=== PATIENT | male | born 1955 | race Caucasian/White ===

== ENCOUNTER 2018-10-18 15:23 | Inpatient (IN) | payer BC ==
[~2018-10-18 15:23] MED LIST: Gadobenate Dimeglumine 529 MG/1 ML (20ML VIAL) ONE; ISOVUE-370 76%-LOCM 1 ML ONE
[2018-10-18] MEDS ORDERED: Acetaminophen 325 MG TAB PO PRN (16:15)
[2018-10-18] MEDS ORDERED: Zolpidem Tartrate 5 MG TAB PO PRN (16:17)
[2018-10-18] MEDS ORDERED: Ondansetron PF 4 MG/2 ML Vial SLOW IVP PRN (16:17)
[2018-10-18 16:24] VITALS: BMI 33.6
[2018-10-18 16:46] LABS: #Basophils 0.1 thou/uL (0.0-0.2); #Lymphocytes 1.3 thou/uL (1.20-3.40); #Monocytes 0.9 thou/uL (0.11-0.59); #Neutrophils 9.5 thou/uL (1.40-6.50); %Basophils 0.7 % (0.0-1.0); %Eosinophils 0.1 % (0.0-10.0); %Lymphocytes 10.7 % (21.0-51.0); %Monocytes 7.6 % (0.0-10.0); %Neutrophils 80.9 % (42.0-75.0); Hemoglobin 15.3 g/dL (14.0-18.0); Mean Corpuscular HGB CONC 34.2 g/dL (32.0-36.0); Mean Corpuscular Hemoglobin 31.1 pg (27.0-31.0); Mean Corpuscular Volume 90.9 fL (78.0-98.0); Mean Platelet Volume 8.3 fL (7.4-10.4); Platelet Count 269 thou/uL (130-400); RBC Distribution Width 11.3 % (11.5-14.5); Red Blood Cell (RBC) Count 4.92 mill/uL (4.70-6.10); White Blood Cell (WBC) Count 11.7 thou/uL (4.8-10.8)
[2018-10-18 16:51] LABS: PTT 26.1 SEC (22.9-36.1); Prothrombin Time 13.5 SEC (12.0-14.7)
[2018-10-18] MEDS: Sodium Chloride 0.9% 1,000 ML IV SCH (17:34)
[2018-10-18 18:09] LABS: ALT (SGPT) 43 U/L (8-55); AST (SGOT) 22 U/L (5-34); Albumin 4.2 g/dL (3.4-4.8); Alkaline Phosphatase 72 U/L (40-150); Anion Gap 15 mmol/L (10-20); BUN (Urea Nitrogen) 24 mg/dL (8.4-25.7); Bilirubin, Total 0.4 mg/dL (0.2-1.2); Calc. Creatinine Clearance 107 mL/min (70-130); Calcium 9.2 mg/dL (7.8-10.44); Carbon Dioxide 22 mmol/L (23-31); Chloride 102 mmol/L (98-107); Estimated GFR-MDRD 69; Globulin 3.2 g/dL (2.4-3.5); Glucose 166 mg/dL (80-115); Potassium 4.1 mmol/L (3.5-5.1); Protein, Total 7.4 g/dL (5.8-8.1); Sodium 135 mmol/L (136-145)
[2018-10-18] MEDS ORDERED: Pantoprazole 40 MG VIAL IVP SCH (19:00)
[2018-10-18] MEDS: Simvastatin 40 MG TAB PO SCH (19:35)
[2018-10-18] MEDS: Dexamethasone 4 MG in Sodium Chloride 0.9% 50 ML IVPB SCH (19:36)
--- NOTE | 2018-10-18 20:33 | CT ---
CT CHEST WITH CONTRAST CT ABDOMEN AND PELVIS WITH CONTRAST: Technique: Multiple contiguous axial images were obtained through the chest with IV enhancement. Indications: Cerebellar tumor. Concern for metastatic disease. FINDINGS: The lung kwan are clear. No evidence of nodule, mass, infiltrate or effusion. Mediastinum is unremarkable. No osseous identified. IMPRESSION: Unremarkable CT chest. CT ABDOMEN AND PELVIS: The liver, spleen, and pancreas unremarkable. Adrenal glands and kidneys unremarkable. Small bowel lo ops appear unremarkable. Colon is unremarkable. Urinary bladder unremarkable. Prostate unremarkable. Aorta normal caliber. No adenopathy is seen. Osseous structures are unremarkable. IMPRESSION: No acute finding. No evidence of metastasis. POS: [facility]
--- NOTE | 2018-10-18 22:18 | MRI ---
MRI BRAIN WITH AND WITHOUT CONTRAST: Technique: Multiplanar, multisequence MRI images were obtained of the brain. Indication: Follow up CT 10-13-18 which described evidence of a left cerebellar mass. FINDINGS: There is a density enhancing mass in the left posterior fossa dural base measuring approximately 4.1 cm AP dimension x 3.1 cm width in the axial plane on post contrast study. There is dural thickening a nd enhancement associated with this mass. There is enhancement involving the petrous ridge and mastoi d air cells indicating extention of soft tissue mass into the bony structures. Review of recent CT sh ows a mottled density with opacification of the petrous and mastoid air cells and some involvement an d erosion into the region of the left jugular bulb. Involvement of the left clivus and occipital bone . This mass is producing mass effect with surrounding vasogenic edema and compression of fourth ventric le with mild midline shift in the cerebellum. In the supratentorial region there are chronic ischemic white matter changes seen. The questioned area of cortical density seen in the anterior parasagittal left frontal cortex on CT i s shown to represent an area of signal abnormality on MR. This shows heterogeneous signal on FLAIR an d T2 with surrounding low signal with a tiny focus of central isodense signal. This shows significant signal loss on gradient echo consistent with hemosiderin deposition. Possibly a tiny focus of enhanc ement associated with this lesion. Cavernoma is suspected with prior hemorrhage. IMPRESSION: 1. Extraaxial densely enhancing mass in the left posterior fossa with measurements given above. There is involvement of the left occipital bone, mastoid air cells, and petrous ridge and possible left cl avus. There is vasogenic edema and mass effect in the cerebellum as noted above. Considerations inclu de an aggressive meningioma, hemangiopericytoma, and a dural based metastasis. 2. There is a focus of hemosiderin deposition in the left parasagittal frontal lobe which showed tiny focus of high density on CT. 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 3. Moderately severe chronic ischemic white matter change. POS: [facility]
[2018-10-19] MEDS: Dexamethasone 4 MG in Sodium Chloride 0.9% 50 ML IVPB SCH ×4 (00:12→23:19)
[2018-10-19] MEDS: Sodium Chloride 0.9% 1,000 ML IV SCH ×4 (05:50→19:56)
[2018-10-19] MEDS: Senokot 8.6 MG TAB PO SCH (08:22)
[2018-10-19] MEDS: Pantoprazole 40 MG VIAL IVP SCH (08:22)
[2018-10-19] MEDS: Docusate 100 MG CAP PO SCH (08:22)
[2018-10-19] MEDS: Amlodipine 5 mg/Benazepril 10 mg CAP PO SCH (08:22)
[2018-10-19] MEDS ORDERED: Non-Formulary Item 1 EACH (Omeprazole [Omeprazole] 40 MG) PO SCH (09:00)
[2018-10-19] MEDS ORDERED: Fentanyl 250 MCG/5 ML VIAL ONE (10:35)
[2018-10-19] MEDS ORDERED: Thrombin 5000 UNITS/5 ML VIAL ONE (10:48)
[2018-10-19] MEDS ORDERED: Sodium Chloride 0.9% 10 ML ONE (10:48)
[2018-10-19] MEDS ORDERED: Bacitracin Zinc Ointment 30 gm TUBE ONE (10:52)
[2018-10-19] MEDS ORDERED: Midazolam HCl 2 mg/2 ml Vial ONE (11:04)
--- NOTE | 2018-10-19 11:31 | PRG ---
DATE OF SERVICE: 10/19/2018 SUBJECTIVE: Mr. Tate was seen in my clinic yesterday. 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 There was significant mass effect on the left cerebellar hemisphere. It appears to be a [place] fibrous tumor. The left frontal small hyperdensity on CT may just be a small cavernoma. Certainly, the left posterior fossa mass will need to be resected. We will plan to do this today. I also talked to him about and obtained consent for harvesting of left fascial autograft should we need to reconstruct his dura. We will plan for procession in the operating room for left retrosigmoid craniotomy and tumor resection. Job ID: [id number]
[2018-10-19] MEDS ORDERED: Fentanyl 100 MCG/2 ML VIAL ONE ×3 (12:20→15:51)
[2018-10-19] MEDS ORDERED: Dexamethasone 4 mg/ml Vial SLOW IVP SCH (13:00)
[2018-10-19] MEDS ORDERED: SUGAMMADEX SODIUM 200 MG/2 ML VIAL ONE (14:25)
[2018-10-19] MEDS ORDERED: hydrALAZINE 20 MG/ML VIAL ONE (14:47)
[2018-10-19] MEDS ORDERED: PROPOFOL 200 MG/20 ML VIAL ONE (15:29)
[2018-10-19] MEDS ORDERED: Dexamethasone 20 MG/5 ML VIAL ONE (15:29)
[2018-10-19] MEDS ORDERED: Lidocaine 1% PF 5 ML VIAL ONE (15:29)
[2018-10-19] MEDS ORDERED: Metoprolol Tartrate 5 MG/5 ML VIAL ONE (15:29)
[2018-10-19] MEDS ORDERED: Ondansetron PF 4 MG/2 ML Vial ONE (15:29)
[2018-10-19] MEDS ORDERED: Rocuronium Bromide 10 MG/ML (10ML VIAL) ONE (15:29)
[2018-10-19] MEDS ORDERED: Vecuronium 10 MG VIAL ONE (15:29)
[2018-10-19] MEDS ORDERED: Glycopyrrolate 0.2 MG/ML 5 ML SYRINGE ONE (15:29)
[2018-10-19] MEDS ORDERED: Promethazine HCl 25 MG/ML VIAL SLOW IVP PRN (15:55)
[2018-10-19] MEDS ORDERED: Ondansetron HCl/PF 4 MG/2 ML Vial IVP PRN (15:55)
[2018-10-19] MEDS ORDERED: Promethazine HCl 25 MG/ML VIAL IM PRN (15:55)
[2018-10-19] MEDS: Morphine 4 MG/ML VIAL SLOW IVP PRN ×5 (16:23→23:20)
[2018-10-19] MEDS: hydrALAZINE 20 MG/ML VIAL SLOW IVP PRN ×2 (16:52→17:32)
--- NOTE | 2018-10-19 18:27 | CON ---
DATE OF CONSULTATION: HISTORY OF PRESENT ILLNESS: A 63-year-old gentleman, who is status post craniotomy for a left posterior fossa tumor. The patient tells me that he is having some headache. He was given some pain medicine as soon as he arrived in the ICU. Two years ago, he had empyema in the left chest requiring decortication and 2 weeks stay at a local hospital. He does snore, but no history of witnessed apnea. Never had a sleep test done. He has smoked a pack a day 25 years ago. Previous history of pneumonia, but no history of TB or asthma. PAST MEDICAL HISTORY: Hypertension, hyperlipidemia. PAST SURGICAL HISTORY: Previous surgeries; left lung decortication. MEDICATIONS: Chronic medication; 1. Amlodipine 1 capsule a day. 2. Effexor 75 a day. 3. Simvastatin 40 a day. 4. Omeprazole 40. 5. Toprol-XL 100. 6. Aspirin. ALLERGIES: NONE. 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 Alcohol minimal. Tobacco, as noted. FAMILY HISTORY: Unremarkable. REVIEW OF SYSTEMS: Otherwise, 10-point negative. PHYSICAL EXAMINATION: VITAL SIGNS: Postop in the ICU, pulse 75, blood pressure 145/86, sats are 96%. GENERAL: Awake, alert, responsive, very appropriate. Moves all 4 extremities. CHEST: Decreased breath sounds. No wheezing. CARDIAC: Normal S1 and S2. No gallops. ABDOMEN: No masses. LABORATORY DATA: Sodium is 135. H and H is 15 and 40. Lytes are normal. White count 11,000. IMPRESSION: 1. Status post left posterior craniotomy. 2. Former smoker. 3. Empyema. 4. Hypertension. 5. High cholesterol. PLAN: Pulmonary Critical Care ICU. We will follow her in the ICU. Otherwise, continue supportive care, PT. We will follow while in the ICU. Job ID: [id number]
[2018-10-19] MEDS: CEFAZOLIN 2 GM in Premix Bag 1 BAG IVPB SCH (20:37)
[2018-10-19] MEDS: Simvastatin 40 MG TAB PO SCH (20:39)
[2018-10-19] MEDS: Fluticasone Propionate Nasal Spray 16 gm Bottle NASAL SCH (21:46)
[2018-10-19] MEDS: HYDROcodone/Acetaminophen 5/325 mg Tablet PO PRN (23:19)
[2018-10-20] MEDS: Dexamethasone 4 MG in Sodium Chloride 0.9% 50 ML IVPB SCH ×3 (05:07→17:38)
[2018-10-20] MEDS: CEFAZOLIN 2 GM in Premix Bag 1 BAG IVPB SCH ×3 (05:07→20:33)
[2018-10-20] MEDS: Sodium Chloride 0.9% (PF) 10 ML VIAL FS PRN (08:12)
[2018-10-20] MEDS: Pantoprazole 40 MG VIAL IVP SCH (08:12)
[2018-10-20] MEDS: Senokot 8.6 MG TAB PO SCH (08:12)
[2018-10-20] MEDS: Docusate 100 MG CAP PO SCH (08:12)
[2018-10-20] MEDS: Fluticasone Propionate Nasal Spray 16 gm Bottle NASAL SCH ×2 (08:13→20:34)
--- NOTE | 2018-10-20 08:15 | PRG ---
DATE OF SERVICE: 10/20/2018 SUBJECTIVE: This morning, the patient is awake, alert, and responsive with headache. He is still on a Cardene drip. OBJECTIVE: VITAL SIGNS: Blood pressure 140/56, saturations are 97% on room air, respirations 18, pulse 80. Afebrile. GENERAL: He is awake, alert, and responsive. CHEST: Decreased breath sounds. No wheezing. CARDIAC: Normal S1, S2. No gallop.no murmers_ IMPRESSION: 1. Status post craniotomy, left posterior fossa tumor. 2. Hypertension. PLAN: Home medicine had been initiated this morning. Hopefully, can get him off the Cardene and discontinue the arterial line. We will follow while in the ICU. Job ID: [id number] [facility]TD[facility]
[2018-10-20] MEDS: HYDROcodone/Acetaminophen 5/325 mg Tablet PO PRN ×2 (08:22→20:33)
[2018-10-20] MEDS: Amlodipine 5 mg/Benazepril 10 mg CAP PO SCH (08:22)
--- NOTE | 2018-10-20 08:25 | CT ---
HEAD CT WITHOUT CONTRAST: HISTORY: Status post left craniotomy. COMPARISON: 10/13/2018 FINDINGS: There is post surgical change centered in the left cerebellar hemisphere, compatible with interval re section of a previously identified left posterior fossa extraaxial lesion. There are small amounts o f air and postoperative hemorrhage/fluid in the left posterior fossa. The surgical cavity appears to be 2.6 x 2.4 cm. There is some mass effect upon the 4th ventricle. [id number], no evidence of associated obstructive hydrocephalus. The cerebrum is unchanged. There is a stable hyperdensity along the left parafalcine region. Adequate aeration of the paranasal sinuses. There is stable opacification of the left mastoid air ce lls. Postoperative changes of the overlying scalp are noted. IMPRESSION: Findings compatible with recent resection of a left posterior fossa extraaxial mass. POS: [facility]
--- NOTE | 2018-10-20 09:01 | OP ---
DATE OF PROCEDURE: 10/19/2018 OPERATING ROOM: OR 12. WOUND CLASSIFICATION: Type 1 wound. CIGAR MAKING MACHINE SUPERVISOR: Julius Smith PA-C PREPROCEDURE DIAGNOSIS: Left posterior fossa extra-axial mass with cerebellar mass effect, midline shift, and edema with encasement of the sigmoid sinus and internal jugular vein and bony extension into the petrous and mastoid regions. POSTPROCEDURE DIAGNOSIS: Left posterior fossa extra-axial mass with cerebellar mass effect, midline shift, and edema with encasement of the sigmoid sinus and internal jugular vein and bony extension into the petrous and mastoid regions. PROCEDURES PERFORMED: 1. Left retrosigmoid craniectomy with resection of tumor, resection of dura. 2. Stereotactic resection of left cerebellar tumor consistent with meningioma. 3. [place] of left fascia melania graft for duraplasty, dural repair due to dural invasion by tumor. 4. Cranioplasty with titanium mesh up to 5 cm for repair of skull defect. 5. Resection of cerebellar tumor, left infratentorial posterior fossa meningioma with skeletonization of sigmoid sinus and jugular bulb. DESCRIPTION OF PROCEDURE: After informed consent was obtained from the patient, the patient was brought to the OR. Proper patient, pause and identifications were carried out. He was placed under excellent endotracheal anesthesia and positioned in the right lateral decubitus position. All appropriate points were padded. Left fascia melania region was identified and this area was sterilely cleansed, prepared, and draped and the patient's head was placed in the [place] head banquet waiter/waitress and the stereotactic accuracy was done with excellent precision following fixation in the [place] headholder. A lazy-S incision was drawn out following the clipping of hair that would allow for retrosigmoid approach to the tumor. This region was sterilely cleansed, prepared, and draped. Proper patient, pause, and identification were carried out. The wound was then opened with a combination of sharp, monopolar, and blunt dissection using anatomic and stereotactic landmarks based on MRI. A circular craniectomy was performed. We immediately encountered bone and the bone was sent to Pathology. We also encountered in the dura, tumor invasion through the dura. The dura was then opened using stereotactic and anatomic localization and tumor again encountered. The portions of the tumor were hemorrhagic, portions were firm and fibrous and the majority of it, I would describe as firm and fibrous relatively avascular tumor. I resected it off the cerebellum, protecting the white matter and followed it all the way to the wall of dura housing tumor that had encased the sigmoid sinus and jugular bulb. I skeletonized this region and there was no violation of the sinus. I assured freedom as well down to the foramen magnum and ensured freedom in the region of the cisterna magna with robust CSF flow. The brain was quite relaxed at the conclusion and I was very satisfied with an aggressive resection. Preliminary pathology was consistent with high-grade meningioma. I then copiously irrigated the wound and maximized hemostasis. Fascia melania graft on the left side was harvested through a separate incision and this was hemostased and irrigated clean and closed in anatomic layers. I then brought the fascia melania graft up to where the dura had been resected due to tumor invasion and sutured it in and then performed cranioplasty with titanium mesh over the less than 5 cm craniectomy defect. DuraSeal was placed as was dissolvable Gel-Foam for sealant. The wound was again maximally hemostased and closed in anatomic layers following sprinkling of vancomycin powder both in the fascia melania wound and the cranial wound. The patient then emerged from anesthesia. Job ID: [id number]
--- NOTE | 2018-10-20 09:53 | PRG ---
DATE OF SERVICE: 10/20/2018 SUBJECTIVE: Mr. Tate is postoperative day 1 from left retrosigmoid craniectomy with reconstruction with titanium mesh and left fascia melania graft following left skull base meningioma resection and debulking. He neurologically is intact with trace nystagmus. He is on a nicardipine drip for systolic blood pressure over 140. We will liberate this to 150 today in allowance and begin to mobilize him likely transfer to floor tomorrow. Job ID: [id number]
[2018-10-20] MEDS: Morphine 4 MG/ML VIAL SLOW IVP PRN (10:48)
[2018-10-20] MEDS: hydrALAZINE 20 MG/ML VIAL SLOW IVP PRN ×2 (10:50→12:08)
[2018-10-20] MEDS: Sodium Chloride 0.9% 1,000 ML IV SCH (11:21)
[2018-10-20] MEDS: traMADol HCl 50 MG TAB PO PRN (11:26)
[2018-10-20] MEDS: Simvastatin 40 MG TAB PO SCH (20:33)
[2018-10-21] MEDS: Dexamethasone 4 MG in Sodium Chloride 0.9% 50 ML IVPB SCH ×2 (00:37→05:28)
[2018-10-21] MEDS: Sodium Chloride 0.9% 1,000 ML IV SCH (00:42)
[2018-10-21] MEDS: CEFAZOLIN 2 GM in Premix Bag 1 BAG IVPB SCH ×3 (04:35→20:22)
[2018-10-21] MEDS: Senokot 8.6 MG TAB PO SCH (07:57)
[2018-10-21] MEDS: Docusate 100 MG CAP PO SCH (07:58)
[2018-10-21] MEDS: Pantoprazole 40 MG VIAL IVP SCH (07:58)
[2018-10-21] MEDS: Sodium Chloride 0.9% (PF) 10 ML VIAL FS PRN (07:58)
[2018-10-21] MEDS: Amlodipine 5 mg/Benazepril 10 mg CAP PO SCH (07:58)
[2018-10-21] MEDS: Fluticasone Propionate Nasal Spray 16 gm Bottle NASAL SCH ×2 (07:59→20:22)
[2018-10-21] MEDS: hydrALAZINE 20 MG/ML VIAL SLOW IVP PRN ×3 (08:50→20:22)
--- NOTE | 2018-10-21 09:07 | PRG ---
DATE OF SERVICE: 10/21/2018 SUBJECTIVE: This morning, he is awake, alert, and responsive. Some headache, but no shortness of breath. OBJECTIVE: VITAL SIGNS: Blood pressure is elevated at 162/91, sats 90%, pulse 114. CHEST: Decreased breath sounds. No wheezing. CARDIAC: Normal S1, S2. No gallops. ABDOMEN: No masses. IMPRESSION: 1. Status post craniotomy, awaiting path. 2. Hypertension. 3. Rhinitis. PLAN: Continue blood pressure medication as outlined. Supportive care, PT. We will follow while in the ICU. Job ID: [id number]
[2018-10-21] MEDS: traMADol HCl 50 MG TAB PO PRN (10:11)
--- NOTE | 2018-10-21 10:56 | ULT ---
ULTRASOUND WITH DOPPLER DUPLEX VENOUS LOWER EXTREMITY BILATERAL: CPT: 60440 ICD-10-PCS: B54D HISTORY: Edema, impaired mobility of lower extremities. TECHNIQUE: Color flow Doppler, spectral waveform analysis of pulsed Doppler, and pizano-scale imaging with marilynn jonh and augmentation, were used to evaluate the bilateral common femoral, femoral, popliteal, fruit grading supervisor ior tibial, and superficial femoral, veins; and the proximal portions of the profunda femoral and gre ater saphenous, veins. FINDINGS: There is appropriate compressibility and flow within the imaged deep vein system of each lower extrem ity without evidence of DVT identified. IMPRESSION: No deep vein thrombosis of visualized bilateral lower extremities. POS: [facility]
[2018-10-21] MEDS: Dexamethasone 4 mg/ml Vial SLOW IVP SCH ×3 (11:03→23:32)
--- NOTE | 2018-10-21 12:03 | PRG ---
DATE OF SERVICE: 10/21/2018 Mr. Tate is postoperative day two from left-sided rectosigmoid craniectomy with invasive meningioma resection. He is neurologically intact and doing well. We will start a Decadron taper. Ultrasound of the lower extremities had been performed, which is negative for DVT. We will transfer him to the floor. I anticipate dismissal over the next couple days. Job ID: [id number]
[2018-10-21] MEDS: Morphine 4 MG/ML VIAL SLOW IVP PRN (12:11)
[2018-10-21] MEDS: HYDROcodone/Acetaminophen 5/325 mg Tablet PO PRN ×2 (15:26→21:43)
[2018-10-21] MEDS: Simvastatin 40 MG TAB PO SCH (20:22)
[2018-10-22] MEDS: CEFAZOLIN 2 GM in Premix Bag 1 BAG IVPB SCH ×3 (03:59→20:01)
[2018-10-22] MEDS: Dexamethasone 1 MG TAB PO SCH ×4 (06:03→23:31)
[2018-10-22] MEDS: Amlodipine 5 mg/Benazepril 10 mg CAP PO SCH (08:32)
[2018-10-22] MEDS: Senokot 8.6 MG TAB PO SCH (08:33)
[2018-10-22] MEDS: Pantoprazole 40 MG VIAL IVP SCH (08:33)
[2018-10-22] MEDS: Fluticasone Propionate Nasal Spray 16 gm Bottle NASAL SCH ×2 (08:33→20:01)
[2018-10-22] MEDS: Docusate 100 MG CAP PO SCH (08:33)
[2018-10-22] MEDS: Sodium Chloride 0.9% (PF) 10 ML VIAL FS PRN (08:34)
--- NOTE | 2018-10-22 09:15 | PRG ---
DATE OF SERVICE: 10/22/2018 SUBJECTIVE: This morning, he is doing well. Slight cough, postnasal drip, but no fever or chills. OBJECTIVE: VITAL SIGNS: Temperature 99, respiratory rate 18, pulse 78, blood pressure 139/75. CHEST: Decreased breath sounds. No wheezing. CARDIAC: Normal S1 and S2. No gallops. ABDOMEN: No masses. IMPRESSION: 1. Status post craniotomy. 2. Postnasal drip, cough, hypertension. PLAN: PT, supportive care. Disposition as per primary care physician. Job ID: [id number]
--- NOTE | 2018-10-22 15:18 | PRG ---
DATE OF SERVICE: 10/22/2018 POSTOPERATIVE RECHECK: Mr. Tate is now postoperative day #3, having undergone stereotactic left craniotomy for tumor resection. Final pathology is still pending. The patient overall has been transferred out of the unit and did well overnight. He states his pain is under much better control and therefore his blood pressures remain under better control. Frankly, he looks very good and is tolerating a good diet. He is on a Decadron taper. We will likely plan for dismissal tomorrow as the patient again is improving very well postoperatively. He remains with good strength and is able to follow commands equally in all four extremities. I should know he has no horizontal nystagmus on exam today. He denies blurred vision and states that his vision also improved after we rounded on him yesterday. Otherwise, he is doing well. Call with any changes. Job ID: [id number]
[2018-10-22] MEDS: Simvastatin 40 MG TAB PO SCH (20:01)
[2018-10-22] MEDS: HYDROcodone/Acetaminophen 5/325 mg Tablet PO PRN (23:31)
[2018-10-23] MEDS: CEFAZOLIN 2 GM in Premix Bag 1 BAG IVPB SCH ×2 (03:51→12:16)
[2018-10-23] MEDS: Dexamethasone 1 MG TAB PO SCH ×2 (05:30→11:32)
[2018-10-23] MEDS: Senokot 8.6 MG TAB PO SCH (09:33)
[2018-10-23] MEDS: Amlodipine 5 mg/Benazepril 10 mg CAP PO SCH (09:33)
[2018-10-23] MEDS: Docusate 100 MG CAP PO SCH (09:33)
[2018-10-23] MEDS: Pantoprazole 40 MG VIAL IVP SCH (09:37)
--- NOTE | 2018-10-23 12:02 | PRG ---
DATE OF SERVICE: 10/23/2018 SUBJECTIVE: Mr. Tate is postoperative day #4 from left-sided retrosigmoid craniotomy for anaplastic meningioma resection. 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 This is invasive into his temporal bone, the petrous region and mastoid air cells along with the sigmoid sinus and internal jugular vein. Surgery was successful in debulking the portion up to the sinus and the patient neurologically is intact and doing very well with improvement even in his cerebellar findings. His wound is dry. We will plan for dismissal home and I have initiated Decadron taper. I have let them know the preliminary pathology and this will be confirmed over the coming days. Without question, he will need adjuvant radiation therapy, likely consistent with external beam radiation. Job ID: [id number]
[2018-10-23 12:21] VITALS: BP 138/82; TEMP 98.8
[2018-10-24] MEDS ORDERED: Dexamethasone 1 MG TAB PO SCH (06:00)
[2018-10-26] MEDS ORDERED: Dexamethasone 1 MG TAB PO SCH (06:00)
== END 2018-10-23 12:15 | disposition home or self-care (01) | DRG 25 ==
LOC: SURG A 15:23 → CCU 10-19 10:24 → SURG A 10-21 20:05
PROVIDERS: ADMIT Surgery; ATTEND Surgery
PROC: 00BC0ZX Excision of Cerebellum, Open Approach, Diagnostic (ICD-10-PCS; principal; 2018-10-19)
PROC: 0NB Head and Facial Bones, Excision (ICD-10-PCS; 2018-10-19)
PROC: 00U207Z Supplement Dura Mater with Autologous Tissue Substitute, Open Approach (ICD-10-PCS; 2018-10-19)
PROC: 0JBM0ZZ Excision of Left Upper Leg Subcutaneous Tissue and Fascia, Open Approach (ICD-10-PCS; 2018-10-19)
DX: C70.0 Malignant neoplasm of cerebral meninges (principal); G93.6 Cerebral edema; C79.51 Secondary malignant neoplasm of bone; I10 Essential (primary) hypertension; E78.00 Pure hypercholesterolemia, unspecified; R09.82 Postnasal drip; Z87.891 Personal history of nicotine dependence; Z79.82 Long term (current) use of aspirin; Z79.899 Other long term (current) drug therapy
CPT/HCPCS: 36415; 36416; 70450; 70553; 71260; 74177; 80053; 85025; 85610; 85730; 86850; 86900; 86901; 88307; 88311; 88325; 88331; 88334; 88341; 88342; 88360; 93005; 93010; 93970; A9577; C1713; C9113; J0360; J1100; J2001; J2250; J2270; J2405; J2704; J3010; J3370; J3490; J7050; J8540; Q9966

== ENCOUNTER 2018-10-26 15:51 | Emergency (ER) | payer BC ==
[~2018-10-26 15:51] MED LIST changes: -Gadobenate Dimeglumine 529 MG/1 ML (20ML VIAL) ONE
[2018-10-26] MEDS ORDERED: Fentanyl 100 MCG/2 ML VIAL ONE (16:14)
[2018-10-26 16:29] LABS: Mean Corpuscular HGB CONC 33.5 g/dL (32.0-36.0); Mean Corpuscular Hemoglobin 30.2 pg (27.0-31.0); Mean Corpuscular Volume 90.2 fL (78.0-98.0); Mean Platelet Volume 7.3 fL (7.4-10.4); Platelet Count 366 thou/uL (130-400); RBC Distribution Width 11.4 % (11.5-14.5); White Blood Cell (WBC) Count 29.1 thou/uL (4.8-10.8)
[2018-10-26 16:36] LABS: INR-International Normal Ratio 0.9; PTT 22.7 SEC (22.9-36.1); Prothrombin Time 12.6 SEC (12.0-14.7)
[2018-10-26 16:46] LABS: Band 2 % (5-11); Lymphocytes 6 % (21-51); MDiff Complete? YES; Monocytes 6 % (0-10); Neutrophil 86 % (42-75); Platelet Morphology Comment Appears Adequate
[2018-10-26 16:50] LABS: ALT (SGPT) 46 U/L (8-55); AST (SGOT) 17 U/L (5-34); Albumin 3.9 g/dL (3.4-4.8); Alkaline Phosphatase 83 U/L (40-150); Anion Gap 17 mmol/L (10-20); BUN (Urea Nitrogen) 20 mg/dL (8.4-25.7); Bilirubin, Total 0.6 mg/dL (0.2-1.2); Calc. Creatinine Clearance 0 mL/min (70-130); Calcium 9.5 mg/dL (7.8-10.44); Carbon Dioxide 25 mmol/L (23-31); Chloride 96 mmol/L (98-107); Estimated GFR-MDRD 89; Globulin 3.2 g/dL (2.4-3.5); Glucose 139 mg/dL (80-115); Potassium 4.4 mmol/L (3.5-5.1); Protein, Total 7.1 g/dL (5.8-8.1); Sodium 134 mmol/L (136-145)
--- NOTE | 2018-10-26 17:21 | CT ---
CT ARTERIOGRAM NECK WITH IV CONTRAST AND 3D MIP IMAGING CT ARTERIOGRAM HEAD WITH IV CONTRAST AND 3D MIP IMAGING CT BRAIN WITH AND WITHOUT IV CONTRAST 10/26/18 HISTORY: Headache. Recent surgery. COMPARISON: 10/20/18. FINDINGS: A very subtle ill-defined area of increased density associated with the left paramedial cortex on the current study likely represents a small amount of subarachnoid blood associated with recent surgery. Chronic ischemic small vessel disease is also evident. No abnormal areas of contrast enhancement. Normal branching of the great vessels at the aortic arch. Good flow into each carotid and vertebral s ystem. At the right carotid bifurcation, there is prominent calcification with a short segment focus of high grade stenosis, estimated at 80%, within the distal common carotid artery just below the bifurcation . Good flow into the internal carotid artery. On the left, there is calcification without significant stenosis evident. Intracranially, [place] is intact. Good flow into each cerebral and cerebellar system withou t focal aneurysm or stenosis. Postoperative changes of the left posterior fossa is present with a defect in the left cerebellum con sistent with recent surgery. IMPRESSION: Significant stenosis limited to the distal right common carotid artery where there is a short segment focus of high grade stenosis. Postoperative changes of left posterior fossa with minimal residual subarachnoid blood. POS: [facility]
--- NOTE | 2018-10-26 17:27 | CT ---
CT ARTERIOGRAM CHEST WITH IV CONTRAST AND 3D MIP IMAGIN10/26/18 HISTORY: Chest pain. Recent surgery. FINDINGS: CT arteriogram chest was performed immediately after angiogram of the head. There is suboptimal opaci fication of the pulmonary arteries. No central filling defects are evident. Normal branching of the g reat vessels of the aortic arch with calcification in the coronary arteries and aortic arch. Lungs ar e well inflated. No pleural fluid or pneumothorax. Small focus of cystic change at the left anterior medial lung base. IMPRESSION: 1. No CT evidence of pulmonary embolus. 2. Atherosclerosis. POS: [facility]
[2018-10-26] MEDS ORDERED: Morphine 4 MG/ML VIAL ONE (17:29)
[2018-10-26] MEDS ORDERED: Dexamethasone 10 MG/ML VIAL ONE (18:30)
[2018-10-26 18:43] LABS: Bilirubin Negative (Negative); Blood, Urine Negative (Negative); Clarity CLEAR (Clear); Glucose, Urine (Dipstick) Negative (Negative); Leukocyte Negative (Negative); Nitrite Negative (Negative); Protein, Urine (Dipstick) Negative (Neg-Trace); Specific Gravity, Urine 1.042 (1.002-1.036)
--- NOTE | 2018-10-27 01:51 | CON ---
DATE OF CONSULTATION: 10/26/2018 HISTORY OF PRESENT ILLNESS: Briefly, Mr. Tate is a 63-year-old gentleman with history of a left-sided aplastic meningioma, removed on 10/19/[address] Mckeon. The patient was released from the hospital on 10/23/2018, where he has been doing well at home and recuperating. Today, the patient took one of his Decadron pills and approximately half an hour later at 1:30, he started getting a headache. His pain medication hydrocodone did not relieve any of his pain and the headache progressed to be quite severe. The patient's took him to the emergency department. Currently, he is in the emergency department. He is uncomfortable, complaining of a headache wrapping around his head and some discomfort in his low back. He is afebrile, hypertensive, and otherwise neurologically intact. He states that he is most comfortable to stand to relieve some of his pain, however, he is very uncomfortable and the medications, the ER has given has not made any difference. The patient has an incision that is healing well on his left cranium and then, a fascia melania incision that is also healing well. REVIEW OF SYSTEMS: Ten-point review of systems has been completed and is negative, otherwise stated in the above HPI. PAST MEDICAL HISTORY: Meningioma removal, lung infection, outer wall of lung. Past medical history also includes hyperlipidemia and hypertension. PAST SURGICAL HISTORY: Meningectomy, , parietal left lobectomy. SOCIAL HISTORY: The patient drinks socially approximately once in a month. Denies drug use and is a former tobacco smoker of cigarettes, quit more than 10 years ago. PHYSICAL EXAMINATION: CONSTITUTIONAL: The patient is alert and oriented. He appears nontoxic. VITAL SIGNS: He is afebrile, hypertensive at 169/85. HEENT. Head is normocephalic. He has a healing incision on the left occipital region. Andressa are in place. There is no significant erythema or edema. No drainage. Pupils are equal, round, and reactive to light. Extraocular movements are intact. Hearing is muffled but intact. Moist mucous membranes. RESPIRATIONS: Normal work of breathing on room air. Symmetric chest rise. CARDIAC: Regular rate and rhythm. EXTREMITIES: The patient is moving all 4 extremities well. He has had 5/5 strength in deltoids, biceps, triceps, wrist extension, finger extension, hip flexion, knee flexion, knee extension, dorsiflexion, and plantar flexion. There is no change in sensation. NEUROLOGIC: The patient is alert and oriented to person, place, and time. Speech is spontaneous and fluent. Normal fund of knowledge. Cranial nerves II through XII are intact. There are no focal motor or sensory deficits noted. DIAGNOSTIC STUDIES: Extensive imaging has been completed, showing only a slight increase in ventricle size in comparison to previous CT of the head as well as slight increase in vasogenic edema, surrounding of the tumor location, there is an area of healing where the tumor was removed. ASSESSMENT AND PLAN: Mr. Tate is a 63-year-old male recovering from an aplastic meningioma removal on 10/19/2018. I have spoken with Dr. Peres and Dr. Mckeon, and we would like to treat his head pain and prevent any further vasogenic edema with Decadron 10 mg and we will restart his steroid taper more slowly. If this does not relieve the patient's pain, then , we will admit him for observation overnight and for pain control. Job ID: [id number] [facility]
== END 2018-10-26 20:05 | disposition home or self-care (01) ==
LOC: ERS 15:51
DX: G89.18 Other acute postprocedural pain (principal); R51 Headache; E78.5 Hyperlipidemia, unspecified; I10 Essential (primary) hypertension; Z87.891 Personal history of nicotine dependence; Z79.899 Other long term (current) drug therapy
CPT/HCPCS: 70450; 70496; 70498; 71275; 80053; 81003; 84484; 85025; 85610; 85730; 93005; 96374; 96375; J1100; J2270; J3010; Q9966

== ENCOUNTER 2018-10-29 12:15 | Inpatient (IN) | payer BC ==
[2018-10-29] MEDS ORDERED: Acetaminophen 325 MG TAB PO PRN (12:50)
[2018-10-29] MEDS ORDERED: traMADol HCl 50 MG TAB PO PRN ×2 (12:51→16:44)
[2018-10-29] MEDS ORDERED: Ondansetron PF 4 MG/2 ML Vial SLOW IVP PRN (12:51)
[2018-10-29] MEDS ORDERED: HYDROcodone/Acetaminophen 5/325 mg Tablet PO PRN ×2 (12:51→16:39)
[2018-10-29] MEDS ORDERED: Scopolamine 1.5 mg/72 hour Patch TOP PRN (12:52)
[2018-10-29] MEDS ORDERED: Sodium Chloride 0.9% 1,000 ML IV SCH (13:00)
[2018-10-29 13:57] LABS: Hemoglobin 15.2 g/dL (14.0-18.0); Mean Corpuscular HGB CONC 33.7 g/dL (32.0-36.0); Mean Corpuscular Hemoglobin 30.5 pg (27.0-31.0); Mean Corpuscular Volume 90.5 fL (78.0-98.0); Mean Platelet Volume 7.2 fL (7.4-10.4); Platelet Count 359 thou/uL (130-400); RBC Distribution Width 11.4 % (11.5-14.5); Red Blood Cell (RBC) Count 4.97 mill/uL (4.70-6.10); White Blood Cell (WBC) Count 20.9 thou/uL (4.8-10.8)
[2018-10-29 14:09] LABS: ALT (SGPT) 68 U/L (8-55); AST (SGOT) 30 U/L (5-34); Alkaline Phosphatase 81 U/L (40-150); Anion Gap 19 mmol/L (10-20); BUN (Urea Nitrogen) 21 mg/dL (8.4-25.7); Bilirubin, Total 0.8 mg/dL (0.2-1.2); Calc. Creatinine Clearance 125 mL/min (70-130); Calcium 9.7 mg/dL (7.8-10.44); Carbon Dioxide 21 mmol/L (23-31); Chloride 89 mmol/L (98-107); Estimated GFR-MDRD 82; Globulin 3.6 g/dL (2.4-3.5); Glucose 122 mg/dL (80-115); Potassium 4.3 mmol/L (3.5-5.1); Protein, Total 7.6 g/dL (5.8-8.1); Sodium 125 mmol/L (136-145)
[2018-10-29 14:25] LABS: Lymphocytes 6 % (21-51); MDiff Complete? YES; Monocytes 10 % (0-10); Neutrophil 84 % (42-75); Platelet Morphology Comment Appears Adequate; RBC Morphology Normal
[2018-10-29] MEDS: Morphine 4 MG/ML VIAL SLOW IVP PRN ×6 (14:48→22:28)
[2018-10-29] MEDS: CEFAZOLIN 2 GM in Premix Bag 1 BAG IVPB SCH ×2 (15:51→21:28)
--- NOTE | 2018-10-29 16:06 | CT ---
CT HEAD WITHOUT CONTRAST: 10/29/2018 HISTORY: Severe headache and light sensitivity, post craniotomy, on 09/29/2018. COMPARISON: 10/26/2018 FINDINGS: Post surgical changes of the left posterior fossa are again present and are unchanged, compared to th e recent study, with overlying skin clips and scalp soft tissue swelling. The resection site in the left posterior fossa is overall similar to the prior exam. There is a stable, hyperdense, subcentimeter focus in a left anterior frontal parafalcine location. There is a hyperdense focus in the right parietal lobe, which is within the sulcus and is more tubula r in configuration, probably related to prominence of a vessel. This was also present on prior exam. No new focal area of hemorrhage is seen, and there is no acute infarction identified. No midline s hift or mass effect is appreciated. Opacification of the left mastoid air cells is again noted. IMPRESSION: 1. Stable postoperative changes, left posterior fossa. 2. Stable subcentimeter hyperdense focus, left anterior frontal parafalcine location. 3. Stable chronic small vessel ischemic changes. 4. Stable opacification of the left mastoid air cells. POS: [facility]
[2018-10-29] MEDS: Acetaminophen 1,000 MG in Premix Bag 1 BAG IVPB PRN ×2 (17:47→23:33)
[2018-10-29] MEDS: Dexamethasone 4 mg/ml Vial SLOW IVP SCH ×2 (17:47→23:08)
[2018-10-29] MEDS ORDERED: Sodium Chloride 256 MEQ in Sterile Water Injection 936 ML IV SCH (20:15)
[2018-10-29] MEDS: Atorvastatin Calcium 20 MG TAB PO SCH (20:41)
[2018-10-29] MEDS ORDERED: Simvastatin 40 MG TAB PO SCH (21:00)
[2018-10-29 22:17] LABS: Anion Gap 16 mmol/L (10-20); BUN (Urea Nitrogen) 19 mg/dL (8.4-25.7); Calc. Creatinine Clearance 116 mL/min (70-130); Carbon Dioxide 22 mmol/L (23-31); Chloride 90 mmol/L (98-107); Estimated GFR-MDRD 76; Glucose 157 mg/dL (80-115); Potassium 4.2 mmol/L (3.5-5.1); Sodium 124 mmol/L (136-145)
[2018-10-29 23:25] LABS: Sodium 126 mmol/L (136-145)
[2018-10-30] MEDS: Morphine 4 MG/ML VIAL SLOW IVP PRN ×2 (00:31→18:22)
[2018-10-30] MEDS: tiZANidine HCl 4 MG TAB PO PRN ×2 (01:23→13:19)
[2018-10-30] MEDS ORDERED: Fentanyl 100 MCG/2 ML VIAL SLOW IVP SCH ×2 (01:30→03:00)
[2018-10-30] MEDS ORDERED: Dexamethasone 4 mg/ml Vial SLOW IVP SCH (02:15)
[2018-10-30] MEDS ORDERED: HYDROcodone/Acetaminophen 10/325 mg Tablet PO PRN ×4 (02:20→17:11)
[2018-10-30] MEDS ORDERED: fentaNYL Citrate/PF 2,000 MCG in Sodium Chloride 0.9% 60 ML IV PRN (02:48)
[2018-10-30 03:36] LABS: Sodium 123 mmol/L (136-145)
[2018-10-30] MEDS: Dexamethasone 4 mg/ml Vial SLOW IVP SCH ×4 (06:08→23:03)
[2018-10-30] MEDS: CEFAZOLIN 2 GM in Premix Bag 1 BAG IVPB SCH ×3 (06:08→22:16)
[2018-10-30] MEDS: Insulin Regular 300 UNITS/3 ML VIAL SC PRN ×2 (06:14→12:31)
[2018-10-30 07:44] LABS: Sodium 126 mmol/L (136-145)
[2018-10-30] MEDS: Pantoprazole 40 MG VIAL IVP SCH (08:44)
[2018-10-30] MEDS: Dexamethasone 1 MG TAB PO SCH (08:45)
[2018-10-30] MEDS: Amlodipine 5 mg/Benazepril 10 mg CAP PO SCH (08:45)
[2018-10-30] MEDS: Acetaminophen 1,000 MG in Premix Bag 1 BAG IVPB PRN ×2 (08:49→20:52)
[2018-10-30] MEDS ORDERED: AMLODIPINE BESYLATE PO SCH (09:00)
[2018-10-30] MEDS ORDERED: Aspirin Chewable 81 MG TAB PO SCH (09:00)
[2018-10-30] MEDS ORDERED: BENAZEPRIL PO SCH (09:00)
[2018-10-30 09:22] LABS: Hemoglobin 15.5 g/dL (14.0-18.0); Mean Corpuscular Hemoglobin 29.5 pg (27.0-31.0); Mean Corpuscular Volume 89.3 fL (78.0-98.0); Mean Platelet Volume 7.1 fL (7.4-10.4); Platelet Count 375 thou/uL (130-400); RBC Distribution Width 11.4 % (11.5-14.5); Red Blood Cell (RBC) Count 5.25 mill/uL (4.70-6.10)
[2018-10-30 10:08] LABS: Sodium, Urine 118 mmol/L (Not Available)
[2018-10-30] MEDS ORDERED: HYDROmorphone 10 mg/100 ml CADD IV PRN (10:14)
[2018-10-30] MEDS ORDERED: Polyethylene Glycol 3350 17 GM Packet PO SCH (10:15)
[2018-10-30] MEDS: hydrALAZINE 20 MG/ML VIAL SLOW IVP PRN ×3 (10:27→20:05)
[2018-10-30] MEDS ORDERED: Sodium Chloride 256 MEQ in Sterile Water Injection 936 ML IV SCH (10:47)
[2018-10-30 11:06] LABS: Anion Gap 16 mmol/L (10-20); BUN (Urea Nitrogen) 22 mg/dL (8.4-25.7); Calc. Creatinine Clearance 141 mL/min (70-130); Calcium 9.7 mg/dL (7.8-10.44); Carbon Dioxide 18 mmol/L (23-31); Chloride 96 mmol/L (98-107); Estimated GFR-MDRD Greater than 90; Glucose 172 mg/dL (80-115); Potassium 4.3 mmol/L (3.5-5.1); Sodium 126 mmol/L (136-145)
--- NOTE | 2018-10-30 11:15 | PRG ---
DATE OF SERVICE: 10/30/2018 SUBJECTIVE: Mr. Tate is approximately 10 days status post rectosigmoid resection of anaplastic meningioma. He had a fairly uneventful postoperative course and was discharged home. A couple days after discharge, he did bounce back to the ER for a debilitating headache. He was medicated at that time and sent home. He was seen in the clinic setting yesterday by Julius Smith PA-C. At that point in time, he had had leaking from his retrosigmoid incision located on the left side. That was oversewn in the clinic and due to severe pain, he was admitted to hospital for observation. He has had a very rough 24 hours reporting initially severe headache and pain in the neck and shoulders. This has now moved to where he has severe low back pain. We had a very difficult time controlling his pain. We had the Pain service see him and they have placed him on a fentanyl [employer]. We now request that they increase that to something a bit more potent and longer lasting. For a brief period of time, he did not have any leakage, but now he started to leak again out of the wound. I believe he needs a lumbar drain. He is in too much pain at this point; however, to affectively place a lumbar drain. Once we maintain improved pain control, we will place a lumbar drain at some point late this morning or early afternoon. He also has what I believe is likely symptomatic hyponatremia. He had a sodium of 135 approximately 6 months ago in a different setting. He has now been teetering in the mid to low 120s. We started him on hypertonic 1.5% saline where that had been some fluctuation in his levels, but it appears there is now an upward trend. He has some delirium based on what the family is telling me. He answers my questions appropriately but appers agitated. Our goal is to continue with treatment of his low sodium levels. I believe this will also improve the way he feels clinically. The goal today is improved pain control, placement of lumbar drain, and correction of his hyponatremia. Job ID: [id number] [facility]
[2018-10-30 11:43] LABS: Band 1 % (5-11); Lymphocytes 1 % (21-51); MDiff Complete? YES; Monocytes 2 % (0-10); Neutrophil 96 % (42-75); Platelet Morphology Comment Appears Adequate; White Blood Cell (WBC) Count 25.8 thou/uL (4.8-10.8)
--- NOTE | 2018-10-30 12:13 | RAD ---
KUB: COMPARISON: None. HISTORY: Back pain and abdominal pain. FINDINGS: A single view of the abdomen shows a nonspecific, nonobstructed bowel gas pattern. Air and stool is seen throughout the colon to the level of the rectum. Moderate stool retention is seen. No suspicio us calcifications are present. IMPRESSION: Moderate stool retention without evidence of obstruction. POS: [facility]
[2018-10-30 12:21] LABS: Osmolality, Urine 934 mOsm/kg (200-1150)
[2018-10-30 14:29] LABS: Sodium 125 mmol/L (136-145)
[2018-10-30] MEDS ORDERED: Acetaminophen 1,000 MG in Premix Bag 1 BAG IVPB SCH (15:30)
[2018-10-30] MEDS ORDERED: Sodium Chloride 3% 500 ML IVPB SCH (15:30)
[2018-10-30] MEDS ORDERED: CCU Electrolyte Replacement 1 EACH FS ONE (15:57)
[2018-10-30] MEDS ORDERED: Potassium Phosphate 9 MMOL in Sodium Chloride 0.9% 100 ML IVPB PRN (16:07)
[2018-10-30] MEDS ORDERED: CCU ELECTROLYTE REPLACEMENT PROTOCOL FS PRN (16:07)
[2018-10-30] MEDS ORDERED: Magnesium Oxide 400 MG TAB PO PRN ×2 (16:07)
[2018-10-30] MEDS ORDERED: Potassium Chloride 20 MEQ TAB PO PRN (16:07)
[2018-10-30] MEDS ORDERED: Potassium Chloride 40 MEQ in Sodium Chloride 0.9% 250 ML 250 ML IVPB PRN (16:07)
[2018-10-30] MEDS ORDERED: Potassium Phosphate 12 MMOL in Sodium Chloride 0.9% 250 ML 250 ML IV PRN (16:07)
[2018-10-30] MEDS ORDERED: Potassium Chloride 40 MEQ in Premix Bag 1 BAG IVPB PRN (16:07)
[2018-10-30] MEDS ORDERED: Magnesium 2 GM/50 ML 2 GM in Premix Bag 1 BAG IVPB PRN (16:07)
[2018-10-30] MEDS ORDERED: PHOS-NAK 1 PKT PACK PO PRN ×2 (16:07)
[2018-10-30] MEDS ORDERED: Potassium Phosphate 15 MMOL in Sodium Chloride 0.9% 250 ML 250 ML IV PRN (16:07)
--- NOTE | 2018-10-30 16:42 | RAD ---
CHEST ONE VIEW: 10/30/18 INDICATION: Central line placement. COMPARISON: None. FINDINGS: There is a right IJ central venous catheter in place. No pneumothorax is evident. Low lung volumes ac centuate the cardiac silhouette and pulmonary vasculature. No definite acute air space opacities, ple ural effusions, or pneumothorax evident. IMPRESSION: New right IJ catheter venous catheter with tip projecting in the region of the right atrium. No pneum othorax. POS: [facility]
[2018-10-30 16:46] LABS: Sodium 128 mmol/L (136-145)
--- NOTE | 2018-10-30 16:56 | OP ---
DATE OF PROCEDURE: 10/30/2018 PREOPERATIVE DIAGNOSIS: Acute syndrome of inappropriate antidiuretic hormone secretion with severe hyponatremia. POSTOPERATIVE DIAGNOSIS: Acute syndrome of inappropriate antidiuretic hormone secretion with severe hyponatremia. PROCEDURE PERFORMED: Placement of right internal jugular central venous catheter. INDICATIONS FOR PROCEDURE: This is a 63-year-old man, who is 11 days status post retrosigmoid craniectomy with resection of tumor. The patient was readmitted with acute hyponatremia with profound neurologic deficits. I have been asked to place a central venous catheter to facilitate hypertonic salt solution. DESCRIPTION OF PROCEDURE: Informed consent was obtained from the patient's . The patient was placed in supine position. Chest wall was sterilely prepped and draped in usual fashion. The skin below the left clavicle was anesthetized with 1% lidocaine. Left subclavian vein was cannulated with an 18-gauge introducer needle returning dark venous blood. Multiple attempts to pass guidewire were unsuccessful. Therefore, we decided to proceed with the placement of internal jugular central venous catheter. Thus, we used different set of equipments and catheter. I then re-gowned and draped after the right neck was sterilely prepped and draped in usual fashion. The skin was anesthetized with 1% lidocaine. Right internal jugular vein was cannulated with an 18-gauge introducer needle returning dark venous blood. Guidewire was passed through the needle and placed in the right internal jugular vein without resistance. Needle was withdrawn over the guidewire. Stab incision was made adjacent to the guidewire. Dilator was passed over the guidewire to dilate the subcutaneous tissue. Triple-lumen central venous catheter was advanced over the guidewire and placed in the right internal jugular vein without resistance stopping at the 15 cm suri. Guidewire was removed. Dark venous blood was aspirated from all 3 ports, which were individually flushed with saline. Catheter was secured to anterior neck using 3-0 silk suture at 2 points. Biopatch and sterile dressing were applied. The patient tolerated the procedure without any apparent complication and remains in critical, but stable condition. Chest x-ray confirmed proper placement. No pneumothorax present. Job ID: [id number]
[2018-10-30] MEDS: HumaLOG 300 UNITS/3 ML VIAL SC PRN ×2 (18:24→20:33)
--- NOTE | 2018-10-30 18:25 | PRG ---
DATE OF SERVICE: 10/30/2018 SUBJECTIVE: Mr. Tate was moved from the floor to the ICU. He was moved because he became more delirious and less interactive. His sodium levels continued within the low-to-mid 120s. I consulted both Dr. Pappas and Dr. Gifford to assist with central line placement and management of his electrolyte disturbance. He has now had a central line placed and he has been started on 3% hypertonic saline. In the ICU, he is awake and alert, but minimally interactive. He looks around and moves all 4 extremities spontaneously. Over the course of most of the day, he had a low-grade fever. By the time he reached the ICU, he had spiked to 103, although , it is back down to around 99 at this point in time. We will go ahead and victoria- culture him to rule out infection. I inspected his incision and currently it is not leaking. He is resting comfortably in supine position in the bed. We will continue to work toward correcting his electrolyte abnormalities. We will continue to evaluate for infection. Assuming that he remains calm, we will work toward CT scan in the morning after potential placement of lumbar drain. I think we also need to be vigilant with respect to what may be alcohol withdrawal. His indicates that he drinks at least 6 beers at night. She states he has not had anything in a few weeks, but nonetheless delerium tremens is a real possibility given his constellation of symptoms since admission. I have consulted Dr. Guardado to assist with additional management while in the ICU. Job ID: [id number] [facility]
[2018-10-30 18:47] LABS: Sodium 128 mmol/L (136-145)
[2018-10-30] MEDS: Cefepime 2 GM in Sodium Chloride 0.9% 100 ML IVPB SCH (20:02)
[2018-10-30] MEDS: Vancomycin HCl 1.5 GM in Sodium Chloride 0.9% 250 ML 300 ML IVPB SCH (20:03)
[2018-10-30] MEDS: Polyethylene Glycol 3350 17 GM Packet PO SCH (20:17)
[2018-10-30] MEDS: Atorvastatin Calcium 20 MG TAB PO SCH (20:17)
[2018-10-30 20:33] LABS: Sodium 127 mmol/L (136-145)
[2018-10-30] MEDS ORDERED: Thiamine HCl 200 MG/2 ML VIAL SLOW IVP SCH (20:45)
[2018-10-30 22:17] LABS: Sodium 127 mmol/L (136-145)
[2018-10-31] MEDS: Morphine 4 MG/ML VIAL SLOW IVP PRN ×2 (00:21→04:41)
[2018-10-31] MEDS: Labetalol HCl 100 MG/20 ML VIAL SLOW IVP PRN ×3 (00:33→10:03)
[2018-10-31] MEDS ORDERED: Sodium Chloride 3% 500 ML IVPB SCH (04:15)
[2018-10-31] MEDS: Acetaminophen 1,000 MG in Premix Bag 1 BAG IVPB PRN ×2 (04:56→13:44)
[2018-10-31] MEDS: Dexamethasone 4 mg/ml Vial SLOW IVP SCH ×3 (05:00→17:08)
[2018-10-31] MEDS: CEFAZOLIN 2 GM in Premix Bag 1 BAG IVPB SCH ×2 (05:00→13:45)
[2018-10-31 05:06] LABS: Anion Gap 20 mmol/L (10-20); BUN (Urea Nitrogen) 9 mg/dL (8.4-25.7); Calc. Creatinine Clearance 168 mL/min (70-130); Calcium 9.5 mg/dL (7.8-10.44); Carbon Dioxide 17 mmol/L (23-31); Chloride 95 mmol/L (98-107); Estimated GFR-MDRD Greater than 90; Glucose 173 mg/dL (80-115); Potassium 3.7 mmol/L (3.5-5.1); Sodium 128 mmol/L (136-145)
[2018-10-31 05:13] LABS: Band 11 % (5-11); Elliptocytes SLIGHT = 2-5 cells (100X) (0-1/hpf); Hemoglobin 14.1 g/dL (14.0-18.0); Lymphocytes 3 % (21-51); MDiff Complete? YES; Mean Corpuscular HGB CONC 32.8 g/dL (32.0-36.0); Mean Corpuscular Hemoglobin 29.7 pg (27.0-31.0); Mean Corpuscular Volume 90.4 fL (78.0-98.0); Mean Platelet Volume 7.1 fL (7.4-10.4); Metamyelocyte 1 % (0-0); Monocytes 3 % (0-10); Neutrophil 82 % (42-75); Platelet Count 248 thou/uL (130-400); Platelet Morphology Comment Appears Adequate; RBC Distribution Width 11.5 % (11.5-14.5); Red Blood Cell (RBC) Count 4.75 mill/uL (4.70-6.10); White Blood Cell (WBC) Count 29.2 thou/uL (4.8-10.8)
[2018-10-31] MEDS: HumaLOG 300 UNITS/3 ML VIAL SC PRN ×4 (05:18→21:34)
[2018-10-31 05:37] LABS: Sodium 128 mmol/L (136-145)
[2018-10-31] MEDS: Cefepime 2 GM in Sodium Chloride 0.9% 100 ML IVPB SCH (07:39)
--- NOTE | 2018-10-31 07:46 | PRG ---
DATE OF SERVICE: 10/31/2018 SUBJECTIVE: Mr. Tate is on the second day of his hospital admission. The last 36 hours had been quite turbulent for him. He is now in the ICU A2. His sodium which fell to 127 early last night, is now corrected back to 128, and 3% saline is still being infused with a recheck planned in an hour. White blood cell count has risen from 25 to 29, so this will need to continue to be watched. He is less responsive for me today, although his pupils are more briskly reactive and equal. Temperature became a problem overnight and a cooling blanket was started. He is receiving doses of Ofirmev p.r.n. for this purpose. He no longer is shaking, although he does not follow commands for me exclusively this morning. Nurse states that overnight he would still follow commands from [id number] and is difficult to arouse. 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 Plan this morning was to place a lumbar drain. However, his incision is no longer leaking, so we may not need to proceed that for that reason, but we will discuss with Dr. Weir to make that final decision. For now, we will continue to watch sodiums and track his neurologic progress. Job ID: [id number]
[2018-10-31 08:02] LABS: Actual Bicarbonate (HCO3a) 16.9 mEq/L (22-28); Base Excess (BEa) -3.6 mEq/L (-2.0 to +3.0); Calcium, Ionized 1.19 mmol/L (1.12-1.30); Carboxyhemoglobin (COHb) 0.7 gm% (0.0-3.0); Hemoglobin (Hb) 14.3 g/dL (14.0-18.0); O2 Tension (PaO2) 66.4 mmHg (> 80.0); Potassium - ABG Lab 3.51 mmol/L (3.70-5.30); pH, Arterial 7.52 (7.35-7.45)
[2018-10-31 08:07] LABS: ALV-art Gradient 135.385 (0-20); CO2 Tension 21.1 mmHg (35.0-45.0); Puncture Site RRA
[2018-10-31 08:24] LABS: Sodium 128 mmol/L (136-145)
[2018-10-31] MEDS: Vancomycin HCl 1.5 GM in Sodium Chloride 0.9% 250 ML 300 ML IVPB SCH ×2 (08:24→19:42)
[2018-10-31] MEDS ORDERED: Lidocaine 1% (PF) 30 ML VIAL ONE (08:37)
[2018-10-31] MEDS ORDERED: Thiamine HCl 200 MG/2 ML VIAL SLOW IVP SCH (09:00)
[2018-10-31] MEDS: Amlodipine 5 mg/Benazepril 10 mg CAP PO SCH (09:14)
[2018-10-31] MEDS: Polyethylene Glycol 3350 17 GM Packet PO SCH ×2 (09:15→20:11)
--- NOTE | 2018-10-31 09:48 | RAD ---
RADIOGRAPH CHEST 1 VIEW: DATE: 10/31/2018. TIME: 7:27 a.m. HISTORY: A 63-year-old male with respiratory failure. FINDINGS: There is no air space density, pulmonary edema, or pneumothorax. The lateral costophrenic angles are sharp. Central vascular catheter descending from the right neck distal tip overlying SVC/right atri al junction, is presumably entering through the right internal jugular vein. No interval change comp ared to 10/30/2018. IMPRESSION: 1. No acute pulmonary findings. 2. Right-sided central vascular catheter with distal tip overlying the superior vena cava/right atri al junction. christine [] POS: [facility]
[2018-10-31] MEDS: Meropenem 2 GM in Admixture Fee 1 EACH IVPB SCH ×3 (09:53→23:18)
[2018-10-31] MEDS: Dexamethasone 1 MG TAB PO SCH (09:54)
[2018-10-31] MEDS: Pantoprazole 40 MG VIAL IVP SCH (09:59)
[2018-10-31] MEDS: Sodium Chloride 0.9% (PF) 10 ML VIAL FS PRN (10:00)
--- NOTE | 2018-10-31 10:11 | PRG ---
DATE OF SERVICE: 10/31/2018 SUBJECTIVE: This morning, he remains in the ICU, encephalopathic. He is having some shallow respirations as per respiratory. OBJECTIVE: VITAL SIGNS: Saturations are 95% on 2 L nasal O2, blood pressure is 163/75, pulse 80, and respirations 18. CHEST: Bilateral rhonchi. CARDIAC: Sinus tach. ABDOMEN: Soft without any masses. LABORATORY DATA: White count 29,000, hemoglobin and hematocrit of 14 and 43, and platelet count 248. PO2 of 66, pCO2 of 21, pH 7.52 on 3 L. Sodium is 128, improved. Renal function is normal, and his blood cultures growing gram-negative rods. IMPRESSION: 1. Gram-negative sepsis. 2. Status post craniotomy. 3. Alcohol abuse. 4. Encephalopathy. 5. Hyponatremia. PLAN: Lumbar drain is going to be inserted today. I have increased his dose of Maxipime infection. Otherwise, continue supportive care and neb treatments. He may be intubated prior to the procedure. Discussed with Dr. Weir, neurosurgeon on-call. One-half hour of critical time. Job ID: [id number]
[2018-10-31] MEDS ORDERED: Benzocaine 20% Spray 60 ML CAN ONE (11:11)
--- NOTE | 2018-10-31 11:21 | CT ---
PRELIMINARY REPORT/[facility]/EMERGENCY AFTER HOURS PROCEDURE: Addendum created by Travon Arredondo MD on 10/31/2018 7:13 AM Central Time ([place] & [place]) Prior report subs equently submitted for review. LEFT anterior frontal parafalcine hyperdensity is unchanged. Initial R eport created on 10/31/2018 4:10 AM Central Time ([place] & [place]) EXAM: CT Head Without Contrast EXAM DATE/TIME: 10/31/2018 3:48 AM CLINICAL HISTORY: 63 years old, male; Screening exam; Prior surgery; Surgery type: Craniotomy; Patient HX: Eval for hyd rocephalus TECHNIQUE: Axial computed tomography images of the head/brain without contrast. COMPARISON: CT Brain WO Con 10/29/2018 3:19 PM FINDINGS: Brain: There is volume loss and hypoattenuation involving the LEFT cerebellum probably from prior cleo gical intervention. There are confluent areas of hypoattenuation within the periventricular and subco rtical white matter compatible with moderate chronic microvascular ischemic change. Ventricles: The third and fourth ventricles appears increased in size when compared with prior exam a nd there is mild prominence of the temporal horns raising the possibility of hydrocephalus. Bones/joints: Patient is post LEFT occiput craniotomy. Sinuses: Visualized sinuses are unremarkable. No acute sinusitis. Mastoid air cells: There is opacification of the LEFT mastoid air cells. Soft tissues: Unremarkable. IMPRESSION: The third and fourth ventricles appears increased in size when compared with prior exam and there is mild prominence of the temporal horns raising the possibility of hydrocephalus. Thank you for allowing us to participate in the care of your patient. Dictated and Authenticated by: Travon Arredondo MD 10/31/2018 4:10 AM Central Time ([place] & [place]) FINAL REPORT EMERGENT AFTER HOURS CT OF THE BRAIN WITHOUT CONTRAST: FINDINGS/IMPRESSION: I agree with the findings and impression given in the preliminary report per [facility] physician. Findin gs are suggestive of hydrocephalus. The lateral ventricles and third ventricle are more prominent th an on the prior examination. POS: [facility]
[2018-10-31 11:34] LABS: Sodium 129 mmol/L (136-145)
--- NOTE | 2018-10-31 11:37 | PRG ---
DATE OF SERVICE: 10/31/2018 SUBJECTIVE: Mr. Tate was transferred to the ICU yesterday where he underwent placement of a central line for the purposes of delivery of hypertonic saline 3%. He has had a slow correction of his hyponatremia. He has remained encephalopathic over the past 12 to 18 hours. He has spiked high-grade fevers over that interval of time. He has been on broad-spectrum antibiotics. He underwent repeat CT examination of the head today which showed enlargement of the ventricles consistent with hydrocephalus. He has not been leaking from the incision site now since late yesterday. I discussed with the family placement of ventriculostomy. This will allow us to monitor his pressures, sample spinal fluid and divert spinal fluid from his retro sigmoid incision. They offered consent and that was placed without event this morning. There was a turbid fluid egress from the tubing consistent with either infection or a proteinaceous debris from his recent surgery. He has also had some shallow respirations and Dr. Guardado has indicated he may require intubation. I have updated the family. The neurosurgical plan will be one of ongoing broad-spectrum antibiotic administration until cultures are complete. We will continue with EVD drainage set at 10 cm of water. He continues to be monitored by our Nephrology colleague for his hyponatremia. His current condition is critical. Job ID: [id number]
[2018-10-31] MEDS ORDERED: Propofol 1,000 MG/100 ML VIAL IV ONE (12:37)
[2018-10-31] MEDS ORDERED: Morphine 2 MG/ML SYRINGE SLOW IVP PRN (13:24)
[2018-10-31] MEDS ORDERED: Lorazepam 2 MG/ML VIAL SLOW IVP PRN (13:24)
[2018-10-31] MEDS ORDERED: DISCONTINUE PREVIOUS NARCOTIC PAIN MEDICATIONS AND BENZODIAZEPINES FS SCH (13:24)
[2018-10-31] MEDS ORDERED: Fentanyl BOLUS 250 ML IVPB PRN (13:24)
[2018-10-31] MEDS ORDERED: fentaNYL Citrate/PF 2,000 MCG in Sodium Chloride 0.9% 60 ML IV SCH (13:24)
[2018-10-31] MEDS ORDERED: Propofol BOLUS 1,000 MG/100 ML VIAL IV PRN (13:24)
[2018-10-31] MEDS ORDERED: Ventilator Sedation Protocol 1 EACH FS SCH (13:30)
[2018-10-31 14:16] LABS: Actual Bicarbonate (HCO3a) 17.1 mEq/L (22-28); Base Excess (BEa) -4.2 mEq/L (-2.0 to +3.0); Calcium, Ionized 1.23 mmol/L (1.12-1.30); Carboxyhemoglobin (COHb) 0.5 gm% (0.0-3.0); Hemoglobin (Hb) 14.4 g/dL (14.0-18.0); O2 Tension (PaO2) 198.2 mmHg (> 80.0); pH, Arterial 7.49 (7.35-7.45)
[2018-10-31] MEDS: Propofol 1,000 MG/100 ML VIAL IV PRN ×2 (15:39→19:01)
[2018-10-31 15:50] LABS: ALV-art Gradient 129.425 (0-20); CO2 Tension 23.1 mmHg (35.0-45.0); Puncture Site RRA
[2018-10-31 16:08] LABS: Sodium 128 mmol/L (136-145)
--- NOTE | 2018-10-31 16:09 | CON ---
DATE OF CONSULTATION: 10/31/2018 REASON FOR CONSULTATION: Meningitis with bacteremia. HISTORY OF PRESENT ILLNESS: A 63-year-old gentleman who had been diagnosed with posterior fossa meningioma with anaplastic features, Dr. Mckeon performed resection of about 95% of the malignancy and localized to the left side and he had been discharged and developed worsening headaches with drainage at the site of the surgical incision. The describes the drainage as having some whitish mucoid components. Because of the headache, he came to the emergency room, was evaluated and released and then he developed worsening of the headache and he has been admitted. He has developed sepsis with tachypnea and respiratory distress. The brain CT had been performed on October 29, which showed stable postoperative changes and subcentimeter hyperdense focus in left anterior frontal parafalcine location. Some opacification of mastoid air cells. A repeat CT was done today, which demonstrated enlargement of third and fourth ventricles compared with prior exam. Raising the possibility of hydrocephalus. The patient had a lumbar drain placed. He is getting ready to be intubated by Dr. Guardado after following bronchoscopy and now we have numerous positive cultures from blood samples from the scalp drainage and from spinal fluid as well. The organism yet to be identified. The patient is obtunded. He has a right-sided gaze deviation. According to the family, he has had no seizure activity. No evidence of aspiration. No genitourinary symptoms. No diarrhea. PAST MEDICAL HISTORY: Includes previous pneumonia a few years ago with by the description what appears to be empyema, which required surgical intervention and now the recently diagnosed meningioma with resection by Dr. Mckeon. Also history of hypertension. ALLERGIES: NEGATIVE. MEDICATIONS: 1. Acetaminophen IV. 2. Lotrel. 3. Lipitor. 4. Cefazolin. 5. Cefepime. 6. Decadron. 7. Fentanyl. 8. Meropenem. 9. Vancomycin. SOCIAL HISTORY: Drinks once a month approximately, former smoker. , [place] area. FAMILY HISTORY: Noncontributory. PHYSICAL EXAMINATION: VITAL SIGNS: T-max 100.5, BP 140/80, pulse 105, respirations 32, O2 saturation 100. SKIN: Shows the craniectomy site with some drainage. He has a lumbar drain in place now and peripheral IV access and a Valdez catheter. The I's and O's have been negative for the past 24 hours. HEENT: His pupils are 3 mm, not very reactive. He has a right-sided gaze preference. No nystagmus. I could not get him to open his teeth for me to observe his oral cavity. NECK: His neck is stiff. LUNGS: Symmetric air entry with coarse rhonchi and crackles bilaterally, pretty much over the entire right and left lung kwan. HEART: S1 and S2 with tachycardia without obvious murmurs. ABDOMEN: Not distended. No ascites. No bladder distention or organomegaly noted. No guarding. GENITAL: Normal. EXTREMITIES: Pulses are 1+ in dorsalis pedis. Plantar responses are downgoing with no clonus. NEUROLOGIC: He is obtunded and does not interact with the examiner. LABORATORY DATA: White cell count is up from 20,000 to 29,000, hemoglobin 14, and platelets 248 with 82% neutrophils, 11% bands. Sodium 128, creatinine 0.69, calcium 9.5, bilirubin 0.8, AST 30, ALT 68, alkaline phosphatase 81, albumin 4.0, globulin 3.6. Last urinalysis is from October 26 and fairly unremarkable. The microbiology as noted before. The gram-negative rods in 2 sets of blood cultures scalp exudate and spinal fluid yet to be identified and susceptibility tested. The Verigene test was not able to give us further information. The chest x-ray with right-sided central vascular catheter. No acute pulmonary findings. ASSESSMENT AND PLAN: Posterior fossa meningioma, status post resection, now with evidence of infection at the operative site, possible CSF leak, with bacteremia and meningitis. A gram-negative antonio has been identified. The patient will continue on broad- spectrum coverage with vancomycin, meropenem until the final identification of the organism. The patient has lumbar drain and will be intubated. He is not requiring pressors at this time. The typical organisms associated with a sort of scenario include E. coli, Klebsiella, Pseudomonas, Acinetobacter, and so on. Meropenem has a broad coverage for those gram-negative rods sometimes with one can see resistance towards meropenem among Pseudomonas and Acinetobacter. Therefore, we will add quinolone , discontinue cefepime since there is a lot of overlap and discontinue cefazolin at this point in time. The possibility of an epidural or subdural abscess is something to be considered. Job ID: [id number] [facility]
[2018-10-31] MEDS: Meropenem 2 GM, Admixture Fee 1 EACH in Sodium Chloride 0.9% 100 ML IVPB SCH (18:38)
[2018-10-31] MEDS ORDERED: Acetaminophen 650 MG Suppository PR PRN (20:00)
[2018-10-31] MEDS: Atorvastatin Calcium 20 MG TAB PO SCH (20:11)
--- NOTE | 2018-10-31 23:05 | PRG ---
DATE OF SERVICE: 10/31/2018 SUBJECTIVE: The patient is seen and examined now and intubated. Noted with the following vital signs, OBJECTIVE: VITAL SIGNS: Afebrile with temperature 99.3, pulse 114, blood pressure 150/81, respiratory rate of 32, O2 saturation of 97%. HEENT: Remarkable for endotracheal tube in place. CARDIOVASCULAR SYSTEM: First and second heart sounds were heard. RESPIRATORY SYSTEM: Clear to auscultation. DIGESTIVE SYSTEM: Reveal a benign abdomen. EXTREMITIES: No peripheral edema. SKIN EXAMINATION: No new gross rash. LYMPHATICS: No peripheral lymphadenopathy. IMPRESSION: 1. 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 2. Cardiopulmonary failure, on vent. 3. Morbid obesity. PLAN: 1. Hypertonic saline has already been discontinued, therefore, we will discontinue frequent sodium check. 2. Sodium level to be checked in the morning. 3. If hyponatremia begins to manifest significantly tomorrow, we will place recommendation for anti-ADH medication. 4. Further management to be dependent on the clinical course. Job ID: [id number]
[2018-11-01] MEDS: Dexamethasone 4 mg/ml Vial SLOW IVP SCH ×4 (00:04→17:09)
--- NOTE | 2018-11-01 00:12 | PRG ---
DATE OF SERVICE: 10/30/2018 Mr. Tate is a 63-year-old, who was admitted yesterday via direct admission from clinic by Julius Smith, physician campus administrative assistant for incisional drainage and headaches from a left suboccipital approach craniectomy and meningioma resection. CT scan was performed yesterday revealed stable-appearing exam consistent with inpatient exam from 6 days ago. There is edema within the left cerebellar hemisphere around the area of excision and mild fluid collection external to the plate over the bone defect. No obvious signs of hemorrhage. No obvious signs of diogo hydrocephalus. Ventricular system appears normal in comparison to prior examination. Overnight , he had considerable difficulty with pain control, and ultimately, a [employer] PERSON was ordered and set up for the patient. He has been using that with better success, and his pain has relieved, now regionally localized to his lumbar. He has not voided since roughly 11 o'clock yesterday evening. We will go ahead and bladder scan to make sure that he is not retaining. Unfortunately, his sodium, where it had risen from 124 to 126 overnight, has now dropped back down to 123. This is pending result from a draw this morning at 0713, so will see if this is correcting, if it is not, we will make further adjustment to his fluids. Otherwise, labs appear normal, other than glucose of 194, mild sliding scale has been initiated with Accu-Cheks at the bedside, preformed before meals and at bedtime. We will potentially need to place a lumbar drain given the continuous CSF drainage from the incision. He also does have areas of purulent-appearing material in the central aspect of the incision in two separate places with mild erythema. I will swab this and send for cultures. We will discuss with Dr. Weir and move forward. Job ID: [id number] [facility]
[2018-11-01] MEDS: Propofol 1,000 MG/100 ML VIAL IV PRN ×3 (02:03→16:43)
[2018-11-01] MEDS: Meropenem 2 GM, Admixture Fee 1 EACH in Sodium Chloride 0.9% 100 ML IVPB SCH ×2 (02:03→09:02)
[2018-11-01 06:03] LABS: Anion Gap 13 mmol/L (10-20); BUN (Urea Nitrogen) 13 mg/dL (8.4-25.7); Calc. Creatinine Clearance 157 mL/min (70-130); Carbon Dioxide 22 mmol/L (23-31); Chloride 97 mmol/L (98-107); Estimated GFR-MDRD Greater than 90; Glucose 218 mg/dL (80-115); Potassium 3.5 mmol/L (3.5-5.1); Sodium 128 mmol/L (136-145)
[2018-11-01] MEDS: HumaLOG 300 UNITS/3 ML VIAL SC PRN ×4 (06:22→22:27)
[2018-11-01 06:39] LABS: Band 1 % (5-11); Hemoglobin 13.8 g/dL (14.0-18.0); MDiff Complete? YES; Mean Corpuscular HGB CONC 32.4 g/dL (32.0-36.0); Mean Corpuscular Hemoglobin 29.5 pg (27.0-31.0); Mean Platelet Volume 7.3 fL (7.4-10.4); Monocytes 1 % (0-10); Neutrophil 98 % (42-75); Platelet Count 207 thou/uL (130-400); Platelet Morphology Comment Appears Adequate; RBC Distribution Width 11.7 % (11.5-14.5); RBC Morphology Normal; Red Blood Cell (RBC) Count 4.69 mill/uL (4.70-6.10); White Blood Cell (WBC) Count 20.6 thou/uL (4.8-10.8)
[2018-11-01 06:58] LABS: Actual Bicarbonate (HCO3a) 21.2 mEq/L (22-28); Base Excess (BEa) -1.2 mEq/L (-2.0 to +3.0); CO2 Tension 29.5 mmHg (35.0-45.0); Calcium, Ionized 1.29 mmol/L (1.12-1.30); Carboxyhemoglobin (COHb) 0.8 gm% (0.0-3.0); Hemoglobin (Hb) 13.9 g/dL (14.0-18.0); O2 Tension (PaO2) 222.4 mmHg (> 80.0); Potassium - ABG Lab 3.46 mmol/L (3.70-5.30); Puncture Site RR; pH, Arterial 7.48 (7.35-7.45)
[2018-11-01 06:59] LABS: ALV-art Gradient 97.225 (0-20)
--- NOTE | 2018-11-01 07:14 | CON ---
DATE OF CONSULTATION: REASON FOR CONSULTATION: Hyponatremia. IMPRESSION: 1. Hyponatremia, very symptomatic in the context of syndrome of inappropriate antidiuretic hormone secretion given the urine chemistry. 2. Status post recent rectosigmoid meningioma resection. 3. Fever break outs, possible central fever versus infectious process. PLAN: 1. IV Tylenol at least to break the fever as patient seems to be having seizure, which may be related to fever versus symptomatic hyponatremia, though less likely to have seizure at this level of hyponatremia but in any case, should be treated as such. 2. Hypertonic saline as the urine osmolality of [address] above the osmolality of 1.5% saline. We will use hypertonic saline of 3%. 3. Very close monitoring of the sodium level every 2 hours and adjustments to be made accordingly. 4. We will allow sodium to rise a couple of points, at which point, decision will be taken to discontinue the hypertonic saline. If need be, anti-Abh could be used going forward to manage the hyponatremia. HISTORY OF PRESENT ILLNESS: A 63-year-old gentleman, who recently had rectosigmoid resection of meningioma, has had some complicated postop course, especially as it revolves around pain, who while on the floor seems to be very symptomatic with mental status change and what appeared to look like seizure. Sodium has drifted down from 135 to 125, and has been at 1.5 saline with little or no change in the level of sodium. As a result of this, decision has been taken to involve Renal in the management of this case. The patient is being transferred to ICU to initiate hypertonic saline. PAST MEDICAL HISTORY: Significant for recent meningioma resection, hypertension, and dyslipidemia. MEDICATIONS: Reviewed and as documented on [facility]. ALLERGIES: NO KNOWN DRUG ALLERGIES. SOCIAL HISTORY: No alcohol. No tobacco. No illicit drug use. FAMILY HISTORY: Not significantly related to present illness. REVIEW OF SYSTEMS: Could not be obtained given the clinical status of this patient. PHYSICAL EXAMINATION: GENERAL: On examination, the patient was found to be shivering continuously and with eyes rolled, simulate more of a seizure, though patient was still able to interact while undergoing this clinical condition. VITAL SIGNS: Blood pressure , heart rate of 98, respiratory rate of 30, O2 saturation of 99%, and temperature of 103 maximum. HEENT: Unremarkable. CARDIOVASCULAR: First and second heart sounds were heard. RESPIRATORY: Clear to auscultation. DIGESTIVE: Revealed a benign abdomen. EXTREMITIES: No peripheral edema. SKIN: No new gross rash. LYMPHATICS: No peripheral lymphadenopathy. NEUROLOGIC: Limited, but no lateralizing sign. SUMMARY: A 63-year-old gentleman with recent rectosigmoid resection of meningioma with now experiencing worsening hyponatremia. Thank you for this consultation. We will follow with you. Job ID: [id number]
[2018-11-01] MEDS: Labetalol HCl 100 MG/20 ML VIAL SLOW IVP PRN (07:33)
[2018-11-01] MEDS: Vancomycin HCl 1.5 GM in Sodium Chloride 0.9% 250 ML 300 ML IVPB SCH ×2 (07:36→20:30)
--- NOTE | 2018-11-01 07:45 | PRG ---
DATE OF SERVICE: 11/01/2018 Mr. Tate is in the ICU. He has been in the ICU now since Thursday and unfortunately, his clinical course continues to worsen. He is not in critical condition, intubated. Dr. Weir did place an EVD yesterday, which continues to drain turbid CSF early on the rate of 14 was average per hour, now with roughly 4 to 5 per hour and at times it does not drain at all, but is still pulsatile in the tubing. He is heavily sedated on Diprivan when I am in the room this morning, so my exam is limited. According to nursing staff, he follows commands intermittently. Pupils are equally round and reactive to light. He does maintain a corneal gag and cough reflex. He is on multiple antibiotic therapy for gram-negative antonio sepsis. Glucose this morning is 218. We will change sliding scale to aggressive. We will try to better treat this and we will continue to follow. Job ID: [id number]
--- NOTE | 2018-11-01 08:10 | OP ---
DATE OF PROCEDURE: 10/31/2018 SUBJECTIVE Progressive respiratory failure, breathing 40 times a minute. Copious amounts of dirty brown secretions arising from his trumpet. OBJECTIVE: VITAL SIGNS: Pulse 111, blood pressure 118/80. GENERAL: Agitated. CHEST: Extensive rhonchi. CARDIAC: Sinus tach. ABDOMEN: Soft. Lumbar drain was inserted. Apparently, he has gram-negative rods suggestive of meningitis. Because of progressive respiratory failure, I spoke to his . He needs to be intubated. #8 tube was placed over the bronchoscope. Using bite block, endotracheal tube was passed where the vocal cords above the taco. There was copious sounds of pus coming out of his endotracheal tube once it was placed in. Cuff was inflated. He was bagged and adapter was placed and bilateral bronchial lavages were performed because of his extensive tracheobronchitis. Right lung initial visualization showed copious pus. No endobronchial disease. Right upper, right middle, right lower lobe visualized, lavaged until clear. Left lung inspected thereafter also had a moderate amount of pus which was suction lavaged until clear. No evidence of any obstruction or blood was seen in the left lung. Washings being sent for Gram stain and C and S. The patient has tolerated the procedure well, is connected to a volume cycle respirator. Please note this intubation along with bronchoscopy and lavage. Job ID: [id number]
[2018-11-01] MEDS: Metoprolol Tartrate 50 MG TAB PO SCH ×2 (08:39→20:30)
[2018-11-01] MEDS: Amlodipine 10 MG TAB PO SCH (08:39)
[2018-11-01] MEDS: Polyethylene Glycol 3350 17 GM Packet PO SCH ×2 (08:39→20:30)
[2018-11-01] MEDS: Pantoprazole 40 MG VIAL IVP SCH (08:40)
--- NOTE | 2018-11-01 08:45 | PRG ---
DATE OF SERVICE: 11/01/2018 SUBJECTIVE: This morning Diprivan was turned off. He is little bit more responsive. OBJECTIVE: VITAL SIGNS: Blood pressure is still elevated 150/90, pulse 103. His temperature 99. Respiratory rate 18. I's and O's have been good 2406 in and 144 out. CHEST: Decreased breath sounds. No wheezing. CARDIAC: Normal S1 and S2. No gallops. ABDOMEN: No masses. LABORATORY DATA: White count 20,000, H and H unremarkable. His lytes are normal. His sodium 128. His scalp wound is growing Serratia. Blood cultures are still pending. IMPRESSION: 1. Gram-negative sepsis. 2. Infected Cerebrospinal fluid. 3. Status post craniotomy. 4. Hyponatremia. 5. Alcohol abuse and tobacco abuse. PLAN: 1. Continue broad-spectrum antibiotics as outlined by Infectious Disease. 2. Meropenem and Cipro. 3. Vancomycin. 4. Decadron. 5. PT nutrition. One-half hour of critical time. Job ID: [id number]
--- NOTE | 2018-11-01 08:50 | RAD ---
PORTABLE CHEST: HISTORY: CCU followup. COMPARISON: 10/31/2018. FINDINGS: The lungs appear clear. No infiltrate. ET tube has been placed with tip at taco. An NG tube is i n place. A central line overlies the right atrium. Lung kwan appear clear and unchanged. No inte rval change when compared to 10/31/2018. POS: [facility]
[2018-11-01] MEDS: cefTRIAXone\\ROCEPHIN 2 GM in Sodium Chloride 0.9% 100 ML IVPB SCH (13:05)
--- NOTE | 2018-11-01 16:16 | PRG ---
DATE OF SERVICE: 11/01/2018 Mr. Tate remains in the ICU. He is now intubated. His ventriculostomy drain is open at 10 cm of water and continues to drain. It continues to drain turbid fluid, although it is clear today as compared to yesterday. His blood cultures and spinal fluid cultures both came back as Serratia marcescens. Sensitivities are also back. He is currently on antibiotics for his septicemia as well as meningitis. Upon the time of my visitation today, he was briefly off the sedation. He would open his eyes to voice. He moved all 4 extremities to either stimulation or at times purposefully. He did not follow commands. His neurologic exam as compared to yesterday is incrementally improved. His current sodium level was 128. He had a low-grade fever of 99 at the time of my last check. I will defer to Pulmonary/Critical Care colleagues with respect to appropriate timing of extubation. We will continue with maintenance of the ventriculostomy with periodic sampling of spinal fluid. We will continue with broad-spectrum antibiotics per our Infectious Disease colleagues. We will continue with appropriate electrolyte management per Critical Care and Nephrology. Mr. Tate is in the ICU in critical condition with septicemia as well as meningitis. I had a discussion again with the family today to update them on all the above findings. Job ID: [id number]
--- NOTE | 2018-11-01 16:16 | PRG ---
DATE OF SERVICE: 11/01/2018 SUBJECTIVE: Mr. Tate appears much more restful, of course, is sedated at this time. According to the nurse, he has been responding on sedation vacations, although it is not clear that he truly follows commands. Family members believe fairly he does. OBJECTIVE: VITAL SIGNS: His T-max is 99.1 to 100.5 yesterday, blood pressure 140/91, heart rate 111, O2 saturations 99% with 40 and 5 of PEEP. HEENT: His ocular movements are not testable at this time. Pupils are round and miotic. LUNGS: Symmetric air entry. The previously noted crackles and wheezes have resolved. HEART: S1 and S2. Regular rate. ABDOMEN: Soft, not distended or tender. No ascites. No bladder distention. EXTREMITIES: He seems to move all extremities. LABORATORY DATA: White cell count 20.6, hemoglobin 13, platelets 207, 98% neutrophils. Sodium 128, creatinine 0.74. Microbiology with Serratia marcescens, which has a broad susceptibility profile. The patient still has a lumbar drain. The CSF has cleared significantly. There is a chest x-ray from today with clear lungs, no infiltrate. ASSESSMENT AND DISCUSSION: Posterior fossa meningioma with resection, evidence of postoperative infection at the operative site, bacteremia and meningitis due to Serratia marcescens. We will switch the patient to Rocephin 2 g q.12 hours, discontinue remainder of antimicrobials. Cerebrospinal fluid leak is likely in this type of surgical complication. Hopefully, the lumbar drain will be enough to fix it. Other sites of involvement are not apparent at this point in time. Job ID: [id number]
--- NOTE | 2018-11-01 19:36 | PRG ---
DATE OF SERVICE: 11/01/2018 OBJECTIVE: VITAL SIGNS: The patient is noted with the following vital signs; blood pressure 131/89, respiratory rate of 23, pulse of 109, and O2 saturations 100%. HEENT: Unremarkable. Moist oral mucosa is CARDIOVASCULAR: First and second heart sounds were heard. RESPIRATORY: Revealed sounds. DIGESTIVE: Reveal obese abdomen. EXTREMITIES: Showed no peripheral edema. LABORATORY INVESTIGATION: Showed white count of 20,000, hemoglobin 13.8. Sodium remained at 128. IMPRESSION: 1. Hyponatremia in the context of syndrome of inappropriate antidiuretic hormone secretion. 2. Cardiopulmonary failure, on life support. PLAN: 1. We will continue with current regimen. No more need for hypertonic saline. 2. If the patient's sodium begin to drift downwards, we will block the ADH with anti ADH medication. 3. Further management to be dependent on the clinical course. Job ID: [id number]
[2018-11-01] MEDS: Atorvastatin Calcium 20 MG TAB PO SCH (20:30)
[2018-11-01] MEDS: Morphine 4 MG/ML VIAL SLOW IVP PRN (21:05)
[2018-11-02] MEDS: Dexamethasone 4 mg/ml Vial SLOW IVP SCH ×4 (00:12→17:46)
[2018-11-02] MEDS: cefTRIAXone\\ROCEPHIN 2 GM in Sodium Chloride 0.9% 100 ML IVPB SCH ×2 (00:13→13:26)
[2018-11-02] MEDS: Propofol 1,000 MG/100 ML VIAL IV PRN (00:17)
[2018-11-02 04:44] LABS: #Lymphocytes 0.4 thou/uL (1.20-3.40); #Monocytes 0.3 thou/uL (0.11-0.59); #Neutrophils 11.2 thou/uL (1.40-6.50); %Basophils 0.1 % (0.0-1.0); %Eosinophils 0.1 % (0.0-10.0); %Lymphocytes 3.1 % (21.0-51.0); %Monocytes 2.6 % (0.0-10.0); %Neutrophils 94.1 % (42.0-75.0); Hemoglobin 12.4 g/dL (14.0-18.0); Mean Corpuscular HGB CONC 34.1 g/dL (32.0-36.0); Mean Corpuscular Hemoglobin 30.6 pg (27.0-31.0); Mean Corpuscular Volume 89.7 fL (78.0-98.0); Mean Platelet Volume 7.9 fL (7.4-10.4); Platelet Count 189 thou/uL (130-400); RBC Distribution Width 11.6 % (11.5-14.5); Red Blood Cell (RBC) Count 4.07 mill/uL (4.70-6.10); White Blood Cell (WBC) Count 11.9 thou/uL (4.8-10.8)
[2018-11-02] MEDS: HumaLOG 300 UNITS/3 ML VIAL SC PRN ×4 (04:54→22:15)
[2018-11-02 05:02] LABS: Anion Gap 11 mmol/L (10-20); BUN (Urea Nitrogen) 21 mg/dL (8.4-25.7); Calc. Creatinine Clearance 152 mL/min (70-130); Calcium 9.3 mg/dL (7.8-10.44); Carbon Dioxide 27 mmol/L (23-31); Chloride 99 mmol/L (98-107); Estimated GFR-MDRD Greater than 90; Glucose 224 mg/dL (80-115); Potassium 3.8 mmol/L (3.5-5.1); Sodium 133 mmol/L (136-145)
[2018-11-02 06:56] LABS: Actual Bicarbonate (HCO3a) 26.4 mEq/L (22-28); Base Excess (BEa) 2.7 mEq/L (-2.0 to +3.0); CO2 Tension 37.7 mmHg (35.0-45.0); Calcium, Ionized 1.25 mmol/L (1.12-1.30); Carboxyhemoglobin (COHb) 0.8 gm% (0.0-3.0); Hemoglobin (Hb) 13.3 g/dL (14.0-18.0); O2 Tension (PaO2) 190.1 mmHg (> 80.0); Potassium - ABG Lab 3.78 mmol/L (3.70-5.30); pH, Arterial 7.46 (7.35-7.45)
[2018-11-02 06:57] LABS: Puncture Site RB
[2018-11-02 06:58] LABS: ALV-art Gradient 47.975 (0-20)
--- NOTE | 2018-11-02 08:42 | PRG ---
DATE OF SERVICE: 11/02/2018 SUBJECTIVE: This morning, he remains intubated on the vent, mildly sedated. OBJECTIVE: VITAL SIGNS: Blood pressure 157/95, sats 100%, respirations 18, he is afebrile. GENERAL: Not moving much of his left side, just his right side. CHEST: Decreased breath sounds. Minimal rhonchi. CARDIAC: Normal S1 and S2. No gallop. ABDOMEN: Soft. LABORATORY DATA: White count 11,000, H and H of 12 and 36, and platelet count is normal. PO2 is 190, pCO2 of 37, pH 7.46 at a rate of 10, 40%. Lytes are normal. Sodium 133. ASSESSMENT: 1. Serratia sepsis, meningitis. 2. Hyponatremia, resolved. 3. Respiratory failure, status post craniotomy. 4. Hypertension. PLAN: He is not weanable until he is neurologically much improved. Continue nutrition, PT, supportive care. This is a one-half hour of critical care time. Job ID: [id number]
--- NOTE | 2018-11-02 09:05 | RAD ---
SEMI UPRIGHT PORTABLE CHEST ONE VIEW: History: Respiratory insufficiency. Comparison: 11-01-18 FINDINGS: NG tube, endotracheal, tube and right central line in place. Increased linear and interstitial markin gs bilaterally, stable. Some left hemidiaphragm elevation and blunting of the left costophrenic angle , stable. IMPRESSION: Scattered stable pleural and parenchymal changes. No significant new process. POS: [facility]
[2018-11-02] MEDS: Labetalol HCl 100 MG/20 ML VIAL SLOW IVP PRN ×2 (09:06→21:05)
[2018-11-02 09:08] LABS: Sodium 133 mmol/L (136-145)
[2018-11-02] MEDS: Pantoprazole 40 MG VIAL IVP SCH (09:16)
[2018-11-02] MEDS: Amlodipine 10 MG TAB PO SCH (09:16)
[2018-11-02] MEDS: Metoprolol Tartrate 50 MG TAB PO SCH ×2 (09:16→20:36)
[2018-11-02] MEDS: Polyethylene Glycol 3350 17 GM Packet PO SCH (09:17)
[2018-11-02] MEDS ORDERED: Magnesium Citrate 300 ML BOT PER TUBE SCH (11:00)
[2018-11-02] MEDS: hydrALAZINE 20 MG/ML VIAL SLOW IVP PRN (13:03)
[2018-11-02] MEDS: Vancomycin HCl 1.5 GM in Sodium Chloride 0.9% 250 ML 300 ML IVPB SCH (13:57)
--- NOTE | 2018-11-02 15:52 | PRG ---
DATE OF SERVICE: 11/02/2018 SUBJECTIVE: His eyes are open, but he does not establish eye contact. It is not clear, if he really truly follows commands. EEG has been ordered. OBJECTIVE: HEENT: His pupils are about 2 mm and reactive, sluggishly so, seems to have a right gaze preference, but no nystagmus. LUNGS: Symmetric clear breath sounds. HEART: S1, S2 regular rate. ABDOMEN: Soft. Not distended. LABORATORY DATA: White cell count is down to 11.9, hemoglobin 12.4, platelets 189. Sodium 133, creatinine 0.68. ASSESSMENT AND DISCUSSION: Posterior fossa meningioma with resection, evidence of postoperative infection with bacteremia, meningitis, and Serratia marcescens. The patient has had some hydrocephalus and has a ventriculostomy placed percutaneous. CSF has improved and its characteristic is much clearer now. CSF leak was considered possible. There is obvious clinical improvement at this point in time. We will continue Rocephin for a total of 2 weeks. Eventual removal of the ventriculostomy once the CSF problems are resolved. Job ID: [id number]
--- NOTE | 2018-11-02 19:57 | PRG ---
DATE OF SERVICE: 11/02/2018 SUBJECTIVE: The patient is seen and examined in ICU. Noted with the following vital signs. OBJECTIVE: VITAL SIGNS: Blood pressure 149/84 and respiratory rate of 19. HEENT: Remarkable for endotracheal tube in place. CARDIOVASCULAR SYSTEM: First and second heart sounds were heard. RESPIRATORY SYSTEM: Revealed ventilator sounds. DIGESTIVE SYSTEM: Revealed a benign abdomen. EXTREMITIES: No peripheral edema. SKIN: No new gross rash. LABORATORY INVESTIGATIONS: Showed a sodium of 133. IMPRESSION: 1. Hyponatremia in the context of syndrome of inappropriate antidiuretic hormone secretion much improved, status post hypertonic saline and ventriculostomy. 2. Cardiopulmonary failure, on life support. PLAN: 1. We will continue current supportive measures. 2. Normal indication for antidiuretic hormone treatment. Job ID: [id number]
[2018-11-02] MEDS: Atorvastatin Calcium 20 MG TAB PO SCH (20:36)
[2018-11-03] MEDS: cefTRIAXone\\ROCEPHIN 2 GM in Sodium Chloride 0.9% 100 ML IVPB SCH ×2 (00:28→13:01)
[2018-11-03] MEDS: Dexamethasone 4 mg/ml Vial SLOW IVP SCH ×5 (00:28→23:23)
--- NOTE | 2018-11-03 03:23 | PRG ---
DATE OF SERVICE: 11/02/2018 TIME OF ENCOUNTER: 0730. SUBJECTIVE: Mr. Tate this morning saw me in the ICU. He is minimally responsive, but now has been off sedation for at least the last 8 to 10 hours. He does intermittently follow commands according to nursing staff, showing the thumbs up, and sometimes squeezing his right hand. He will open his eyes spontaneously, but does not seem to track nor opens them to command. Blood pressure upon standing, mildly hypertensive in the 150s to 160s. Heart rate is tachycardic in the low 100s. His fevers have reduced considerably. Sodium is up at 133 as of 4 o'clock this morning. He had repeat now to make sure they are not coming up too quickly, although it seems like he is starting to correct on his own without any other intervention. CSF has also started to clear up some and lose some of its turbidity. Neurosurgical no additional intervention at this time. We will continue to watch closely. His condition remains great. We will continue to track his progress on a daily basis. Job ID: [id number]
[2018-11-03] MEDS: HumaLOG 300 UNITS/3 ML VIAL SC PRN ×4 (05:13→22:07)
[2018-11-03 05:19] LABS: Hemoglobin 12.9 g/dL (14.0-18.0); Hypochromia SLIGHT = 6-15 cells (100X) (0-5/hpf); Lymphocytes 4 % (21-51); MDiff Complete? YES; Mean Corpuscular HGB CONC 32.8 g/dL (32.0-36.0); Mean Corpuscular Hemoglobin 29.6 pg (27.0-31.0); Mean Corpuscular Volume 90.1 fL (78.0-98.0); Mean Platelet Volume 7.5 fL (7.4-10.4); Monocytes 3 % (0-10); Neutrophil 93 % (42-75); Platelet Count 218 thou/uL (130-400); Platelet Morphology Comment Appears Adequate; RBC Distribution Width 11.9 % (11.5-14.5); Red Blood Cell (RBC) Count 4.35 mill/uL (4.70-6.10); White Blood Cell (WBC) Count 12.7 thou/uL (4.8-10.8)
[2018-11-03 05:21] LABS: Anion Gap 12 mmol/L (10-20); BUN (Urea Nitrogen) 24 mg/dL (8.4-25.7); Calc. Creatinine Clearance 148 mL/min (70-130); Calcium 9.2 mg/dL (7.8-10.44); Carbon Dioxide 29 mmol/L (23-31); Chloride 97 mmol/L (98-107); Estimated GFR-MDRD Greater than 90; Glucose 216 mg/dL (80-115); Potassium 3.8 mmol/L (3.5-5.1); Sodium 134 mmol/L (136-145)
[2018-11-03 07:22] LABS: Actual Bicarbonate (HCO3a) 27.9 mEq/L (22-28); Analyzer IN Cardio OR; Base Excess (BEa) 5.3 mEq/L (-2.0 to +3.0); CO2 Tension 34.2 mmHg (35.0-45.0); Calcium, Ionized 1.19 mmol/L (1.12-1.30); Carboxyhemoglobin (COHb) 0.9 gm% (0.0-3.0); Hemoglobin (Hb) 13.4 g/dL (14.0-18.0); O2 Tension (PaO2) 106.3 mmHg (> 80.0); pH, Arterial 7.53 (7.35-7.45)
[2018-11-03 07:23] LABS: Puncture Site RRA
--- NOTE | 2018-11-03 07:47 | RAD ---
PORTABLE CHEST: HISTORY: Respiratory distress. COMPARISON: Prior day's exam. FINDINGS: Endotracheal and NG tubes are in satisfactory position. Right-sided central line is unchanged. The lungs remain clear of any infiltrative process. IMPRESSION: 1. No acute changes. 2. Stable line placement. POS: [facility]
--- NOTE | 2018-11-03 08:35 | EEG ---
Referring Physician: Abhishek TRAN EEG # [id number] TEST TYPE: ROUTINE PORTABLE INPATIENT REPORT: AN EEG USING THE INTERNATIONAL TEN-TWENTY SYSTEM OF ELECTRODE PLACEMENT WAS PERFORMED. The background activity, at best, is an 8 hertz alpha frequency. The patient appears to be drowsy throughout the study. Theta frequencies were symmetric in distribution over both hemispheres. No sleep transients were seen. No epileptiform features were present. Photic stimulation was unremarkable. IMPRESSION: THIS IS A NORMAL APPEARING DROWSY EEG. Director Compliance: DARREN Support Merchandiser: [email or web address] SHIN
[2018-11-03] MEDS: Metoprolol Tartrate 50 MG TAB PO SCH ×2 (08:44→19:56)
[2018-11-03] MEDS: Amlodipine 10 MG TAB PO SCH (08:44)
[2018-11-03] MEDS: Pantoprazole 40 MG VIAL IVP SCH (08:45)
--- NOTE | 2018-11-03 10:12 | PRG ---
DATE OF SERVICE: 11/03/2018 SUBJECTIVE: This morning, he is supposed to be slightly more responsive. Opens his eyes. No sedation. OBJECTIVE: VITAL SIGNS: Blood pressure 160/91, pulse 119, temperature is 100. moving both sides. CHEST: Decreased breath sounds without any wheezing. CARDIAC: Normal S1 and S2. No gallop. ABDOMEN: No masses. LABORATORY DATA: White count 12,000, H and H are 12 and 39, and platelet count is 218. A pO2 is 106, pCO2 rate of 10. Lytes are normal. IMPRESSION: Serratia sepsis, meningitis, encephalopathy, status post craniotomy. PLAN: Continue nutrition and PT. Avoid sedation. We will follow. One-half hour of critical care time. Job ID: [id number]
[2018-11-03] MEDS: Labetalol HCl 100 MG/20 ML VIAL SLOW IVP PRN (17:04)
[2018-11-03] MEDS: Atorvastatin Calcium 20 MG TAB PO SCH (19:56)
[2018-11-03] MEDS: Morphine 4 MG/ML VIAL SLOW IVP PRN (22:03)
[2018-11-03] MEDS ORDERED: Acetaminophen 1,000 MG in Premix Bag 1 BAG IVPB PRN (22:19)
[2018-11-04] MEDS: cefTRIAXone\\ROCEPHIN 2 GM in Sodium Chloride 0.9% 100 ML IVPB SCH ×2 (02:31→12:50)
[2018-11-04 04:36] LABS: #Lymphocytes 0.5 thou/uL (1.20-3.40); #Monocytes 0.5 thou/uL (0.11-0.59); #Neutrophils 8.3 thou/uL (1.40-6.50); %Eosinophils 0.1 % (0.0-10.0); %Lymphocytes 5.8 % (21.0-51.0); %Neutrophils 89.1 % (42.0-75.0); Hemoglobin 12.4 g/dL (14.0-18.0); Mean Corpuscular HGB CONC 33.5 g/dL (32.0-36.0); Mean Corpuscular Hemoglobin 30.7 pg (27.0-31.0); Mean Corpuscular Volume 91.5 fL (78.0-98.0); Mean Platelet Volume 7.6 fL (7.4-10.4); Platelet Count 192 thou/uL (130-400); RBC Distribution Width 11.8 % (11.5-14.5); Red Blood Cell (RBC) Count 4.03 mill/uL (4.70-6.10); White Blood Cell (WBC) Count 9.3 thou/uL (4.8-10.8)
[2018-11-04] MEDS: HumaLOG 300 UNITS/3 ML VIAL SC PRN (04:48)
[2018-11-04 04:55] LABS: Anion Gap 19 mmol/L (10-20); BUN (Urea Nitrogen) 29 mg/dL (8.4-25.7); Calc. Creatinine Clearance 155 mL/min (70-130); Calcium 8.2 mg/dL (7.8-10.44); Carbon Dioxide 24 mmol/L (23-31); Chloride 101 mmol/L (98-107); Estimated GFR-MDRD Greater than 90; Glucose 213 mg/dL (80-115); Potassium 3.8 mmol/L (3.5-5.1); Sodium 140 mmol/L (136-145)
[2018-11-04] MEDS: Dexamethasone 4 mg/ml Vial SLOW IVP SCH ×4 (05:11→23:42)
[2018-11-04 06:45] LABS: Actual Bicarbonate (HCO3a) 27.2 mEq/L (22-28); Base Excess (BEa) 3.8 mEq/L (-2.0 to +3.0); CO2 Tension 36.7 mmHg (35.0-45.0); Calcium, Ionized 1.23 mmol/L (1.12-1.30); Carboxyhemoglobin (COHb) 1.4 gm% (0.0-3.0); Hemoglobin (Hb) 13.9 g/dL (14.0-18.0); O2 Tension (PaO2) 72.2 mmHg (> 80.0); pH, Arterial 7.49 (7.35-7.45)
[2018-11-04 06:46] LABS: ALV-art Gradient 95.825 (0-20); Puncture Site RRA
[2018-11-04] MEDS ORDERED: DC Sedation Protocol FS ONE (07:56)
--- NOTE | 2018-11-04 08:23 | PRG ---
DATE OF SERVICE: 11/04/2018 SUBJECTIVE: This morning, he appears to be slightly more responsive. He was given some morphine last night, but no sedation. OBJECTIVE: VITAL SIGNS: Pulse 109, blood pressure 130/80, respiratory rate 12, saturations 100%. His I's and O's have been good at 2183 in and 2246 out. CHEST: Minimal rhonchi. CARDIAC: Normal S1, S2. No gallops. ABDOMEN: No masses. LABORATORY DATA: PO2 of 72, pCO2 of7.43_ H and H 12 and 36. His lytes are normal. X-ray still shows no acute infiltrates. Bronchial washings have been negative. EEG does not show any obvious problems. IMPRESSION: 1. Status post craniotomy. 2. Gram-negative Serratia sepsis. 3. Respiratory failure . PLAN: CPAP trial. We will consider weaning and extubation. Otherwise, continue supportive care, PT. Broad-spectrum antibiotics. One-half hour of critical time. Job ID: [id number] MTDD
[2018-11-04] MEDS: Amlodipine 10 MG TAB PO SCH (08:53)
[2018-11-04] MEDS: Metoprolol Tartrate 50 MG TAB PO SCH ×2 (08:54→20:28)
[2018-11-04] MEDS: Pantoprazole 40 MG VIAL IVP SCH (09:25)
--- NOTE | 2018-11-04 11:32 | PRG ---
DATE OF SERVICE: 11/04/2018 SUBJECTIVE: The patient is seen and examined, seems to be doing okay. Noted with the following vital signs. OBJECTIVE: VITAL SIGNS: Afebrile. Blood pressure 157/95, respiratory rate of 29, O2 saturations 100%. T-max of 100.6. HEENT: Remarkable for endotracheal tube in place. CARDIOVASCULAR: First and second heart sounds were heard. RESPIRATORY: Revealed vented sounds. DIGESTIVE: Revealed a benign abdomen. EXTREMITIES: No peripheral edema. SKIN: No new gross rash. IMPRESSION: 1. Hyponatremia in the context of syndrome of inappropriate antidiuretic hormone secretion, which has since improved, status post hypertonic saline and ventriculostomy. 2. Meningitis. PLAN: We will continue current conservative renal supportive measures. Job ID: [id number]
--- NOTE | 2018-11-04 11:37 | PRG ---
DATE OF SERVICE: 11/04/2018 SUBJECTIVE: The patient was seen and examined. No new complaints. Hemodynamically stable. Noted with the following vital signs. OBJECTIVE: VITAL SIGNS: Blood pressure 161/88, pulse of 93. HEENT: Remarkable for endotracheal tube in place. CARDIOVASCULAR: Fist and second heart sounds were heard. RESPIRATORY: Revealed ventilator sounds. DIGESTIVE: Revealed a benign abdomen with positive bowel sounds. LABORATORY INVESTIGATION: Showed a sodium . IMPRESSION: Hyponatremia status post ventriculostomy colostomy and hypertonic saline. PLAN: 1. Continue current renal supportive measures. 2. We will sign off at this point, available to be called back to see if needed. Job ID: [id number]
[2018-11-04 13:05] LABS: Anion Gap 15 mmol/L (10-20); BUN (Urea Nitrogen) 27 mg/dL (8.4-25.7); Calc. Creatinine Clearance 152 mL/min (70-130); Calcium 9.7 mg/dL (7.8-10.44); Carbon Dioxide 25 mmol/L (23-31); Chloride 98 mmol/L (98-107); Estimated GFR-MDRD Greater than 90; Glucose 171 mg/dL (80-115); Potassium 4.5 mmol/L (3.5-5.1); Sodium 133 mmol/L (136-145)
--- NOTE | 2018-11-04 13:25 | PRG ---
DATE OF SERVICE: 11/04/2018 Mr. Tate this morning opens his eyes when spoken to and gives me a thumbs-up and squeezes the hand in bilateral upper extremities and wiggles his toes in bilateral lower extremities. I think he has made significant progression. His sodium this morning at 0400 was 140, which shows significant improvement there. His fluids have been tapered off essentially to just 10 mL flushes with normal saline, so I worry that maybe he is hemo concentrating. We will start normal saline at 60 and recheck his sodium at noon today to make sure that he is still not correcting and does not become either hypernatremic, otherwise, I think he has made significant progress. Job ID: [id number]
[2018-11-04] MEDS: Morphine 4 MG/ML VIAL SLOW IVP PRN (13:56)
[2018-11-04] MEDS: Atorvastatin Calcium 20 MG TAB PO SCH (20:28)
[2018-11-05] MEDS: cefTRIAXone\\ROCEPHIN 2 GM in Sodium Chloride 0.9% 100 ML IVPB SCH ×2 (00:55→13:47)
[2018-11-05 04:08] LABS: #Eosinphils 0.1 thou/uL (0.0-0.7); #Monocytes 0.9 thou/uL (0.11-0.59); #Neutrophils 11.4 thou/uL (1.40-6.50); %Basophils 0.1 % (0.0-1.0); %Eosinophils 0.5 % (0.0-10.0); %Lymphocytes 7.5 % (21.0-51.0); %Monocytes 6.8 % (0.0-10.0); Hemoglobin 14.2 g/dL (14.0-18.0); Mean Corpuscular HGB CONC 33.1 g/dL (32.0-36.0); Mean Corpuscular Hemoglobin 30.2 pg (27.0-31.0); Mean Corpuscular Volume 91.1 fL (78.0-98.0); Mean Platelet Volume 7.6 fL (7.4-10.4); Platelet Count 238 thou/uL (130-400); RBC Distribution Width 11.8 % (11.5-14.5); White Blood Cell (WBC) Count 13.4 thou/uL (4.8-10.8)
[2018-11-05 04:26] LABS: Anion Gap 16 mmol/L (10-20); BUN (Urea Nitrogen) 27 mg/dL (8.4-25.7); Calc. Creatinine Clearance 148 mL/min (70-130); Calcium 9.6 mg/dL (7.8-10.44); Carbon Dioxide 25 mmol/L (23-31); Chloride 98 mmol/L (98-107); Estimated GFR-MDRD Greater than 90; Glucose 177 mg/dL (80-115); Potassium 4.5 mmol/L (3.5-5.1); Sodium 134 mmol/L (136-145)
[2018-11-05] MEDS: Dexamethasone 4 mg/ml Vial SLOW IVP SCH ×4 (05:08→23:12)
[2018-11-05] MEDS ORDERED: chlorproMAZINE HCl 25 MG in Sodium Chloride 0.9% 50 ML IVPB PRN (08:13)
--- NOTE | 2018-11-05 08:26 | PRG ---
DATE OF SERVICE: 11/05/2018 SUBJECTIVE: This morning, he is much more responsive. He was extubated yesterday. OBJECTIVE: VITAL SIGNS: Pulse 113, blood pressure 127/85, saturations 100% on room air. He complained of some pain. He remains afebrile. CHEST: Bilateral rhonchi. CARDIAC: Sinus tach. ABDOMEN: Soft. LABORATORY DATA: White count 32774. Lytes are normal. Sodium is 134. ASSESSMENT: Serratia sepsis, encephalopathy. Hypernatremia, resolved. Status post craniotomy. Ceftriaxone IV for Serratia meningitis sepsis. Speech to see him today regarding nutrition. We feel he is going to need a Dobhoff tube. He is having hiccups this morning, p.r.n. medications for his hiccups. Continue to observe in the ICU. Continue aggressive PT. One half hour critical time. Job ID: [id number]
--- NOTE | 2018-11-05 10:07 | PRG ---
DATE OF SERVICE: 11/05/2018 Mr. Tate is hospital day #7 for admission with SIADH postoperative wound infection and sepsis. He has shown fairly significant improvement over the last 24 to 36 hours. He has been extubated. He was up to a chair yesterday. He awakens to voice and will communicate intermittently. He moves all four extremities to command. He does remain somnolent, however, and inconsistently awake. His EVD remains in place and draining. His 2nd set of cultures continue to grow bacteria. He remains on antibiotics. He will remain in the ICU for several more days with the EVD in place. We will reevaluate CSF cultures beginning part of this next week. Job ID: [id number]
[2018-11-05] MEDS: Amlodipine 10 MG TAB PO SCH (10:14)
[2018-11-05] MEDS: Metoprolol Tartrate 50 MG TAB PO SCH ×2 (10:14→19:55)
[2018-11-05] MEDS: Morphine 2 MG/ML SYRINGE SLOW IVP PRN (11:22)
--- NOTE | 2018-11-05 15:00 | ULT ---
BILATERAL LOWER EXTREMITY VENOUS DOPPLER WITH SPECTRAL ANALYSIS AND COLOR FLOW EVALUATION: Date: 11/05/18 HISTORY: Patient bed-bound and sedentary for 7 days. On ventilator. Increased risk factor for deep venous thro mbosis. TECHNIQUE: Caal scale, color flow, Doppler evaluation, and spectral analysis of the bilateral lower extremity ve nous structures is performed with 2D imaging. The bilateral lower extremity common femoral, superfici al femoral, popliteal, posterior tibial, most proximal greater saphenous, and profunda femoral veins are imaged. FINDINGS: There is normal lumen compressibility, flow, and augmentation in the visualized deep venous structure s of the bilateral lower extremities. IMPRESSION: No evidence of a deep venous thrombosis involving the visualized deep venous structures of bilateral lower extremities. POS: [facility]
--- NOTE | 2018-11-05 15:57 | PRG ---
DATE OF SERVICE: 11/05/2018 SUBJECTIVE: The patient has been extubated. He is a bit obtunded now. Did not establish eye contact. Did not follow commands. Pupils are equally reactive about 2 mm. He seems to have good muscle tone in all extremities and still has a ventriculostomy tube in place and still has a Valdez catheter in place. His white cell count is up to 13.4, hemoglobin 14, platelets 238 with 85% neutrophils. Sodium 134, creatinine 0.7. Repeat cultures from the spinal fluid of Serratia marcescens. No cell count were submitted in the fluid. He is currently on ceftriaxone. ASSESSMENT AND DISCUSSION: Posterior fossa meningioma with resection, postop infection with Serratia marcescens, bacteremia, meningitis with improvement. The patient has been extubated, still obtunded, and still has Serratia in the CSF sample. This could be associated with the ventriculostomy device. Ideally, one would like to remove the foreign body to allow sterilization of the CSF if it would be feasible. I do not know if he is going to require placement of a permanent drainage system with a PUBLIC[employer] WRITER shunt or not. We will ask for the next draw CSF to include cell count and glucose and protein as well. Continue Rocephin. Job ID: [id number]
[2018-11-05] MEDS: Atorvastatin Calcium 20 MG TAB PO SCH (19:55)
[2018-11-05] MEDS: Acetaminophen 650 MG/20.3 ML UDCUP PO PRN (20:23)
[2018-11-06] MEDS: cefTRIAXone\\ROCEPHIN 2 GM in Sodium Chloride 0.9% 100 ML IVPB SCH ×2 (00:01→12:48)
[2018-11-06 04:34] LABS: #Eosinphils 0.1 thou/uL (0.0-0.7); #Lymphocytes 1.1 thou/uL (1.20-3.40); #Monocytes 0.6 thou/uL (0.11-0.59); %Basophils 0.1 % (0.0-1.0); %Eosinophils 0.8 % (0.0-10.0); %Lymphocytes 8.3 % (21.0-51.0); %Monocytes 4.9 % (0.0-10.0); %Neutrophils 85.9 % (42.0-75.0); Hemoglobin 14.4 g/dL (14.0-18.0); Mean Corpuscular HGB CONC 33.7 g/dL (32.0-36.0); Mean Corpuscular Hemoglobin 30.8 pg (27.0-31.0); Mean Corpuscular Volume 91.4 fL (78.0-98.0); Mean Platelet Volume 7.3 fL (7.4-10.4); Platelet Count 235 thou/uL (130-400); RBC Distribution Width 11.7 % (11.5-14.5); Red Blood Cell (RBC) Count 4.67 mill/uL (4.70-6.10); White Blood Cell (WBC) Count 12.8 thou/uL (4.8-10.8)
[2018-11-06 05:04] LABS: Anion Gap 12 mmol/L (10-20); BUN (Urea Nitrogen) 28 mg/dL (8.4-25.7); Calc. Creatinine Clearance 135 mL/min (70-130); Calcium 9.3 mg/dL (7.8-10.44); Carbon Dioxide 28 mmol/L (23-31); Chloride 99 mmol/L (98-107); Estimated GFR-MDRD Greater than 90; Glucose 165 mg/dL (80-115); Potassium 4.3 mmol/L (3.5-5.1); Sodium 135 mmol/L (136-145)
[2018-11-06] MEDS: Dexamethasone 4 mg/ml Vial SLOW IVP SCH ×2 (05:20→12:04)
[2018-11-06] MEDS: Amlodipine 10 MG TAB PO SCH (09:09)
[2018-11-06] MEDS: Metoprolol Tartrate 50 MG TAB PO SCH ×2 (09:09→20:34)
--- NOTE | 2018-11-06 09:40 | PRG ---
DATE OF SERVICE: Mr. Tate this morning is relatively stable neurologically. He awakens to voice, opens his eyes. He answers questions appropriately. Denies any pain or other concerns at the moment. His EVD has started to reduce the drainage over the last 24-48 hours, for now it is putting about 2-[address] Valverde ordered a CSF culture for today, so I will draw 10 mL with sterile technique, sent off to the lab. Otherwise, we will continue this plan which is continued observation in the ICU. Job ID: [id number]
[2018-11-06 09:48] LABS: CSF, Glucose 46 mg/dl (40-70); CSF, Protein 53 mg/dL (15-40)
[2018-11-06 09:54] LABS: CSF Source CSF; Clarity Clear (Clear); RBC Count - Manual 52 /cumm (None Seen); WBC/NonHematics Count - Manual 91 /cumm (0-5)
[2018-11-06 10:11] LABS: Cell Count Non Hematic 5 %; Lymphocytes 6 %; Segmented Neutrophils 89 %
[2018-11-06] MEDS: HumaLOG 300 UNITS/3 ML VIAL SC PRN (12:47)
[2018-11-06] MEDS: Acetaminophen 650 MG/20.3 ML UDCUP PO PRN (15:01)
[2018-11-06] MEDS: Atorvastatin Calcium 20 MG TAB PO SCH (20:34)
--- NOTE | 2018-11-06 21:35 | PRG ---
DATE OF SERVICE: 11/06/2018 SUBJECTIVE: Mr. Tate's hemodynamics remained stable. OBJECTIVE: VITAL SIGNS: He is afebrile. Heart rate 112, blood pressure 139/78. LUNGS: Clear. HEART: Regular rhythm. ABDOMEN: Soft. EXTREMITIES: Without edema. LABORATORY DATA: White count 12.8, hemoglobin 14.4, and platelets 235. Sodium 135, potassium 4.3, chloride 99, bicarb 28, BUN 28, and creatinine 0.7. IMPRESSION: He appears to be stable neurologically. He nodded and answered questions relatively quickly. He had no complaints. He still has an external ventricular drain in place. His CSF was cultured again today. We will continue to follow. He appears to be stable but obviously needs to remain in the critical care unit. Job ID: [id number]
[2018-11-07] MEDS: cefTRIAXone\\ROCEPHIN 2 GM in Sodium Chloride 0.9% 100 ML IVPB SCH (00:32)
[2018-11-07 06:03] LABS: #Eosinphils 0.1 thou/uL (0.0-0.7); #Lymphocytes 1.5 thou/uL (1.20-3.40); #Monocytes 1.1 thou/uL (0.11-0.59); #Neutrophils 13.2 thou/uL (1.40-6.50); %Basophils 0.1 % (0.0-1.0); %Eosinophils 0.8 % (0.0-10.0); %Lymphocytes 9.6 % (21.0-51.0); %Monocytes 6.8 % (0.0-10.0); %Neutrophils 82.7 % (42.0-75.0); Hemoglobin 15.4 g/dL (14.0-18.0); Mean Corpuscular HGB CONC 33.2 g/dL (32.0-36.0); Mean Corpuscular Hemoglobin 30.2 pg (27.0-31.0); Mean Corpuscular Volume 91.1 fL (78.0-98.0); Mean Platelet Volume 7.5 fL (7.4-10.4); Platelet Count 266 thou/uL (130-400); RBC Distribution Width 11.8 % (11.5-14.5); White Blood Cell (WBC) Count 15.9 thou/uL (4.8-10.8)
[2018-11-07 06:25] LABS: Anion Gap 16 mmol/L (10-20); BUN (Urea Nitrogen) 26 mg/dL (8.4-25.7); Calc. Creatinine Clearance 126 mL/min (70-130); Calcium 9.5 mg/dL (7.8-10.44); Carbon Dioxide 26 mmol/L (23-31); Chloride 100 mmol/L (98-107); Estimated GFR-MDRD Greater than 90; Glucose 172 mg/dL (80-115); Potassium 4.6 mmol/L (3.5-5.1); Sodium 137 mmol/L (136-145)
[2018-11-07] MEDS: HumaLOG 300 UNITS/3 ML VIAL SC PRN ×2 (06:29→17:25)
[2018-11-07] MEDS ORDERED: Sodium Chloride 0.9% 1,000 ML IV SCH (09:00)
[2018-11-07] MEDS ORDERED: Sodium Chloride 0.9% 500 ML IV SCH (09:00)
--- NOTE | 2018-11-07 10:26 | PRG ---
DATE OF SERVICE: 11/06/2018 Mr. Tate continues to recover in the ICU. He has tolerated extubation now for 2 days. His ventriculostomy device remains in place. His neurologic exam continues to fluctuate, although in the whole over the past 48 hours, he showed gradual improvement. He does open his eyes to voice. He will periodically follow commands. Per nursing and family, he is able to carry on conversations. His CSF drainage has slowly diminished, although it does remain turbid in color. We have withdrawn another sample for analysis. At some point, we can start testing whether he can tolerate the device clamped. We will order a head CT tomorrow. Job ID: [id number]
[2018-11-07] MEDS: Vancomycin HCl 1.5 GM in Sodium Chloride 0.9% 250 ML 300 ML IVPB SCH ×2 (10:48→23:15)
--- NOTE | 2018-11-07 12:10 | RAD ---
ABDOMEN 1 VIEW: Date: 11/07/18 HISTORY: Dobbhoff tube placement evaluation. FINDINGS: Dobbhoff tube has been placed with the tip in the region of the duodenum. No evidence for other acute process. IMPRESSION: Dobbhoff tube placed with tip in the region of the duodenum. POS: [facility]
[2018-11-07] MEDS: Amlodipine 10 MG TAB PO SCH (12:15)
[2018-11-07] MEDS: Metoprolol Tartrate 50 MG TAB PO SCH ×2 (12:15→20:39)
[2018-11-07] MEDS: Meropenem 2 GM, Admixture Fee 1 EACH in Sodium Chloride 0.9% 100 ML IVPB SCH ×2 (12:45→21:29)
--- NOTE | 2018-11-07 13:10 | PRG ---
DATE OF SERVICE: 11/07/2018 SUBJECTIVE: Mr. Tate has developed purulent drainage from the left-sided craniectomy site wound, which was expressed. Culture submitted. He is a bit sleepy. He keeps his eyes open and follows commands. Has had no diarrhea, just soft stool. Has an NG tube in place, coughing intermittently. OBJECTIVE: VITAL SIGNS: T-max 100.8, blood pressure 130/80, pulse 128, O2 saturation 100, and respiratory rate 17. HEENT: Pupils are about 2 mm and reactive. Conjunctivae normal. Ocular movements are conjugate. No nystagmus. LUNGS: Somewhat diminished breath sounds, few crackles at the bases. HEART: S1 and S2. Regular rate. ABDOMEN: Soft, not distended. EXTREMITIES: He is able to move extremities and will follow commands with some insistence. The left craniectomy site with stitches in place. I could not express any purulent exudate, but previously the nurse was able to. White cell count is up to 15.9, hemoglobin 15, platelets 266. Sodium 137, creatinine 0.78. The repeat spinal fluid culture with gram-negative antonio again retrieved. Culture and Gram stain from the craniectomy site is pending. ASSESSMENT AND DISCUSSION: Posterior fossa meningioma with resection, postop infection with Serratia marcescens with bacteremia, meningitis now with evidence of persistence of Serratia in the spinal fluid as well as purulent drainage from the operative site, local complication with abscess formation, osteomyelitis, epidural abscess need to be considered. We will repeat CT scan of the brain with contrast, switch him to meropenem and vancomycin until we have final cultures from the wound drainage site. Job ID: [id number]
[2018-11-07 13:15] LABS: Anion Gap 14 mmol/L (10-20); BUN (Urea Nitrogen) 23 mg/dL (8.4-25.7); Calc. Creatinine Clearance 143 mL/min (70-130); Calcium 8.6 mg/dL (7.8-10.44); Carbon Dioxide 20 mmol/L (23-31); Chloride 106 mmol/L (98-107); Estimated GFR-MDRD Greater than 90; Glucose 166 mg/dL (80-115); Potassium 4.2 mmol/L (3.5-5.1); Sodium 136 mmol/L (136-145)
[2018-11-07] MEDS: Sodium Chloride 0.9% 1,000 ML IV SCH (14:36)
--- NOTE | 2018-11-07 15:14 | CT ---
BRAIN CT WITH AND WITHOUT IV CONTRAST: Date: 11/07/18 HISTORY: Status post craniotomy, wound site infection left occiput region. COMPARISON: 10/31/18. FINDINGS: Postoperative changes are noted in the left occipital lobe. Right-sided ventriculostomy tube with dec ompression of the ventricles when compared to the prior study. There is a fairly well circumscribed r ing-enhancing fluid collection with a punctate focus of gas in the left posterior fossa at the site o f the craniotomy defect. This measures approximately 1.5 x 3.4 cm intracranially and projects into th e left cerebellar hemisphere. In addition, there is a circumscribed ring-enhancing fluid collection i n the upper left neck musculature adjacent to the craniotomy defect. This measures 2.6 x 3.1 cm. No e vidence for midline shift. There are some patchy low attenuation changes bilaterally, including the l eft basal ganglia, possibly a tiny lacunar infarct. IMPRESSION: Postoperative left occipital craniotomy changes with abnormal opacification of the left mastoid. Some what irregular abnormal wall enhancing collection in the left posterior fossa and extending into the left cerebellar hemisphere from the craniotomy defect. This could certainly possibly represent an abs cess. Ring-enhancing fluid collection in the upp0er left neck just caudal to the craniotomy defect. D ecompression of the ventricles with right ventriculostomy tube in place. POS: [facility]
--- NOTE | 2018-11-07 15:19 | PRG ---
DATE OF SERVICE: 11/07/2018 SUBJECTIVE: Lea's mental status is waxing and waning. He has purulent exudate coming out of his scalp incision. Antibiotics were adjusted today by Dr. Valverde. OBJECTIVE: VITAL SIGNS: Heart rate 104, blood pressure 127/76, and respiratory rate is 18. LUNGS: Clear. HEART: Regular rhythm. ABDOMEN: Soft. EXTREMITIES: Without edema. Dobhoff tube was placed today since his nutritional intake is quite poor. His Dobhoff placement by radiograph is fine. LABORATORY DATA: White count 15.9, hemoglobin 15.4, and platelets 266. Sodium 136, potassium 4.2, chloride 106, bicarbonate 20, BUN 23, and creatinine 0.69. IMPRESSION: Serratia meningitis. He is still growing out gram negatives from his spinal fluid. He may have an infected wound now. His prognosis remains quite guarded. Job ID: [id number]
[2018-11-07] MEDS: Acetaminophen 650 MG/20.3 ML UDCUP PO PRN (16:58)
[2018-11-07] MEDS: Atorvastatin Calcium 20 MG TAB PO SCH (20:39)
[2018-11-08] MEDS: Meropenem 2 GM, Admixture Fee 1 EACH in Sodium Chloride 0.9% 100 ML IVPB SCH ×3 (05:07→21:00)
[2018-11-08] MEDS: Sodium Chloride 0.9% 1,000 ML IV SCH ×2 (05:07→13:07)
[2018-11-08 05:22] LABS: #Eosinphils 0.1 thou/uL (0.0-0.7); #Lymphocytes 1.4 thou/uL (1.20-3.40); #Monocytes 0.7 thou/uL (0.11-0.59); #Neutrophils 11.9 thou/uL (1.40-6.50); %Eosinophils 0.9 % (0.0-10.0); %Lymphocytes 9.8 % (21.0-51.0); %Monocytes 5.1 % (0.0-10.0); %Neutrophils 84.2 % (42.0-75.0); Mean Corpuscular HGB CONC 33.7 g/dL (32.0-36.0); Mean Corpuscular Hemoglobin 31.2 pg (27.0-31.0); Mean Corpuscular Volume 92.8 fL (78.0-98.0); Mean Platelet Volume 7.6 fL (7.4-10.4); Platelet Count 189 thou/uL (130-400); RBC Distribution Width 11.8 % (11.5-14.5); Red Blood Cell (RBC) Count 4.16 mill/uL (4.70-6.10); White Blood Cell (WBC) Count 14.1 thou/uL (4.8-10.8)
[2018-11-08 05:36] LABS: Anion Gap 14 mmol/L (10-20); BUN (Urea Nitrogen) 20 mg/dL (8.4-25.7); Calc. Creatinine Clearance 124 mL/min (70-130); Calcium 8.8 mg/dL (7.8-10.44); Carbon Dioxide 24 mmol/L (23-31); Chloride 105 mmol/L (98-107); Estimated GFR-MDRD Greater than 90; Glucose 141 mg/dL (80-115); Sodium 139 mmol/L (136-145)
[2018-11-08] MEDS ORDERED: Sodium Chloride 0.9% 10 ML ONE (07:00)
[2018-11-08] MEDS ORDERED: Lidocaine 0.5%/Epinephrine 1:200,000 50 ml Vial ONE (07:00)
[2018-11-08] MEDS ORDERED: Thrombin 5000 UNITS/5 ML VIAL ONE (07:00)
[2018-11-08] MEDS ORDERED: Sodium Chloride 0.9% 20 ML ONE (08:38)
--- NOTE | 2018-11-08 09:20 | PRG ---
DATE OF SERVICE: 11/08/2018 SUBJECTIVE: This morning, he opens his eyes. He had a pus draining out of his wound. CT brain showed evidence of collection of a pus pocket in his mastoid, left area. Neurosurgery is going to take him to surgery for drainage purposes. OBJECTIVE: VITAL SIGNS: Otherwise, his saturations are 99% on room air, respirations 27, pulse 115, and blood pressure 99/63. CHEST: Decreased breath sounds. No wheezing. CARDIAC: Normal S1 and S2. No gallops. ABDOMEN: No masses. LABORATORY DATA: Sodium is 136. White count 14,000. IMPRESSION: 1. Status post craniotomy, followed by Serratia gram-negative meningitis and sepsis. 2. Collection of pus pocket on the left mastoid. 3. Respiratory failure/tracheal bronchitis\\_ alcohol abuse. PLAN: Post surgery start nutrition, PT, supportive care. We will follow. Continue broad-spectrum antibiotics as outlined by Infectious Disease. Job ID: [id number] MTDD
[2018-11-08] MEDS ORDERED: Fentanyl 100 MCG/2 ML VIAL ONE (09:23)
--- NOTE | 2018-11-08 09:54 | PRG ---
DATE OF SERVICE: 11/08/2018 Mr. Tate is well known to my team and I just under 3 weeks ago we did a left retro-sigmoid stereotactic craniotomy for anaplastic meningioma resection. We took the tumor all the way to the jugular bulb and sigmoid sinus and skeletonized that region. He does have invasion into the petromastoid air cells and this was known, of course, the plan was to arrange for adjuvant therapy with radiation to the operative region and cranial base. Unfortunately, the patient re-presented with increasing headache and was hydrocephalic. He also had increased craniospinal pain consistent with meningitic findings and drainage from his wound consistent with CSF. We ended up given his neurologic decline while I was away, our team guided by Dr. Weir, placed an external ventricular drain to relieve his intracranial pressure and he was initiated on antibiotics once the blood and CSF cultures confirmed Serratia. He was aggressively treated with antibiotics following an initial period of sepsis and hyponatremia. He began to recover to a degree and while his protein in the CSF is at non-meningitic levels, he continues to have growth in his CSF and now with wound drainage. I have let the family know. I would favor return to the operating room to remove his titanium mesh, the screws, and his fascia melania autologous graft and completely irrigate the wound. I will also lower his EVD drainage to 5 cm of water, which will increase his drainage. His ventricle caliber is down compared to his initial presentation 10 days ago. He continues to be hydrocephalic. Resection cavity is certainly improved from a neoplastic standpoint, but there is contrast enhancement there and extracranial and I am concerned obviously about abscess and persistent infection given all of the above. I feel being aggressive in this regard is the best course of action. His prognosis remains quite guarded. I should note that neurologically, he is somnolent but does attempt to open his eyes and remembers me when he looks at me. He does have diaphragmatic spasms on the left side and has had some difficulty managing his secretions given his I suspect lower cranial nerve irritation on the left due to the infection. I discussed at length returning to the operating room. The family is in complete agreement and understands the purpose. They are appreciative of our care. Goals, indications risks, alternatives, and complications were discussed in detail with the patient's family and they understand again the purpose of return to the operating room. Job ID: [id number]
[2018-11-08] MEDS ORDERED: Midazolam HCl 2 mg/2 ml Vial ONE (11:54)
[2018-11-08] MEDS ORDERED: Vecuronium 10 MG VIAL ONE (12:07)
[2018-11-08] MEDS: Vancomycin HCl 1.5 GM in Sodium Chloride 0.9% 250 ML 300 ML IVPB SCH ×2 (13:02→23:29)
[2018-11-08 13:11] LABS: Actual Bicarbonate (HCO3a) 26.7 mEq/L (22-28); Analyzer IN Cardio OR; Base Excess (BEa) 0.4 mEq/L (-2.0 to +3.0); CO2 Tension 50.3 mmHg (35.0-45.0); Calcium, Ionized 1.17 mmol/L (1.12-1.30); Carboxyhemoglobin (COHb) 0.7 gm% (0.0-3.0); Hemoglobin (Hb) 12.7 g/dL (14.0-18.0); Potassium - ABG Lab 3.72 mmol/L (3.70-5.30); pH, Arterial 7.34 (7.35-7.45)
[2018-11-08] MEDS ORDERED: Propofol BOLUS 1,000 MG/100 ML VIAL IV PRN (13:14)
[2018-11-08] MEDS ORDERED: Lorazepam 2 MG/ML VIAL SLOW IVP PRN (13:14)
[2018-11-08] MEDS ORDERED: Morphine 2 MG/ML SYRINGE SLOW IVP PRN (13:14)
[2018-11-08] MEDS ORDERED: Propofol 1,000 MG/100 ML VIAL IV PRN (13:14)
[2018-11-08] MEDS ORDERED: DISCONTINUE PREVIOUS NARCOTIC PAIN MEDICATIONS AND BENZODIAZEPINES FS SCH (13:14)
[2018-11-08] MEDS ORDERED: Fentanyl BOLUS 250 ML IVPB PRN (13:14)
[2018-11-08] MEDS ORDERED: Propofol 1,000 MG/100 ML VIAL IV ONE (13:20)
[2018-11-08 13:24] LABS: ALV-art Gradient 159.325 (0-20); Puncture Site ALINE
[2018-11-08] MEDS: Metoprolol Tartrate 50 MG TAB PO SCH ×3 (13:33→23:29)
[2018-11-08] MEDS ORDERED: fentaNYL Citrate/PF 2,000 MCG in Sodium Chloride 0.9% 60 ML IV SCH (14:26)
--- NOTE | 2018-11-08 14:43 | RAD ---
FRONTAL RADIOGRPAH CHEST: DATE: 11/08/2018. COMPARISON: 11/03/2018. HISTORY: Intubated patient. FINDINGS: A Dobbhoff tube extends into the upper abdomen, incompletely imaged. There is a linear density in th e right perihilar region and along the course of the minor fissure which may represent a perihilar in filtrate or volume loss. There is an endotracheal tube which terminates at the level of the clavicul ar heads. IMPRESSION: Lines and tubes as above. Increased perihilar density on the right may signify infiltrate or volume loss. Followup to resolution advised. POS: [facility]
[2018-11-08] MEDS: Amlodipine 10 MG TAB PO SCH (14:48)
--- NOTE | 2018-11-08 14:59 | OP ---
DATE OF PROCEDURE: 11/08/2018 SURGEON: Doug Mckeon MD. PHONOGRAPH MECHANIC: Julius Smith PA-C. PREOPERATIVE DIAGNOSIS: Cranial wound drainage. POSTOPERATIVE DIAGNOSIS: Cranial wound drainage. PROCEDURE PERFORMED: Left posterior fossa craniotomy wound exploration with wound washout, culturing, removal of hardware, and all indicated procedures. SPECIMEN: Left posterior fossa superficial wound drainage. ESTIMATED BLOOD LOSS: 50 mL. FINDINGS: Cranial wound drainage. Job ID: [id number]
--- NOTE | 2018-11-08 15:05 | OP ---
DATE OF PROCEDURE: 11/08/2018 A modifier-78 should be added to the surgery as this was an unplanned return to the operating room for a complex draining wound in the left retrosigmoid region, status post anaplastic meningioma resection. DESCRIPTION OF PROCEDURE: After informed consent was obtained from the patient's family, the patient was brought to the OR. Proper patient, pause, and identification were carried out. He was placed in the right lateral decubitus position and a left retrosigmoid wound was identified. Purulent material was expressed. It was clear both on diagnostic and radiologic evaluation. The patient had both the superficial and deep infection affecting his cranial cavity. At this point, we sterilely cleansed, prepared, and draped the region. [place] were removed and extended again. Sterile preparation and draping were performed. After proper patient, pause, and identification, the wound was then opened. Purulent material was identified in the extracranial compartment. Sutures were removed. Cultures were obtained. I then removed the titanium mesh along with a fascia melania graft deep to the fascia melania. Purulent material was also identified and irrigated clean. There was evidence of cerebritis. Hemostasis was maximized. Copious irrigation occurred with 3 L of bacitracin irrigation until we found excellent cleansing of the intracranial compartment. Copious irrigation occurred again and the wound was maximized hemostasis and closed in anatomic layers. The patient was kept intubated and taken to the ICU. Job ID: [id number]
[2018-11-08] MEDS ORDERED: Pancrelipase DR 12000 1 CAP FS PRN (16:00)
[2018-11-08] MEDS ORDERED: Sodium Bicarbonate Tab 325 MG TAB PER TUBE PRN (16:00)
--- NOTE | 2018-11-08 16:19 | HP ---
CHIEF COMPLAINT: Increasing headache with hydrocephalus, status post large retro-sigmoid left-sided meningioma resection. HISTORY OF PRESENT ILLNESS: Mr. Tate is a 63-year-old gentleman who is well known to me. He is approximately a week out from a left-sided retro-sigmoid meningioma resection. Unfortunately, he has developed progressive headache and wound drainage consistent with CSF. He has an elevated white count at 29,000 from earlier this week, although he has been on high-dose steroids given the vasogenic edema associated with his large left anaplastic meningioma in the posterior fossa and skull base. This was oversewn in clinic and the patient is to be admitted to the hospital for lab and radiologic evaluation. He may need a lumbar drain placed and while the patient is neurologically intact, he does appear to have cephalgia and certainly looks worse compared to when he left the hospital 5 days after surgery. IMPRESSION AND PLAN: We plan to admit him to our service and arrange for laboratory and radiologic assessment to help dictate clinical course from there. Job ID: [id number]
[2018-11-08 16:34] LABS: Actual Bicarbonate (HCO3a) 23.6 mEq/L (22-28); Analyzer IN Cardio OR; Base Excess (BEa) 0.8 mEq/L (-2.0 to +3.0); CO2 Tension 32.1 mmHg (35.0-45.0); Calcium, Ionized 1.13 mmol/L (1.12-1.30); Carboxyhemoglobin (COHb) 0.7 gm% (0.0-3.0); Hemoglobin (Hb) 12.3 g/dL (14.0-18.0); O2 Tension (PaO2) 88.6 mmHg (> 80.0); Potassium - ABG Lab 3.42 mmol/L (3.70-5.30); pH, Arterial 7.49 (7.35-7.45)
[2018-11-08 16:39] LABS: ALV-art Gradient 156.475 (0-20); Puncture Site ALINE
[2018-11-08] MEDS: Acetaminophen 650 MG/20.3 ML UDCUP PO PRN (16:54)
[2018-11-08] MEDS: Morphine 2 MG/ML SYRINGE SLOW IVP PRN (16:56)
[2018-11-08] MEDS: HumaLOG 300 UNITS/3 ML VIAL SC PRN (17:58)
[2018-11-08] MEDS: Enoxaparin Sodium 40 MG/0.4 ML SYRINGE SC SCH (20:37)
[2018-11-08] MEDS: Atorvastatin Calcium 20 MG TAB PO SCH (20:37)
[2018-11-08 23:24] LABS: Vancomycin, Trough 8.6 ug/mL
[2018-11-08] MEDS: Vancomycin HCl 1.25 GM in Sodium Chloride 0.9% 250 ML 250 ML IVPB SCH (23:48)
[2018-11-09] MEDS: Labetalol HCl 100 MG/20 ML VIAL SLOW IVP PRN ×6 (01:02→11:03)
[2018-11-09] MEDS: Acetaminophen 650 MG/20.3 ML UDCUP PO PRN ×2 (04:21→17:43)
[2018-11-09] MEDS: HumaLOG 300 UNITS/3 ML VIAL SC PRN (05:21)
[2018-11-09 05:23] LABS: #Eosinphils 0.1 thou/uL (0.0-0.7); #Lymphocytes 0.8 thou/uL (1.20-3.40); #Monocytes 0.4 thou/uL (0.11-0.59); #Neutrophils 9.6 thou/uL (1.40-6.50); %Basophils 0.3 % (0.0-1.0); %Eosinophils 0.8 % (0.0-10.0); %Lymphocytes 7.6 % (21.0-51.0); %Monocytes 3.9 % (0.0-10.0); %Neutrophils 87.4 % (42.0-75.0); Hemoglobin 10.9 g/dL (14.0-18.0); Mean Corpuscular HGB CONC 33.4 g/dL (32.0-36.0); Mean Corpuscular Hemoglobin 30.6 pg (27.0-31.0); Mean Corpuscular Volume 91.7 fL (78.0-98.0); Platelet Count 148 thou/uL (130-400); RBC Distribution Width 11.7 % (11.5-14.5); Red Blood Cell (RBC) Count 3.57 mill/uL (4.70-6.10)
[2018-11-09] MEDS: Meropenem 2 GM, Admixture Fee 1 EACH in Sodium Chloride 0.9% 100 ML IVPB SCH ×3 (05:41→21:47)
[2018-11-09 05:43] LABS: Anion Gap 12 mmol/L (10-20); BUN (Urea Nitrogen) 16 mg/dL (8.4-25.7); Calc. Creatinine Clearance 153 mL/min (70-130); Carbon Dioxide 22 mmol/L (23-31); Chloride 108 mmol/L (98-107); Estimated GFR-MDRD Greater than 90; Glucose 208 mg/dL (80-115); Potassium 3.2 mmol/L (3.5-5.1); Sodium 139 mmol/L (136-145)
[2018-11-09] MEDS: Sodium Chloride 0.9% 1,000 ML IV SCH ×2 (06:28→22:28)
[2018-11-09 07:17] LABS: Actual Bicarbonate (HCO3a) 24.4 mEq/L (22-28); Analyzer IN Cardio OR; Base Excess (BEa) 0.6 mEq/L (-2.0 to +3.0); CO2 Tension 36.2 mmHg (35.0-45.0); Calcium, Ionized 1.12 mmol/L (1.12-1.30); Carboxyhemoglobin (COHb) 0.3 gm% (0.0-3.0); Hemoglobin (Hb) 11.2 g/dL (14.0-18.0); O2 Tension (PaO2) 90.8 mmHg (> 80.0); Potassium - ABG Lab 4.16 mmol/L (3.70-5.30); pH, Arterial 7.45 (7.35-7.45)
[2018-11-09 07:18] LABS: Puncture Site ALINE
[2018-11-09] MEDS ORDERED: DC Sedation Protocol FS ONE ×2 (08:17→09:43)
--- NOTE | 2018-11-09 08:22 | RAD ---
SINGLE VIEW OF THE CHEST: INDICATION: Intubation. COMPARISON: Prior exam dated 11/08/2018. FINDINGS: Lungs are clear. Heart size is within normal limits. Feeding tube and NG tube are unchanged. There is improved aeration of the right mid lung. No pneumothorax is evident. IMPRESSION: Improved aeration of the right mid lung. Otherwise, stable exam. POS: [facility]
[2018-11-09] MEDS: Vancomycin HCl 1.25 GM in Sodium Chloride 0.9% 250 ML 250 ML IVPB SCH (08:35)
[2018-11-09] MEDS: Amlodipine 10 MG TAB PO SCH (08:35)
[2018-11-09] MEDS: Metoprolol Tartrate 50 MG TAB PO SCH ×2 (08:35→20:55)
--- NOTE | 2018-11-09 08:36 | PRG ---
DATE OF SERVICE: 11/09/2018 SUBJECTIVE: Andrew Tate, this morning, is intubated on the vent, is off sedation since 4 o'clock. OBJECTIVE: VITAL SIGNS: Pulse is 85, blood pressure is 140/80 , respirations 18. He is afebrile. His I's and O's have been 3562 in, 1257 out. NEUROLOGIC: He opens his eyes. Moves all 4 extremities. CHEST: Decreased breath sounds. No wheezing. CARDIAC: Normal S1 and S2. No gallops. ABDOMEN: Soft. EXTREMITIES: No edema. LABORATORY DATA: His white count is 11,000, H and H are stable. Blood gas; pO2 is 90, pCO2 is 36, pH is 7.45, at a rate of 10, 40%. His lytes are normal. Sodium 132, potassium 3.2. ASSESSMENT: Respiratory failure, status post cardiotomy evacuation and infection. PLAN: We will try and wean and hopefully extubate today. PT, supportive care. Antibiotic has been retained by Infectious Disease again. Meropenem, vancomycin, and Rocephin on board. We will follow. One-half hour of critical care time. Job ID: [id number]
--- NOTE | 2018-11-09 10:52 | PRG ---
DATE OF SERVICE: 11/09/2018 SUBJECTIVE: Mr. Tate is postoperative day 1 from wound washout for Serratia infection. He has been extubated this morning. He will open his eyes to a loud clap and follow commands more briskly in the upper extremities than lower extremities. His EVD is open at 5 cm of water and there has been slight clearing, but it remains yellow tinged. His cultures remain negative at this point from the surgery yesterday, although wound drainage the day before has shown gram-negative antonio, not surprising. He remains on aggressive broad-spectrum antibiotics and I am in full support of this. His white blood cell count continues to trend down in an encouraging fashion and his electrolytes essentially are unremarkable with elevated glucose of 200. He is off steroids at this point. We have initiated Lovenox and we will continue to drain him aggressively and try and clear this infection. Job ID: [id number]
--- NOTE | 2018-11-09 18:29 | PRG ---
DATE OF SERVICE: 11/09/2018 SUBJECTIVE: The patient has surgical debridement. All the hardware mesh removed from the left occipital area by Dr. Mckeon. The patient in the ICU, has been extubated. OBJECTIVE: VITAL SIGNS: Had one temperature of 100.6. He is now 98.7, blood pressure 140/75, and O2 saturations are normal. HEENT: He has hyperemic conjunctivae. Pupils are equal and reactive. NEUROLOGIC: He will follow some simple commands, but does not establish to eye contact. Does not open his eyes spontaneously at this point in time. LUNGS: Symmetric air entry. A little bit of wheezing noted. HEART: S1 and S2, regular rate. ABDOMEN: Soft, not distended. EXTREMITIES: Moves all extremities equally. LABORATORY DATA: White cell count is 11, which is down from previous levels; hemoglobin 10.9; and platelets 148 with 87% neutrophils. Creatinine 0.63. Microbiology shows gram-negative rods from the cranium incision likely with Serratia marcescens. The operative report by Dr. Mckeon was reviewed. Purulent material was expressed from the area of the left retrosigmoid wound and chuy were removed and wound was opened. Purulent material identified in the extracranial compartments. Sutures removed and then, the titanium mesh with a fascia melania graft deep to the fascia melania was removed. There was evidence of cerebritis. Hemostasis was maximized. ASSESSMENT AND DISCUSSION: Posterior fossa meningioma resection, postop infection with Serratia marcescens with persistence and then development of what appears to be a subdural collection with inflammatory process, infection of the mesh, which has been removed now. The area was washed out and we will continue with the broad-spectrum coverage for protracted periods of time. Hoping for resolution of inflammatory process. Eventual removal of the ventriculostomy tube, will need a PICC line placement and protracted Rocephin q.12 hours. Keep him on Merrem for the time being. Discontinue vancomycin. Job ID: [id number]
[2018-11-09] MEDS: Atorvastatin Calcium 20 MG TAB PO SCH (20:54)
[2018-11-09] MEDS: Enoxaparin Sodium 40 MG/0.4 ML SYRINGE SC SCH (20:55)
[2018-11-10] MEDS: Labetalol HCl 100 MG/20 ML VIAL SLOW IVP PRN ×11 (00:15→23:34)
[2018-11-10] MEDS: Acetaminophen 650 MG/20.3 ML UDCUP PO PRN ×4 (00:54→18:13)
[2018-11-10 04:06] LABS: #Eosinphils 0.1 thou/uL (0.0-0.7); #Lymphocytes 0.7 thou/uL (1.20-3.40); #Monocytes 0.4 thou/uL (0.11-0.59); #Neutrophils 8.2 thou/uL (1.40-6.50); %Basophils 0.3 % (0.0-1.0); %Eosinophils 0.7 % (0.0-10.0); %Lymphocytes 7.7 % (21.0-51.0); %Monocytes 4.3 % (0.0-10.0); Hemoglobin 10.4 g/dL (14.0-18.0); Mean Corpuscular HGB CONC 33.6 g/dL (32.0-36.0); Mean Corpuscular Hemoglobin 31.2 pg (27.0-31.0); Mean Corpuscular Volume 92.8 fL (78.0-98.0); Mean Platelet Volume 7.4 fL (7.4-10.4); Platelet Count 140 thou/uL (130-400); RBC Distribution Width 11.6 % (11.5-14.5); Red Blood Cell (RBC) Count 3.34 mill/uL (4.70-6.10); White Blood Cell (WBC) Count 9.4 thou/uL (4.8-10.8)
[2018-11-10 04:25] LABS: Anion Gap 10 mmol/L (10-20); BUN (Urea Nitrogen) 14 mg/dL (8.4-25.7); Calc. Creatinine Clearance 179 mL/min (70-130); Calcium 8.1 mg/dL (7.8-10.44); Carbon Dioxide 27 mmol/L (23-31); Chloride 104 mmol/L (98-107); Estimated GFR-MDRD Greater than 90; Glucose 152 mg/dL (80-115); Potassium 3.2 mmol/L (3.5-5.1); Sodium 138 mmol/L (136-145)
[2018-11-10] MEDS: Meropenem 2 GM, Admixture Fee 1 EACH in Sodium Chloride 0.9% 100 ML IVPB SCH ×3 (05:52→21:30)
--- NOTE | 2018-11-10 09:09 | PRG ---
DATE OF SERVICE: 11/10/2018 SUBJECTIVE: This morning, post extubation, no respiratory distress. Still very weak. OBJECTIVE: VITAL SIGNS: Sats 97% on room air, pulse 75, blood pressure 130/67, maximum temperature was 98. CHEST: Decreased breath sounds. No wheezing. CARDIAC: Normal S1, S2. No gallops. ABDOMEN: No masses. NEUROLOGIC: He is awake, opens his eyes. LABORATORY DATA: White count 9000, H and H is 10 and 30, platelet count is 140. Lytes are normal. IMPRESSION: Status post craniotomy, Serratia gram-negative sepsis, meningitis, severe deconditioning, and respiratory failure. PLAN: Continue broad-spectrum antibiotics for Serratia. DVT prophylaxis, PT and nutrition. We will follow. Job ID: [id number]
[2018-11-10] MEDS: Metoprolol Tartrate 50 MG TAB PO SCH ×2 (09:40→20:29)
[2018-11-10] MEDS: Amlodipine 10 MG TAB PO SCH (09:40)
--- NOTE | 2018-11-10 11:40 | ULT ---
BILATERAL LOWER EXTREMITY VENOUS DOPPLER ULTRASOUND: Date: 11/10/18 HISTORY: Impaired mobility and recent cranial surgery. TECHNIQUE: Caal scale ultrasound with color flow and spectral Doppler imaging of the deep venous systems of the lower extremities was performed bilaterally. FINDINGS: There is good flow, compression, and augmentation noted in the deep veins of the left lower extremity , including the left common femoral, femoral, deep femoral, popliteal, posterior tibial, and greater saphenous veins. There is absence of compression due to a nonocclusive thrombus in the right common femoral vein and o cclusive thrombus in the right popliteal veins. The remainder of the deep venous system of the right lower extremity is otherwise patent. IMPRESSION: Deep venous thrombosis in the right lower extremity. Report called over the telephone to the patient's nurse, Ruby Garay RN, at 0957 hours. CODE CR. POS: [facility]
[2018-11-10] MEDS: Sodium Chloride 0.9% 1,000 ML IV SCH (12:52)
--- NOTE | 2018-11-10 14:20 | PRG ---
DATE OF SERVICE: 11/10/2018 SUBJECTIVE: Mr. Tate is improved urologically this morning to a degree. He opens his eyes to voice and follows commands more briskly in the upper extremities. His EVD output continues to be robust and continues to be open at 5 cm of water. His wound culture is demonstrating gram-negative antonio, likely Serratia. We will continue aggressive drainage, but I am encouraged with the direction that we are proceeding at this time. We obtained ultrasound of the lower extremities and this demonstrates a DVT in the right lower extremity. We will need to arrange for filter. Job ID: [id number]
[2018-11-10] MEDS: Atorvastatin Calcium 20 MG TAB PO SCH (20:29)
[2018-11-10] MEDS: Enoxaparin Sodium 40 MG/0.4 ML SYRINGE SC SCH (20:29)
[2018-11-11] MEDS: Labetalol HCl 100 MG/20 ML VIAL SLOW IVP PRN ×9 (00:06→06:47)
[2018-11-11] MEDS: Acetaminophen 650 MG/20.3 ML UDCUP PO PRN ×4 (00:19→21:50)
[2018-11-11 04:41] LABS: #Lymphocytes 0.8 thou/uL (1.20-3.40); #Monocytes 0.3 thou/uL (0.11-0.59); #Neutrophils 6.5 thou/uL (1.40-6.50); %Basophils 0.4 % (0.0-1.0); %Eosinophils 0.6 % (0.0-10.0); %Monocytes 3.9 % (0.0-10.0); Hemoglobin 10.7 g/dL (14.0-18.0); Mean Corpuscular HGB CONC 33.3 g/dL (32.0-36.0); Mean Corpuscular Hemoglobin 30.6 pg (27.0-31.0); Mean Platelet Volume 7.2 fL (7.4-10.4); Platelet Count 166 thou/uL (130-400); RBC Distribution Width 11.6 % (11.5-14.5); Red Blood Cell (RBC) Count 3.49 mill/uL (4.70-6.10); White Blood Cell (WBC) Count 7.6 thou/uL (4.8-10.8)
[2018-11-11] MEDS: Sodium Chloride 0.9% 1,000 ML IV SCH ×2 (04:45→15:07)
[2018-11-11 05:07] LABS: Anion Gap 10 mmol/L (10-20); BUN (Urea Nitrogen) 12 mg/dL (8.4-25.7); Calc. Creatinine Clearance 169 mL/min (70-130); Calcium 8.3 mg/dL (7.8-10.44); Carbon Dioxide 28 mmol/L (23-31); Chloride 101 mmol/L (98-107); Estimated GFR-MDRD Greater than 90; Glucose 128 mg/dL (80-115); Potassium 3.4 mmol/L (3.5-5.1); Sodium 136 mmol/L (136-145)
[2018-11-11] MEDS ORDERED: Midazolam HCl 2 mg/2 ml Vial ONE (06:42)
[2018-11-11] MEDS ORDERED: Fentanyl 100 MCG/2 ML VIAL ONE (06:42)
[2018-11-11] MEDS: Meropenem 2 GM, Admixture Fee 1 EACH in Sodium Chloride 0.9% 100 ML IVPB SCH ×3 (07:53→23:59)
[2018-11-11] MEDS: Amlodipine 10 MG TAB PO SCH (07:54)
[2018-11-11] MEDS: Metoprolol Tartrate 50 MG TAB PO SCH ×2 (07:58→21:27)
--- NOTE | 2018-11-11 09:13 | OP ---
DATE OF PROCEDURE: 11/11/2018 PREOPERATIVE DIAGNOSIS: Right lower extremity deep venous thrombosis, post craniotomy. PROCEDURE PERFORMED: Left femoral access, IVC cavogram and replacement of Celect IVC filter. CONTRAST: 20 mL. FLUOROSCOPY: 0.9 minutes. DESCRIPTION OF PROCEDURE: After prepping and draping of the left groin, ultrasound-guided puncture was performed of the left femoral vein. A wire was inserted, and under fluoroscopy, dilator and sheath were advanced into the lower most portion of the vena cava, where contrast was injected and there was no evidence of thrombus in the cava. With the wire replaced, the catheter was then advanced to about the L1-L2 level and repeat venography obtained demonstrating origins of the bilateral renal veins. The cava measured about 20 mm at this level and the filter was then deployed. The patient tolerated the procedure well. Job ID: [id number]
--- NOTE | 2018-11-11 09:30 | PRG ---
DATE OF SERVICE: 11/11/2018 SUBJECTIVE: Andrew Tate is a 63-year-old gentleman, status post inferior vena cava filter. OBJECTIVE: VITAL SIGNS: Sats are 100% of oxygen, pulse 79, blood pressure is 140/68, respirations 18. His temperature was 98.4. CHEST: Decreased breath sounds. No wheezing. CARDIAC: Normal S1, S2. No gallops. ABDOMEN: No masses. LABORATORY DATA: White count 7000, H 10 and 32, platelet 166. Lytes are normal. ASSESSMENT: 1. Serratia gram-negative sepsis. 2. Deep venous thrombosis involving his left leg. 3. Nonocclusive thrombus in the right common femoral vein and right popliteal vein. PLAN: He is on Lovenox [address] continue antibiotics, meropenem and Rocephin. Supportive care. Neb treatments. We will follow. Job ID: [id number] MTDD
[2018-11-11] MEDS ORDERED: Sodium Chloride 0.9% (PF) 10 ML VIAL FS PRN (10:20)
[2018-11-11] MEDS ORDERED: Pantoprazole 40 MG VIAL IVP SCH (10:30)
[2018-11-11] MEDS ORDERED: Iopamidol 370 76% 50 ML VIAL FS ONE (11:17)
[2018-11-11] MEDS ORDERED: cefTRIAXone\\ROCEPHIN 2 GM in Sodium Chloride 0.9% 100 ML IVPB SCH (12:00)
[2018-11-11] MEDS: Morphine 2 MG/ML SYRINGE SLOW IVP PRN (12:07)
[2018-11-11] MEDS ORDERED: traMADol HCl 50 MG TAB PO PRN (12:14)
--- NOTE | 2018-11-11 13:30 | PRG ---
DATE OF SERVICE: 11/11/2018 SUBJECTIVE: Mr. Tate unfortunately was found to have an extensive right lower extremity DVT yesterday. Dr. Robles kindly placed an IVC filter this morning. We will continue the patient on Lovenox 40 mg subcutaneously. I really cannot go any higher at this point given the patient's placement of an external ventricular drain. We will continue to aggressively drain him at this point and attempt to clear his meningitis. He is receiving nutrition through nasogastric tube and opens his eyes to voice and does continue to follow commands, although, remains drowsy. Job ID: [id number]
--- NOTE | 2018-11-11 15:41 | PRG ---
DATE OF SERVICE: 11/11/2018 SUBJECTIVE: Mr. Tate is sitting up in a neuro chair in the ICU, still obtunded, but he does follow some commands. OBJECTIVE: VITAL SIGNS: T-max 101.7 yesterday at 12:00. He has been afebrile since. Other vital signs are normal. O2 saturations 92%. The patient has an IVC filter now inserted. HEENT: His pupils are equal. LUNGS: Symmetric air entry. HEART: S1 and S2, regular rate. ABDOMEN: Soft. Not distended. LABORATORY DATA: White cell count down to 7.6, hemoglobin 10.7, platelets 166. Serratia marcescens has been retrieved from the cranial wound exudate. The patient had a venogram, which showed deep vein thrombosis, which led to the placement of IVC. ASSESSMENT AND DISCUSSION: Posterior fossa meningioma resection with postop Serratia marcescens infection, abscess, contamination with the foreign bodies that were present, those had been removed and the area washed out, and now we have hopes for eradication of the Serratia. Switch him to Rocephin twice daily, treat for protracted periods of time, probably at least 6 weeks. Job ID: [id number]
[2018-11-11 15:49] LABS: Bilirubin Negative (Negative); Blood, Urine Small (Negative); Clarity CLEAR (Clear); Glucose, Urine (Dipstick) 100 mg/dL (Negative); Leukocyte Negative (Negative); Nitrite Negative (Negative); Protein, Urine (Dipstick) 30 mg/dL (Neg-Trace); Specific Gravity, Urine 1.017 (1.002-1.036); Urobilinogen 0.2 mg/dL (0.2-1.0)
[2018-11-11 15:51] LABS: Bacteria/HPF None Seen HPF (None Seen); Hyaline Casts/LPF 4-6 HYALINE CAST LPF (0-3 Hyaline); Pathc Cast-AUWi Flag 0.81 (0-2.49); Squamous Epithelial 0-3 HPF (0-3); WBC/HPF 0-3 HPF (0-3)
[2018-11-11 15:53] LABS: Renal Epithelial None Seen HPF (0-3); Transitional Epithelial NONE SEEN HPF (0-3)
--- NOTE | 2018-11-11 16:02 | RAD ---
SINGLE VIEW OF THE CHEST: 11/11/18 COMPARISON: 11/09/18. HISTORY: Fever. FINDINGS: Single view of the chest is rotated. There is a normal sized cardiomediastinal silhouette. A Dobhoff tube is seen with its tip in the stomach. There is no evidence of consolidation, mass, or pleural eff usion. IMPRESSION: 1. No evidence of acute cardiopulmonary disease. 2. Dobhoff tube located in the stomach. POS: [facility]
[2018-11-11] MEDS ORDERED: levETIRAcetam In NaCl (Iso-Os) 1,000 MG in Premix Bag 1 BAG IVPB SCH (16:15)
[2018-11-11] MEDS: Vancomycin HCl 1.5 GM in Sodium Chloride 0.9% 250 ML 300 ML IV SCH (16:25)
[2018-11-11] MEDS: Atorvastatin Calcium 20 MG TAB PO SCH (21:27)
[2018-11-11] MEDS: Enoxaparin Sodium 40 MG/0.4 ML SYRINGE SC SCH (21:27)
[2018-11-12] MEDS: Sodium Chloride 0.9% 1,000 ML IV SCH ×2 (01:47→14:32)
[2018-11-12] MEDS: Vancomycin HCl 1.5 GM in Sodium Chloride 0.9% 250 ML 300 ML IV SCH ×2 (03:55→15:44)
[2018-11-12 05:22] LABS: #Eosinphils 0.1 thou/uL (0.0-0.7); #Lymphocytes 0.9 thou/uL (1.20-3.40); #Monocytes 0.3 thou/uL (0.11-0.59); %Basophils 0.1 % (0.0-1.0); %Eosinophils 1.3 % (0.0-10.0); %Lymphocytes 11.8 % (21.0-51.0); %Monocytes 3.9 % (0.0-10.0); %Neutrophils 82.9 % (42.0-75.0); Hemoglobin 11.4 g/dL (14.0-18.0); Mean Corpuscular HGB CONC 33.4 g/dL (32.0-36.0); Mean Corpuscular Hemoglobin 30.5 pg (27.0-31.0); Mean Corpuscular Volume 91.2 fL (78.0-98.0); Mean Platelet Volume 7.6 fL (7.4-10.4); Platelet Count 166 thou/uL (130-400); RBC Distribution Width 11.7 % (11.5-14.5); Red Blood Cell (RBC) Count 3.73 mill/uL (4.70-6.10); White Blood Cell (WBC) Count 7.3 thou/uL (4.8-10.8)
[2018-11-12 05:40] LABS: Anion Gap 10 mmol/L (10-20); BUN (Urea Nitrogen) 9 mg/dL (8.4-25.7); Calc. Creatinine Clearance 152 mL/min (70-130); Calcium 8.3 mg/dL (7.8-10.44); Carbon Dioxide 30 mmol/L (23-31); Chloride 99 mmol/L (98-107); Estimated GFR-MDRD Greater than 90; Glucose 140 mg/dL (80-115); Potassium 3.3 mmol/L (3.5-5.1); Sodium 136 mmol/L (136-145)
[2018-11-12] MEDS: Acetaminophen 650 MG/20.3 ML UDCUP PO PRN ×3 (05:42→17:20)
--- NOTE | 2018-11-12 07:09 | CT ---
CT BRAIN WITHOUT IV CONTRAST: INDICATIONS: Left cranial wound exploration. COMPARISON: CT brain with and without contrast dated 11/07/2018. FINDINGS: Since the comparison examination, there has been removal of the overlying left occipital craniectomy mesh, with increased gas in the surgical bed of the left occipital lobe resection site. There is wor sening hypodensity within the left cerebellar hemisphere, suspicious for vasogenic edema, which may b e related to the recent surgery or possibly an infarction. There is worsening mass effect and narrow ing of the 4th ventricle. There is mild hydrocephalus with the temporal horn of the lateral ventricl e measuring up to 9 mm, where it previously measured up to 6.7 mm. The right frontal ventricle bill ter remains in the right lateral ventricle but is slightly more retracted than seen on a prior exam. No midline shift is evident; however, the prepontine cistern appears slightly more effaced than on t he prior exam. Prominent effusion remains within the left mastoid air cells. A small fluid collecti on is seen at the operative site, likely related to recent exploration. IMPRESSION: Worsening hypodensity involving the left cerebellar, suspicious for worsening vasogenic edema from th e patient's recent exploration. This could also be related to an infarction of the left cerebellar h emisphere. There is worsening mass effect of the 4th ventricle with worsening mild hydrocephalus. T here is some crowding of the posterior fossa with some mild effacement of the prepontine cistern. Cl ose clinical and CT followup is recommended. Findings were called to Julius Smith's answering serv ice at 5:12 a.m. on 11/12/2018. CODE CR POS: [facility]
--- NOTE | 2018-11-12 08:39 | PRG ---
DATE OF SERVICE: 11/12/2018 SUBJECTIVE: Remains in the ICU. OBJECTIVE: VITAL SIGNS: His temperature is 103.3 yesterday, this morning is 98, pulse 91, respirations 20, blood pressure 113/70. GENERAL: Opens his eyes, extremely weak. CHEST: Bilateral rhonchi. CARDIAC: Sinus tach. ABDOMEN: Distended, but soft. LABORATORY DATA: White count 7000, H and H 11 and 34, platelet count is normal. Lytes are normal. Repeat blood culture is growing coagulase negative Staph, probably contamination. Await final ID. His stool for C diff antigen toxin was negative. He has Serratia sepsis. IMPRESSION: 1. Gram-negative meningitis. 2. Sepsis, status post craniotomy. 3. Repeat CT shows worsening hyperdense left cerebellar edema. 4. Worsening hydrocephalus. Findings were notified to the neurosurgeon. Chest x-ray taken yesterday shows no acute infiltrates. There is some bibasilar atelectasis. 1. Status post craniotomy for meningioma. 2. Gram-negative sepsis. 3. Localize pulse in the mastoid, status post drainage. 4. Vasogenic edema of the cerebellar area. PLAN: His antibiotics will be adjusted by Infectious Disease to include meropenem and vancomycin. Concern about his vasogenic edema. need to be placed back on his Decadron. Discussed with Neurosurgery. He is status post inferior vena cava filter. One-half hour of critical time. Job ID: [id number]
[2018-11-12] MEDS: Morphine 2 MG/ML SYRINGE SLOW IVP PRN (08:50)
[2018-11-12] MEDS ORDERED: Dexamethasone 2 MG in Sodium Chloride 0.9% 50 ML IVPB SCH (09:00)
[2018-11-12] MEDS ORDERED: Dexamethasone 4 MG in Sodium Chloride 0.9% 50 ML IVPB SCH (09:00)
[2018-11-12] MEDS: Meropenem 2 GM, Admixture Fee 1 EACH in Sodium Chloride 0.9% 100 ML IVPB SCH ×2 (09:58→15:07)
[2018-11-12] MEDS: Dexamethasone 4 mg/ml Vial SLOW IVP SCH ×2 (09:59→20:24)
[2018-11-12] MEDS: Amlodipine 10 MG TAB PO SCH (09:59)
[2018-11-12] MEDS: Metoprolol Tartrate 50 MG TAB PO SCH ×2 (09:59→20:25)
[2018-11-12] MEDS: Pantoprazole 40 MG VIAL IVP SCH (10:00)
[2018-11-12] MEDS: Sodium Chloride 0.9% (PF) 10 ML VIAL FS PRN (10:00)
--- NOTE | 2018-11-12 11:24 | PRG ---
DATE OF SERVICE: 11/12/2018 SUBJECTIVE: Mr. Tate is hospital day #14, hospitalized for Serratia wound infection, meningitis and sepsis with associated hydrocephalus. He has a history of anaplastic meningioma, skull base and posterior fossa resection. He was febrile yesterday evening and blood cultures were drawn, which have demonstrated gram-positive cocci. Dr. Valverde is concerned about potential infection of that particular IV line. His other cultures have demonstrated Serratia. He is on currently meropenem and vancomycin. His white blood cell count now for 3 straight days has been normal. His fever has resolved. His hemodynamics have been stable. His EVD however was pulled out this morning and we have replaced this and we will keep him open at this point at 0 cm of water to aggressively treat his hydrocephalus in attempt to clear his CSF. We will continue this through the weekend. I should note a head CT this morning with a drain set at 5 cm of water demonstrated the EVD to be pulled back a bit, but still in the ventricle, but it had ceased function by this morning and some edema in the cerebellum. He has been initiated by Dr. Guardado on low-dose Decadron. Ultrasound of the lower extremities revealed a right lower extremity DVT. He is on low-dose Lovenox as well and also has a filter in place. His prognosis remains guarded and on exam he remains drowsy. He will weakly attempt to open his eyes, but does not maintain focus on the examiner. He will follow commands; however, he did have rigors yesterday with fever and given his potential for seizure due to the meningitis, he is also on prophylactic levetiracetam. Job ID: [id number]
[2018-11-12] MEDS: Labetalol HCl 100 MG/20 ML VIAL SLOW IVP PRN ×5 (12:07→22:28)
[2018-11-12 13:17] LABS: Fungus Stain Final report (.)
--- NOTE | 2018-11-12 16:00 | PRG ---
DATE OF SERVICE: 11/12/2018 SUBJECTIVE: Mr. Tate had a temp elevation of 103 yesterday. Now, it is back down to normal. His neuro status is about the same. He is not responding very much. He keeps his eyes open, but does not establish eye contact. He will arouse a bit when his name is called. He does not follow commands. OBJECTIVE: VITAL SIGNS: Temperature 103.6 yesterday, is now 99.6. BP 160/82 and pulse 83. HEENT: Ocular movements are conjugate. No nystagmus. Pupils are equal, about 2 mm. LUNGS: Symmetric breath sounds. Somewhat coarse breath sounds. HEART: S1 and S2. Regular rate. ABDOMEN: Soft and not distended. EXTREMITIES: Midline has been pulled and he has a peripheral IV access, although stiffness is diffuse. LABORATORY DATA: White cell count 7.3, hemoglobin 11.4, and platelets 166. Sodium 136 and creatinine 0.61. Two sets of blood cultures from yesterday thus far negative. Coagulase-negative Staph 2/[address] of brain showed worsening hypodensity in left cerebellar areas, possible vasogenic edema from recent exploration, possible infarction of left cerebellar hemisphere, worsening mass effect of the fourth ventricle with worsening mild hydrocephalus. The [employer] shunt was replaced because the previous one had been out of position. ASSESSMENT AND DISCUSSION: History of fossa meningioma resection with postoperative Serratia marcescens infection, abscesses, and meningitis. Continues to have fever intermittently. Colonization of the central line by coagulase-negative Staphylococcus bacteremia has been diagnosed and the line has been removed. The patient will continue meropenem and vancomycin for now. Job ID: [id number]
[2018-11-12] MEDS: hydrALAZINE 20 MG/ML VIAL SLOW IVP PRN (17:06)
[2018-11-12] MEDS: Atorvastatin Calcium 20 MG TAB PO SCH (20:25)
[2018-11-12] MEDS: Enoxaparin Sodium 40 MG/0.4 ML SYRINGE SC SCH (20:25)
[2018-11-13] MEDS: Labetalol HCl 100 MG/20 ML VIAL SLOW IVP PRN ×5 (00:09→18:23)
[2018-11-13] MEDS: hydrALAZINE 20 MG/ML VIAL SLOW IVP PRN (03:02)
[2018-11-13 03:43] LABS: #Lymphocytes 0.7 thou/uL (1.20-3.40); #Monocytes 0.3 thou/uL (0.11-0.59); #Neutrophils 6.4 thou/uL (1.40-6.50); %Basophils 0.3 % (0.0-1.0); %Eosinophils 0.6 % (0.0-10.0); %Lymphocytes 9.9 % (21.0-51.0); %Monocytes 3.8 % (0.0-10.0); %Neutrophils 85.4 % (42.0-75.0); Hemoglobin 12.3 g/dL (14.0-18.0); Mean Corpuscular HGB CONC 34.7 g/dL (32.0-36.0); Mean Corpuscular Hemoglobin 31.1 pg (27.0-31.0); Mean Corpuscular Volume 89.4 fL (78.0-98.0); Mean Platelet Volume 7.7 fL (7.4-10.4); Platelet Count 198 thou/uL (130-400); RBC Distribution Width 11.7 % (11.5-14.5); Red Blood Cell (RBC) Count 3.97 mill/uL (4.70-6.10); White Blood Cell (WBC) Count 7.4 thou/uL (4.8-10.8)
[2018-11-13] MEDS: Vancomycin HCl 1.5 GM in Sodium Chloride 0.9% 250 ML 300 ML IV SCH (03:54)
[2018-11-13 04:16] LABS: Vancomycin, Trough 10.6 ug/mL
[2018-11-13 04:19] LABS: Anion Gap 15 mmol/L (10-20); BUN (Urea Nitrogen) 10 mg/dL (8.4-25.7); Calc. Creatinine Clearance 162 mL/min (70-130); Calcium 8.6 mg/dL (7.8-10.44); Carbon Dioxide 22 mmol/L (23-31); Chloride 101 mmol/L (98-107); Estimated GFR-MDRD Greater than 90; Glucose 160 mg/dL (80-115); Potassium 3.9 mmol/L (3.5-5.1); Sodium 134 mmol/L (136-145)
[2018-11-13] MEDS: Amlodipine 10 MG TAB PO SCH (08:23)
[2018-11-13] MEDS: Dexamethasone 4 mg/ml Vial SLOW IVP SCH ×2 (08:23→21:11)
[2018-11-13] MEDS: Sodium Chloride 0.9% (PF) 10 ML VIAL FS PRN (08:24)
[2018-11-13] MEDS: Sodium Chloride 0.9% 1,000 ML IV SCH (08:24)
[2018-11-13] MEDS: Pantoprazole 40 MG VIAL IVP SCH (08:24)
[2018-11-13] MEDS: Metoprolol Tartrate 50 MG TAB PO SCH ×2 (08:24→21:12)
[2018-11-13] MEDS: Meropenem 2 GM, Admixture Fee 1 EACH in Sodium Chloride 0.9% 100 ML IVPB SCH ×3 (08:32→15:49)
--- NOTE | 2018-11-13 09:14 | PRG ---
DATE OF SERVICE: 11/13/2018 SUBJECTIVE: Mr. Tate remains in the CCU for the purpose of interventricular monitoring. He is poorly responsive to commands, but the nurse did tell me that the patient was able to speak a few words last night and can intermittently follow commands. OBJECTIVE: VITAL SIGNS: Today, his temperature is 99.3 with a T-max of 100.0, pulse 85,, blood pressure 134/76, his O2 saturations 100% on room air. GENERAL: He is lying quietly in bed. He has an EVD in place in the right frontal area. HEENT: Remarkable for eye deviation to the right. NECK: Without adenopathy or JVD. LUNGS: Coarse breath sounds, but no respiratory distress. CARDIOVASCULAR: S1 and S2, regular without audible murmur. ABDOMEN: Soft and nontender. EXTREMITIES: No clubbing, cyanosis, or edema. LABORATORY DATA: White blood cell count 7.4, hemoglobin 12, hematocrit 35.5, and platelet count 198. Sodium 134,, potassium 3.9, chloride 101, CO2 22, BUN 10, creatinine 0.6, and glucose 160. ASSESSMENT: 1. Gram-negative meningitis. 2. Status post craniotomy. 3. Hydrocephalus. 4. Status post resection of meningioma. PLAN: The patient is to continue supportive care with IV antibiotics under the direction of Dr. Valverde. He is to continue enteral tube feeds for nutritional support. He is on some IV fluids. He is also on IV steroids for cerebral edema. His prognosis remains guarded. His labs will continue to be monitored closely. Job ID: [id number]
--- NOTE | 2018-11-13 12:20 | PRG ---
DATE OF SERVICE: 11/13/2018 I saw Mr. Tate in his ICU room this morning. An EVD was replaced yesterday after it was accidentally withdrawn. EVD has been functional all night. Overnight, the T-max was 99.6. On my examination, Mr. Tate is a bit better than he was yesterday. He opens his eyes to voice and he said good morning to me. He follows commands on both upper extremities. He is wiggling his toes. He withdraws both lower extremities quite briskly. We will continue Mr. Tate's antibiotic regimen. We will leave the EVD open at zero all weekend, weaning that EVD or transitioning to ventriculoperitoneal shunt can be determined next week. In the meantime, I am cautiously optimistic about a slight improvement in neurological function. Job ID: [id number]
[2018-11-13] MEDS: HumaLOG 300 UNITS/3 ML VIAL SC PRN (15:48)
[2018-11-13] MEDS: Vancomycin HCl 1.75 GM in Sodium Chloride 0.9% 500 ML IVPB SCH (16:01)
--- NOTE | 2018-11-13 16:53 | PRG ---
DATE OF SERVICE: 11/13/2018 SUBJECTIVE: Mr. Tate is awake and alert, follows commands and able to understand the spoken word. Still has some right gaze preference. Pupils are equal. No nystagmus. He has the percutaneous ventriculostomy. All the central lines removed. He has a peripheral IV access to right upper extremity. OBJECTIVE: LUNGS: Symmetric air entry. HEART: S1 and S2, regular rate. ABDOMEN: Soft. Not distended. GENITOURINARY: He has a Valdez catheter in place. The I's and O's have been slightly positive for the past few days. LABORATORY DATA: White cell count 7.4, hemoglobin 12.3, and platelets 198. Creatinine 0.57. We have the 2 sets of blood cultures from November 10 with Staph epidermidis, probably related to the central line colonization, which caused the fever. He continues on meropenem and vancomycin. ASSESSMENT AND DISCUSSION: Meningioma with postop infection by Serratia development of complications, which required washout of the area and removal of the hardware. He still has a ventriculostomy tube and then developed Staph epidermidis colonization of central line with bacteremia, which led to a recrudescence of fever. Finally, it looks like we have an inflammatory process under control. The patient to continue on meropenem and vancomycin for now. The duration of therapy for the coagulase-negative Staph bacteremia is going to be short, probably no more than 1 week. After that, we will continue just with Merrem or transitioning him back to Rocephin. Job ID: [id number]
[2018-11-13] MEDS: Atorvastatin Calcium 20 MG TAB PO SCH (21:11)
[2018-11-13] MEDS: Enoxaparin Sodium 40 MG/0.4 ML SYRINGE SC SCH (21:12)
[2018-11-14] MEDS: Sodium Chloride 0.9% 1,000 ML IV SCH ×2 (00:03→11:57)
[2018-11-14] MEDS: Meropenem 2 GM, Admixture Fee 1 EACH in Sodium Chloride 0.9% 100 ML IVPB SCH ×3 (00:41→16:11)
[2018-11-14] MEDS: Vancomycin HCl 1.75 GM in Sodium Chloride 0.9% 500 ML IVPB SCH ×2 (04:08→16:11)
[2018-11-14 05:56] LABS: #Monocytes 0.3 thou/uL (0.11-0.59); #Neutrophils 6.6 thou/uL (1.40-6.50); %Basophils 0.1 % (0.0-1.0); %Eosinophils 0.5 % (0.0-10.0); %Lymphocytes 12.4 % (21.0-51.0); %Monocytes 4.3 % (0.0-10.0); %Neutrophils 82.7 % (42.0-75.0); Hemoglobin 12.3 g/dL (14.0-18.0); Mean Corpuscular Hemoglobin 30.6 pg (27.0-31.0); Mean Corpuscular Volume 90.2 fL (78.0-98.0); Mean Platelet Volume 7.4 fL (7.4-10.4); Platelet Count 204 thou/uL (130-400); RBC Distribution Width 12.3 % (11.5-14.5); Red Blood Cell (RBC) Count 4.01 mill/uL (4.70-6.10)
[2018-11-14 06:16] LABS: Anion Gap 11 mmol/L (10-20); BUN (Urea Nitrogen) 14 mg/dL (8.4-25.7); Calc. Creatinine Clearance 171 mL/min (70-130); Calcium 8.7 mg/dL (7.8-10.44); Carbon Dioxide 24 mmol/L (23-31); Chloride 102 mmol/L (98-107); Estimated GFR-MDRD Greater than 90; Glucose 168 mg/dL (80-115); Potassium 3.9 mmol/L (3.5-5.1); Sodium 133 mmol/L (136-145)
--- NOTE | 2018-11-14 08:18 | PRG ---
DATE OF SERVICE: 11/14/2018 SUBJECTIVE: The patient will wake up with deep stimulation. He will not follow any commands for me specifically. He is not intubated and does not appear to be in any distress. OBJECTIVE: VITAL SIGNS: Temperature is 98.5, pulse 77, blood pressure 132/85, O2 saturation is 100%. HEENT: He has a slight right gaze preference. Sclerae anicteric. Oropharynx is clear. NECK: No JVD. LUNGS: Clear anteriorly. CARDIAC: S1, S2. Regular. ABDOMEN: Soft, nontender. EXTREMITIES: No edema. LABORATORY DATA: White cell count of 8, hematocrit 36.1, and platelet count 204. Sodium 133, potassium 3.9, chloride 102, CO2 of 24, BUN 14, creatinine 0.5, glucose 168. ASSESSMENT: 1. Serratia meningitis. 2. Status post resection of meningioma. 3. Status post craniotomy. 4. Hydrocephalus. PLAN: He is continuing EVD drainage. He is continuing antibiotics. His situation is stable from a critical care standpoint. Antibiotics are being managed by Dr. Valverde. Job ID: [id number]
[2018-11-14] MEDS: Metoprolol Tartrate 50 MG TAB PO SCH ×2 (08:43→21:00)
[2018-11-14] MEDS: Amlodipine 10 MG TAB PO SCH (08:43)
[2018-11-14] MEDS: Pantoprazole 40 MG VIAL IVP SCH (08:44)
[2018-11-14] MEDS: Dexamethasone 4 mg/ml Vial SLOW IVP SCH ×2 (08:45→21:04)
[2018-11-14] MEDS ORDERED: Furosemide 40 MG/4 ML VIAL SLOW IVP SCH (10:45)
--- NOTE | 2018-11-14 11:57 | PRG ---
DATE OF SERVICE: 11/14/2018 I saw Mr. Tate in his ICU room this morning. His EVD is working well. The reported that he opens his eyes and look better and attempted to say good morning to her this morning when she entered the room. Mr. Tate's vital signs have been stable. The drain is working well. When I wake Mr. Tate by applying some gentle pressure to his back, he opens his eyes. Asked him to say the morning and he does so. He squeeze both hands for me. He wiggles his toes. Laboratory studies suggest Mr. Tate is dipping back into hyponatremia. I do not want this to increase the swelling in the brain. We will attempt to halt it with a small dose of Lasix. We will restrict any free water. Tube feed flushes will be done with saline. We will fluid restrict gently for now. If hyponatremia deepens, we will fluid restrict more aggressively. Job ID: [id number]
[2018-11-14] MEDS: HumaLOG 300 UNITS/3 ML VIAL SC PRN (15:41)
[2018-11-14 16:52] LABS: Sodium 136 mmol/L (136-145)
[2018-11-14] MEDS: Atorvastatin Calcium 20 MG TAB PO SCH (21:00)
[2018-11-14] MEDS: Enoxaparin Sodium 40 MG/0.4 ML SYRINGE SC SCH (21:04)
[2018-11-15] MEDS: Meropenem 2 GM, Admixture Fee 1 EACH in Sodium Chloride 0.9% 100 ML IVPB SCH ×4 (00:02→23:45)
[2018-11-15 03:55] LABS: #Eosinphils 0.1 thou/uL (0.0-0.7); #Lymphocytes 1.3 thou/uL (1.20-3.40); #Monocytes 0.6 thou/uL (0.11-0.59); #Neutrophils 8.6 thou/uL (1.40-6.50); %Basophils 0.1 % (0.0-1.0); %Eosinophils 0.6 % (0.0-10.0); %Monocytes 5.8 % (0.0-10.0); %Neutrophils 81.6 % (42.0-75.0); Hemoglobin 12.6 g/dL (14.0-18.0); Mean Corpuscular HGB CONC 33.5 g/dL (32.0-36.0); Mean Corpuscular Hemoglobin 30.4 pg (27.0-31.0); Mean Corpuscular Volume 90.7 fL (78.0-98.0); Mean Platelet Volume 7.4 fL (7.4-10.4); Platelet Count 246 thou/uL (130-400); RBC Distribution Width 12.9 % (11.5-14.5); Red Blood Cell (RBC) Count 4.16 mill/uL (4.70-6.10); White Blood Cell (WBC) Count 10.5 thou/uL (4.8-10.8)
[2018-11-15 04:11] LABS: Vancomycin, Trough 19.5 ug/mL
[2018-11-15 04:13] LABS: Anion Gap 11 mmol/L (10-20); BUN (Urea Nitrogen) 20 mg/dL (8.4-25.7); Calc. Creatinine Clearance 157 mL/min (70-130); Calcium 9.4 mg/dL (7.8-10.44); Carbon Dioxide 28 mmol/L (23-31); Chloride 101 mmol/L (98-107); Estimated GFR-MDRD Greater than 90; Glucose 142 mg/dL (80-115); Potassium 4.3 mmol/L (3.5-5.1); Sodium 136 mmol/L (136-145)
[2018-11-15] MEDS: Vancomycin HCl 1.75 GM in Sodium Chloride 0.9% 500 ML IVPB SCH ×2 (04:34→16:14)
[2018-11-15] MEDS: Amlodipine 10 MG TAB PO SCH (08:49)
[2018-11-15] MEDS: Dexamethasone 4 mg/ml Vial SLOW IVP SCH ×2 (08:50→20:28)
[2018-11-15] MEDS: Metoprolol Tartrate 50 MG TAB PO SCH ×2 (08:50→20:29)
[2018-11-15] MEDS: Pantoprazole 40 MG VIAL IVP SCH (08:50)
[2018-11-15] MEDS: Sodium Chloride 0.9% (PF) 10 ML VIAL FS PRN (08:51)
--- NOTE | 2018-11-15 09:39 | PRG ---
DATE OF SERVICE: Mr. Tate is now 1 week out from his wound washout. He had to replace his external ventricular drain on Thursday as it was dislodged. We have the drain open at zero and it is functioning. He has his eyes open, but he does not look directly at me. He does attempt to mouth words. We will continue with aggressive drainage of his ventricles to try and clear his CSF of his Serratia bacteria. Job ID: [id number]
--- NOTE | 2018-11-15 14:35 | PRG ---
DATE OF SERVICE: 11/15/2018 SERVICE: Pulmonary Medicine. INTERVAL HISTORY: The patient's mentation is stable. There had not been any significant improvement in his symptoms. He cannot provide any additional elements of the history. He has an EVD that is draining clear fluid. He also is tolerating tube feeds. Otherwise, there were no events. He does have a cough and can clear his lungs. He has a hard time swallowing, however, and he is requiring frequent suctioning in the back of his throat. PHYSICAL EXAMINATION: VITAL SIGNS: Afebrile currently, T-max 99.3, pulse 89, blood pressure 131/83, respirations 18, and saturation 99% on room air. GENERAL: The patient is awake and alert, in no apparent distress. LUNGS: Decent air entry with no prolonged expiratory phase or wheezing present. HEART: Normal rate and regular. ABDOMEN: Soft, nontender and nondistended. Bowel sounds are positive. MUSCULOSKELETAL: No cyanosis or clubbing. There is no pitting in the bilateral lower extremities. LABORATORY DATA: WBC 10.5, hemoglobin 12.6, platelets 246,000. Neutrophil count is stable at 82% and slightly downtrending. Basic metabolic profile is essentially unremarkable. Blood cultures are negative in 2/2. C diff antigen and toxin are both unremarkable. Previously, cultures grow Staph epidermidis in 2/2 (victoria resistant), and Serratia marcescens was growing from the fluid in the CSF, pansensitive. ASSESSMENT: 1. Meningitis secondary to Serratia. 2. Bacteremia secondary to Staph epidermidis, victoria resistant. 3. Meningioma, status post recent craniotomy with excision. 4. Hydrocephalus, status post external ventricular drain. DISCUSSION AND PLAN: EVD remains in place. His encephalopathy is roughly stable. We will continue to provide him with nutrition and other supportive measures while he remains in the ICU. Antibiotics will be continued per ID recommendations. Pulmonary Critical Care will continue to follow along in this location. Job ID: [id number] [facility]
[2018-11-15 16:31] LABS: Sodium 138 mmol/L (136-145)
[2018-11-15] MEDS: Enoxaparin Sodium 40 MG/0.4 ML SYRINGE SC SCH (20:28)
[2018-11-15] MEDS: levETIRAcetam 500 mg/5 ml Oral Solution PER TUBE SCH (20:29)
[2018-11-15] MEDS: Atorvastatin Calcium 20 MG TAB PO SCH (20:29)
[2018-11-16] MEDS: Vancomycin HCl 1.75 GM in Sodium Chloride 0.9% 500 ML IVPB SCH ×2 (04:30→16:28)
[2018-11-16] MEDS: Meropenem 2 GM, Admixture Fee 1 EACH in Sodium Chloride 0.9% 100 ML IVPB SCH ×2 (07:48→15:17)
[2018-11-16] MEDS: Dexamethasone 4 mg/ml Vial SLOW IVP SCH ×3 (09:18→22:42)
[2018-11-16] MEDS: levETIRAcetam 500 mg/5 ml Oral Solution PER TUBE SCH ×2 (09:18→22:44)
[2018-11-16] MEDS: Amlodipine 10 MG TAB PO SCH (09:19)
[2018-11-16] MEDS: Metoprolol Tartrate 50 MG TAB PO SCH ×2 (09:19→21:25)
[2018-11-16] MEDS: Pantoprazole 40 MG VIAL IVP SCH (09:19)
--- NOTE | 2018-11-16 09:45 | CT ---
CT BRAIN WITHOUT CONTRAST: Comparison: 11-12-18 History: Altered mental status and difficulty waking. History of an infection of the meninges, status post-surgery. Technique: Multiple contiguous axial images were obtained in a CT of the brain without contrast. FINDINGS: Post-surgical changes are seen in the left posterior fossa. Hypodensity is seen involving the left ce rebellar hemisphere. A right frontal ventriculostomy catheter is seen with its tip in the third ventr icle. No hydrocephalus is seen. The ventricles are smaller in size than on the prior examination. No downward herniation or significant midline shift is seen at this time. IMPRESSION: Post-surgical changes in the left posterior fossa with decreased size of the lateral ventricles. POS: [facility]
[2018-11-16 10:07] LABS: #Basophils 0.1 thou/uL (0.0-0.2); #Eosinphils 0.1 thou/uL (0.0-0.7); #Lymphocytes 2.1 thou/uL (1.20-3.40); #Monocytes 0.8 thou/uL (0.11-0.59); #Neutrophils 7.9 thou/uL (1.40-6.50); %Basophils 0.7 % (0.0-1.0); %Eosinophils 0.5 % (0.0-10.0); %Lymphocytes 18.8 % (21.0-51.0); %Monocytes 7.7 % (0.0-10.0); %Neutrophils 72.3 % (42.0-75.0); Hemoglobin 12.9 g/dL (14.0-18.0); Mean Corpuscular HGB CONC 33.1 g/dL (32.0-36.0); Mean Corpuscular Hemoglobin 30.7 pg (27.0-31.0); Mean Corpuscular Volume 92.8 fL (78.0-98.0); Platelet Count 212 thou/uL (130-400); RBC Distribution Width 13.3 % (11.5-14.5); White Blood Cell (WBC) Count 10.9 thou/uL (4.8-10.8)
[2018-11-16 10:26] LABS: Anion Gap 15 mmol/L (10-20); Calcium 8.9 mg/dL (7.8-10.44); Carbon Dioxide 20 mmol/L (23-31); Chloride 104 mmol/L (98-107); Potassium 4.1 mmol/L (3.5-5.1); Sodium 135 mmol/L (136-145)
[2018-11-16] MEDS ORDERED: Dexamethasone 4 mg/ml Vial SLOW IVP SCH (10:30)
[2018-11-16 10:40] LABS: Glucose 115 mg/dL (80-115)
[2018-11-16 10:44] LABS: Calc. Creatinine Clearance 166 mL/min (70-130); Estimated GFR-MDRD Greater than 90
[2018-11-16 10:45] LABS: BUN (Urea Nitrogen) 19 mg/dL (8.4-25.7)
--- NOTE | 2018-11-16 10:48 | PRG ---
DATE OF SERVICE: 11/16/2018 SUBJECTIVE: Mr. Tate continues to have difficulties with his recovery. This morning, he was somnolent and did not respond to our team's exam. As such, we obtained a head CT, demonstrates vasogenic edema in the left cerebellum, which the patient had preoperatively due to his tumor mass effect. However, obviously he has had two surgeries, and there is moderate effacement of the fourth ventricle, but the ventricular caliber is significantly improved and well decompressed with a well-positioned EVD. I had tried to decrease his Decadron yesterday from 2 mg twice daily to 1 mg twice daily, and we may be dealing with the persistence of edema. As such, I have asked the nurse to give him 10 mg of Decadron and reinitiate him on 4 mg every [address] Hines had seen the patient and was concerned about right focal motor upper extremity seizure, and in fact, while I am seeing him now, he does have a significant tremor of the right upper extremity. Nevertheless, he is able to open his eyes, mouth words, and follow commands in the right upper extremity. I have reviewed the EEG, and I do not see any electrical correlate for seizure. I suspect this is cerebellar tremor. He is already on levetiracetam. Laboratory assessment demonstrates a mild leukocytosis at 10.9, but he is afebrile. We will need to follow up on his sodium, yesterday it was 136 and a followup is 138. Hopefully, with the Decadron, we can continue to minimize the effect of the edema. I will ask my colleague Ms. Smith to send CSF today just so we have a followup, although all clinical and laboratory assessment demonstrate that he is headed in the right direction in this regard. Job ID: [id number]
[2018-11-16] MEDS: Acetaminophen 650 MG/20.3 ML UDCUP PO PRN ×2 (10:51→17:26)
--- NOTE | 2018-11-16 11:08 | PRG ---
DATE OF SERVICE: 11/16/2018 SERVICE: Pulmonary Medicine. INTERVAL HISTORY: The patient is doing fine from respiratory standpoint. Breathing comfortably. Neurologically, things have changed very little. Occasionally, he has been reported to localize the left upper extremity. He does move all 4 extremities. He does have a tremor this morning, which I have never witnessed before. It appears that he has an active contraction of both bilateral shoulders and arms followed by relaxation phase. The frequency is very quick. Otherwise, there has been no interval change to his condition. PHYSICAL EXAMINATION: VITAL SIGNS: Afebrile, pulse 104, blood pressure 134/88, respirations 27, saturation 94% on room air. GENERAL: The patient is somnolent. HEENT: Normocephalic and atraumatic. Sclerae white. Conjunctivae pink. Oral mucosa is moist without lesions. He has up and rightward gaze preference. LUNGS: Decent air entry. Rhonchi are present, but clear with cough. No prolonged expiratory phase or wheezing is appreciated. HEART: Normal rate and regular. ABDOMEN: Soft, nontender, nondistended. Bowel sounds are positive. MUSCULOSKELETAL: No cyanosis or clubbing. EXTREMITIES: There is no pitting in the bilateral lower extremities. LABORATORY DATA: WBC 10.9, hemoglobin 12.9, and platelets 212,000. Sodium 138 as of this morning. He has downtrended to 135 this afternoon. Bicarb 20 and dropping. Basic metabolic profile is otherwise unremarkable. Creatinine and BUN fall within the normal limits. Most recent blood culture x2 was unremarkable. C. diff antigen and toxin are unremarkable. He had previous blood cultures that were growing Staph epidermidis, and the CSF fluid was growing Serratia marcescens. IMAGING STUDIES: CT of the brain demonstrates postsurgical changes in the left posterior fossa with decreased size of the lateral ventricles. Left cerebellar edema is present. ASSESSMENT: 1. Meningitis secondary to Serratia. 2. Bacteremia secondary to Staphylococcus epidermidis, resistant. 3. Meningioma, status post recent craniotomy with excision. 4. Hydrocephalus, status post external ventricular drain. DISCUSSION AND PLAN: I will get an EEG to make certain that this tremulous activity does not represent any seizures. Antibiotics will be directed per ID. Critical Care will continue to follow along so long as the patient remains in the ICU. He needs to stay here for frequent neuro checks. We will monitor for signs of increasing sepsis. If we see anything, panculture will be considered once again. Job ID: [id number]
[2018-11-16 15:05] LABS: CSF Source CSF; Clarity Hazy (Clear); RBC Count - Manual 1750 /cumm (None Seen); WBC/NonHematics Count - Manual 9 /cumm (0-5)
[2018-11-16 15:20] LABS: CSF, Glucose 53 mg/dl (40-70); CSF, Protein 95 mg/dL (15-40)
[2018-11-16 15:32] LABS: Color Of CSF Supernatant COLORLESS (Colorless); Unspun CSF Color COLORLESS (Colorless)
[2018-11-16 15:33] LABS: Tube # 1
[2018-11-16 15:37] LABS: Cell Count Non Hematic 26 %; Lymphocytes 42 %; Segmented Neutrophils 32 %
--- NOTE | 2018-11-16 15:45 | EEG ---
Referring Physician: Ahmet FUNG EEG # [id number] TEST TYPE: STAT PORTABLE INPATIENT REPORT: AN EEG USING THE [employer]NATIONAL TEN-TWENTY SYSTEM OF ELECTRODE PLACEMENT WAS PERFORMED. The background activity shows some generalized slowing in the range of 5-7 hertz theta frequency. Some EMG artifact is present through most of the study. no epileptiform features were seen. Photic stimulation was unremarkable. IMPRESSION: THIS IS AN ABNORMAL STUDY FOR THE FINDINGS OF DIFFUSE SLOWING CONSISTENT WITH A DIFFUSE ENCEPHALOPATHIC PROCESS. Ict Managers: DARREN Grubber: EEG.VARUN SHIN
[2018-11-16] MEDS: HumaLOG 300 UNITS/3 ML VIAL SC PRN ×2 (16:25→21:12)
[2018-11-16] MEDS: Enoxaparin Sodium 40 MG/0.4 ML SYRINGE SC SCH (21:24)
[2018-11-16] MEDS: Atorvastatin Calcium 20 MG TAB PO SCH (21:25)
[2018-11-17] MEDS: Meropenem 2 GM, Admixture Fee 1 EACH in Sodium Chloride 0.9% 100 ML IVPB SCH ×4 (00:13→23:27)
[2018-11-17] MEDS: Dexamethasone 4 mg/ml Vial SLOW IVP SCH ×5 (00:13→23:27)
[2018-11-17] MEDS: Vancomycin HCl 1.75 GM in Sodium Chloride 0.9% 500 ML IVPB SCH (04:29)
[2018-11-17] MEDS: HumaLOG 300 UNITS/3 ML VIAL SC PRN ×3 (06:35→22:23)
[2018-11-17 08:01] LABS: Prothrombin Time 13.1 SEC (12.0-14.7)
[2018-11-17] MEDS: Amlodipine 10 MG TAB PO SCH (09:18)
[2018-11-17] MEDS: Metoprolol Tartrate 50 MG TAB PO SCH ×2 (09:18→20:26)
[2018-11-17] MEDS: levETIRAcetam 500 mg/5 ml Oral Solution PER TUBE SCH ×2 (09:18→20:26)
[2018-11-17] MEDS: Pantoprazole 40 MG VIAL IVP SCH (09:19)
[2018-11-17] MEDS: Sodium Chloride 0.9% (PF) 10 ML VIAL FS PRN (09:19)
[2018-11-17] MEDS: Acetaminophen 650 MG/20.3 ML UDCUP PO PRN (09:44)
[2018-11-17 10:15] LABS: Anion Gap 12 mmol/L (10-20); BUN (Urea Nitrogen) 21 mg/dL (8.4-25.7); Calc. Creatinine Clearance 177 mL/min (70-130); Calcium 8.9 mg/dL (7.8-10.44); Carbon Dioxide 24 mmol/L (23-31); Chloride 106 mmol/L (98-107); Estimated GFR-MDRD Greater than 90; Glucose 167 mg/dL (80-115); Potassium 3.9 mmol/L (3.5-5.1); Sodium 138 mmol/L (136-145)
[2018-11-17 10:16] LABS: Hemoglobin 12.1 g/dL (14.0-18.0); Mean Corpuscular HGB CONC 33.6 g/dL (32.0-36.0); Mean Corpuscular Hemoglobin 30.6 pg (27.0-31.0); Mean Corpuscular Volume 91.1 fL (78.0-98.0); Mean Platelet Volume 7.9 fL (7.4-10.4); Platelet Count 217 thou/uL (130-400); Red Blood Cell (RBC) Count 3.96 mill/uL (4.70-6.10); White Blood Cell (WBC) Count 6.2 thou/uL (4.8-10.8)
[2018-11-17 11:12] LABS: Band 3 % (5-11); Lymphocytes 21 % (21-51); MDiff Complete? YES; Monocytes 2 % (0-10); Neutrophil 74 % (42-75); RBC Morphology Normal
--- NOTE | 2018-11-17 12:25 | PRG ---
DATE OF SERVICE: 11/17/2018 SERVICE: Pulmonary Medicine. INTERVAL HISTORY: The patient's mentation has actually improved a little bit. He is now attending. He focalizes to the right upper extremity. He will spontaneously move the right upper extremity and follow commands. He is also moving the bilateral lower extremities with command. I did not see him move his left upper extremity, though he does have some discomfort associated with noxious stimuli there. OBJECTIVE: VITAL SIGNS: Afebrile. Pulse 70, blood pressure 122/78, respirations 15, and saturation 100% on room air. GENERAL: The patient is awake and alert, in no apparent distress. LUNGS: Decent air entry. There is no prolonged expiratory phase or wheezing present. HEART: Normal rate and regular. ABDOMEN: Soft, nontender, and nondistended. Bowel sounds are positive. MUSCULOSKELETAL: No cyanosis or clubbing. No pitting in the bilateral lower extremities. LABORATORY DATA: WBC 6.2, hemoglobin 12.1, and platelets 217,000. There are 74% neutrophils with only 3% bands. Basic metabolic profile is completely unremarkable with a creatinine of 0.54. CSF from yesterday shows white blood cells are decreasing, red blood cells have increased, segmented neutrophils are 32%, which are precipitously downtrending. Total protein is still elevated. Blood cultures x2, Clostridium difficile antigen and toxin are negative. Previous bacterial cultures were growing Serratia marcescens. Staph epidermidis is growing in bloodstream. IMAGING DATA: EEG demonstrates an abnormal study because of diffuse slowing, but there are no epileptiform discharges noted. ASSESSMENT: 1. Meningitis, secondary to Serratia. 2. Bacteremia, secondary to Staphylococcus epidermidis, fairly resistant. 3. Meningioma, status post craniotomy with excision. 4. Hydrocephalus, status post external ventricular drain. DISCUSSION AND PLAN: The patient is doing fine from mentation standpoint. Supportive care will be continued. We have him on tube feeds. We will watch his sodiums to make certain they do not go in the wrong direction. Pulmonary Critical Care will continue to follow along while he remains in the ICU. Mobilization efforts, occupational therapy, and physical therapy will be continued. Job ID: [id number]
--- NOTE | 2018-11-17 12:28 | PRG ---
DATE OF SERVICE: 11/17/2018 This is Julius Smith PA-C dictating a report for Doug Mckeon MD. Mr. Tate is now postoperative day #9, having undergone left craniotomy wound washout. The patient's neurologic exam is improved today. Mr. Tate easily opens his eyes and is able to follow commands on the right. We sampled CSF fluid yesterday and the culture and Gram stain are negative, but otherwise the fluid appears to be clearing his infection. He remains on antibiotics per Dr. Valverde. The EVD is still set at zero and puts roughly 10 mL an hour. His ICPs have range from 1 to 2 over the past 24 hours. We have updated his Decadron to 4 mg q.6 hours, as a repeat head CT demonstrated some continued swelling into the left cerebellar region. The patient was having some cerebellar tremor in the right upper extremity, but does not appear to be having this today. He remains on levetiracetam 500 mg b.i.d. I had a long discussion with the patient's family at bedside. I have let them know that we are guarded, but optimistic in his recovery, but this will take a significant amount of time. Certainly, his CSF demonstrates that it is responding to antibiotics and although his neurologic exam is waxing and waning, perhaps this initiation of more Decadron will help in this regard. I do believe that he is suffering some encephalopathy rather than hydrocephalus as his ventricles are very well decompressed and his EVD remains in a good location based on CT scan and drain output. His white blood cell count is actually in the normal range at 6.2. His sodium is 138 today. Again, we remain cautiously optimistic, but I will continue to follow him. I should also note that he remains afebrile. Please call with any changes in the patient's neurologic status. Otherwise, the family is appreciative of our time and care. Job ID: [id number]
--- NOTE | 2018-11-17 12:31 | SPC ---
[facility] CVP LINE PICC INITAL >5: 11/17/2018 12:00 AM PROCEDURE: Peripherally placed 53 cm dual lumen PICC line. PICC Line Placement: The left arm was prepped and draped in sterile fashion. One percent lidocaine was used for local anesthetic. Under fluoroscopic and ultrasound guidance, the brachial vein was patent and accessed with a micropun cture needle. A guide wire was then advanced into the brachial vein. A vascular sheath was then a dvanced over a guide wire, and a dual lumen PICC line was trimmed. The PICC line was then advanced into the central venous system. A final placement film demonstrates the tip of the catheter termina keerthi in the caval-atrial junction. After confirmation of the catheter position, the catheter was sutured in place at the skin entry site . There was no immediate complication. IMPRESSION: Peripheral placement of a dual lumen power PICC line into the left brachial vein using fluoroscopic a nd ultrasound guidance.
[2018-11-17 16:39] LABS: Sodium 139 mmol/L (136-145)
--- NOTE | 2018-11-17 17:43 | PRG ---
DATE OF SERVICE: 11/17/2018 SUBJECTIVE: Mr. aTte is more alert. He is even having conversations, following commands, and answering questions. Still has an NG tube in place. OBJECTIVE: VITAL SIGNS: His vital signs show T-max 98.6, blood pressure 120/70, pulse 67. HEENT: Ocular movements, conjugate. Sclerae white. Pupils are 2 mm and reactive. Oral cavity moist. LUNGS: Symmetric, clear breath sounds. ABDOMEN: Soft and not distended. Valdez catheter in place. EXTREMITIES: He moves extremities. LABORATORY DATA: White cell count 6.2, hemoglobin 12, platelets 217, and creatinine 0.54. Spinal fluid culture with repeat sample from yesterday negative. The CSF shows some clear-cut improvement with CSF. WBCs down to only 9 from 91 when it was last checked. Segmented neutrophil percentage is down to 32%, clear-cut improvement. ASSESSMENT AND DISCUSSION: Meningioma with postop infection by Serratia marcescens, which required removal of hardware and washout. Still has a ventriculostomy in place. Had Staph epidermidis infection of his lines, those have been removed and infection treated, and he will be continuing on meropenem. PICC line in place and we will treat him for protracted periods of time. The end date of therapy will be probably around December 28 approximately. Monitor labs weekly, CBC, CRP, CMP, and hopefully the ventriculostomy be able to be removed soon. Job ID: [id number]
[2018-11-17] MEDS: Enoxaparin Sodium 40 MG/0.4 ML SYRINGE SC SCH (20:26)
[2018-11-17] MEDS: Atorvastatin Calcium 20 MG TAB PO SCH (20:26)
[2018-11-18 03:32] LABS: Vancomycin, Random 10.8 ug/mL (See Comment)
[2018-11-18] MEDS: HumaLOG 300 UNITS/3 ML VIAL SC PRN ×4 (04:42→22:54)
[2018-11-18] MEDS: Dexamethasone 4 mg/ml Vial SLOW IVP SCH ×4 (05:14→23:17)
[2018-11-18] MEDS: Meropenem 2 GM, Admixture Fee 1 EACH in Sodium Chloride 0.9% 100 ML IVPB SCH ×3 (08:03→23:17)
[2018-11-18] MEDS: Metoprolol Tartrate 50 MG TAB PO SCH ×2 (08:10→20:49)
[2018-11-18] MEDS: Amlodipine 10 MG TAB PO SCH (08:10)
[2018-11-18] MEDS: Sodium Chloride 0.9% (PF) 10 ML VIAL FS PRN (08:10)
[2018-11-18] MEDS: levETIRAcetam 500 mg/5 ml Oral Solution PER TUBE SCH ×2 (08:10→20:49)
[2018-11-18] MEDS: Pantoprazole 40 MG VIAL IVP SCH (08:10)
[2018-11-18 09:22] LABS: #Monocytes 0.3 thou/uL (0.11-0.59); #Neutrophils 6.6 thou/uL (1.40-6.50); %Basophils 0.1 % (0.0-1.0); %Eosinophils 0.4 % (0.0-10.0); %Lymphocytes 12.3 % (21.0-51.0); %Monocytes 4.1 % (0.0-10.0); %Neutrophils 83.1 % (42.0-75.0); Hemoglobin 12.5 g/dL (14.0-18.0); Mean Corpuscular HGB CONC 34.5 g/dL (32.0-36.0); Mean Corpuscular Hemoglobin 30.8 pg (27.0-31.0); Mean Corpuscular Volume 89.3 fL (78.0-98.0); Mean Platelet Volume 7.4 fL (7.4-10.4); Platelet Count 231 thou/uL (130-400); RBC Distribution Width 13.3 % (11.5-14.5); Red Blood Cell (RBC) Count 4.06 mill/uL (4.70-6.10); White Blood Cell (WBC) Count 7.9 thou/uL (4.8-10.8)
[2018-11-18 09:39] LABS: Anion Gap 13 mmol/L (10-20); BUN (Urea Nitrogen) 23 mg/dL (8.4-25.7); Calc. Creatinine Clearance 164 mL/min (70-130); Calcium 9.3 mg/dL (7.8-10.44); Carbon Dioxide 27 mmol/L (23-31); Chloride 106 mmol/L (98-107); Estimated GFR-MDRD Greater than 90; Glucose 192 mg/dL (80-115); Potassium 4.1 mmol/L (3.5-5.1); Sodium 142 mmol/L (136-145)
--- NOTE | 2018-11-18 09:51 | PRG ---
DATE OF SERVICE: SUBJECTIVE: Mr. Tate is hospital day 20. His EVD is open at zero and the most recent CSF culture from 2 days ago has negative Gram stain and no growth to date. We will follow up on it at 48-hour suri. My plan is if the CSF culture is negative, we will arrange for the beginning of the weaning process starting tomorrow by raising him to 5 cm of water over the weekend. Neurologically, his eyes are open and he follows commands. He has dysphonia and has a nasogastric feeding tube in place. Should it be necessary to place a PEG tube, I would be fine with this. I am optimistic at this point as his white count has remained in an acceptable level. He has been afebrile and we are in my opinion proceeding in the right direction. He remains on meropenem for Serratia and my hope is we can wean him from his external ventricular drain. I should note he has put out approximately 200 mL daily. We will continue to monitor this output and his neurological state. We will continue him on Decadron at 4 mg every 6 hours and wean him very slowly perhaps 1 mg per week. Job ID: [id number]
--- NOTE | 2018-11-18 10:38 | ULT ---
FUltrasound Doppler duplex venous bilateral lower extremities: 11/10/2018 HISTORY: 63-year-old mobile Courtney at increased risk of DVT. Dr. Yang notified Julius Smith via scrub nurse Aisha Blake of the DVT at 10:32 AM on 11/10/2018 TECHNIQUE: Grayscale, color-flow, and spectral analysis, of bilateral common femoral, profunda femoral, greater saphenous, femoral, popliteal, and posterior tibial, veins. FINDINGS: There is thrombosis, probably acute, causing decreased blood flow and noncompressibility, of the righ t common femoral vein. This clot propagates into the external iliac vein. There is no DVT in the righ t femoral, popliteal, or posterior tibial, veins. There is no DVT in any of the veins of the left low er extremity. IMPRESSION: Positive for acute deep venous thrombosis of the right common femoral vein and right external iliac v ein.
--- NOTE | 2018-11-18 17:06 | PRG ---
DATE OF SERVICE: 11/18/2018 SERVICE: Pulmonary Medicine. INTERVAL HISTORY: Mentation velazquez, the patient has not really made a significant change. He does not appear to be in any distress. He cannot provide additional elements of the history. Nursing reports no overnight events. Certainly, there were no overnight fevers. PHYSICAL EXAMINATION: VITAL SIGNS: Afebrile, pulse 92, blood pressure 108/73, respirations 18, saturation 100% on 3 L nasal cannula. HEENT: Normocephalic and atraumatic. Sclerae white. Conjunctivae pink. Oral mucosa is moist without lesions. LUNGS: Decent air entry. No prolonged expiratory phase. Rhonchi are present, but clear with cough. No wheezing. HEART: Normal rate, regular. ABDOMEN: Soft, nontender, and nondistended. Bowel sounds are positive. LABORATORY DATA: WBC 7.9, hemoglobin 12.5 and stable, platelets 231,000. Sodium 142, continuing to uptrend. Basic metabolic profile is otherwise unremarkable. IMAGING: Ultrasound of bilateral lower extremities demonstrates acute DVT in the right common femoral vein and right external iliac vein. ASSESSMENT: 1. Meningitis secondary to Serratia. 2. Bacteremia secondary to Staph epidermidis, status post full course of antibiotic. 3. Meningioma, status post craniotomy with excision. 4. Hydrocephalus, status post external ventricular drain. 5. Deep venous thrombosis. DISCUSSION AND PLAN: The patient is doing really well from a respiratory standpoint. At this point, we will continue surveillance through time. Once he can tolerate anticoagulation, he will require 3 months of therapy. If a filter is required, I would prefer it to be retrieved in a very short order. Job ID: [id number]
[2018-11-18] MEDS: Senokot S 8.6-50 MG TAB PER TUBE SCH (20:49)
[2018-11-18] MEDS: Atorvastatin Calcium 20 MG TAB PO SCH (20:49)
[2018-11-18] MEDS: Enoxaparin Sodium 40 MG/0.4 ML SYRINGE SC SCH (20:50)
[2018-11-19] MEDS: HumaLOG 300 UNITS/3 ML VIAL SC PRN ×2 (05:11→17:06)
[2018-11-19] MEDS: Dexamethasone 4 mg/ml Vial SLOW IVP SCH ×3 (05:11→17:09)
[2018-11-19 05:41] LABS: Anion Gap 9 mmol/L (10-20); BUN (Urea Nitrogen) 25 mg/dL (8.4-25.7); Calc. Creatinine Clearance 164 mL/min (70-130); Calcium 9.1 mg/dL (7.8-10.44); Carbon Dioxide 29 mmol/L (23-31); Chloride 106 mmol/L (98-107); Estimated GFR-MDRD Greater than 90; Glucose 183 mg/dL (80-115); Potassium 4.2 mmol/L (3.5-5.1); Sodium 140 mmol/L (136-145)
[2018-11-19] MEDS: Meropenem 2 GM, Admixture Fee 1 EACH in Sodium Chloride 0.9% 100 ML IVPB SCH ×2 (08:03→15:22)
[2018-11-19] MEDS: Polyethylene Glycol 3350 17 GM Packet PER TUBE SCH (08:11)
[2018-11-19] MEDS: Pantoprazole 40 MG VIAL IVP SCH (08:12)
[2018-11-19] MEDS: Senokot S 8.6-50 MG TAB PER TUBE SCH ×2 (08:12→21:03)
[2018-11-19] MEDS: Metoprolol Tartrate 50 MG TAB PO SCH ×2 (08:13→21:03)
[2018-11-19] MEDS: levETIRAcetam 500 mg/5 ml Oral Solution PER TUBE SCH ×2 (08:13→21:03)
[2018-11-19] MEDS: Amlodipine 10 MG TAB PO SCH (08:13)
[2018-11-19 09:32] LABS: #Eosinphils 0.1 thou/uL (0.0-0.7); #Lymphocytes 0.8 thou/uL (1.20-3.40); #Monocytes 0.3 thou/uL (0.11-0.59); #Neutrophils 6.2 thou/uL (1.40-6.50); %Eosinophils 0.7 % (0.0-10.0); %Lymphocytes 10.8 % (21.0-51.0); %Monocytes 4.5 % (0.0-10.0); %Neutrophils 84.1 % (42.0-75.0); Mean Corpuscular HGB CONC 33.5 g/dL (32.0-36.0); Mean Corpuscular Volume 92.5 fL (78.0-98.0); Mean Platelet Volume 7.6 fL (7.4-10.4); Platelet Count 232 thou/uL (130-400); RBC Distribution Width 13.4 % (11.5-14.5); Red Blood Cell (RBC) Count 3.88 mill/uL (4.70-6.10); White Blood Cell (WBC) Count 7.4 thou/uL (4.8-10.8)
--- NOTE | 2018-11-19 09:35 | CT ---
FExam: Noncontrast head CT COMPARISON: 11/16/2018 HISTORY: Altered mental status. Evaluate for intracranial hemorrhage. FINDINGS: Stable postoperative changes in the left posterior fossa. Stable hypoattenuation the left cerebellar hemisphere with punctate foci of air, unchanged. There is improved but persistent mild mass effect up on the fourth ventricle. There is interval increase in size of the ventricular system when compared t o the previous examination. Stable positioning of a PERIODONTAL ASSISTANT shunt catheter. No midline shift. Basilar cisterns are patent. Cerebral cortical pizano-white matter differentiation is preserved Stable postoperative changes in the left occipital bone. Persistent opacification of the left mastoid air cells. IMPRESSION: 1. Stable postoperative changes left posterior fossa. 2. Interval increase in size of the ventricular system appears stable positioning of the PERIODONTAL ASSISTANT shunt cat heter.
[2018-11-19] MEDS: Vancomycin HCl 1.5 GM in Sodium Chloride 0.9% 250 ML 300 ML IVPB SCH ×2 (09:54→21:03)
[2018-11-19 09:56] LABS: Anion Gap 12 mmol/L (10-20); BUN (Urea Nitrogen) 25 mg/dL (8.4-25.7); Calc. Creatinine Clearance 167 mL/min (70-130); Calcium 9.1 mg/dL (7.8-10.44); Carbon Dioxide 28 mmol/L (23-31); Chloride 106 mmol/L (98-107); Estimated GFR-MDRD Greater than 90; Glucose 192 mg/dL (80-115); Potassium 4.3 mmol/L (3.5-5.1); Sodium 142 mmol/L (136-145)
--- NOTE | 2018-11-19 11:25 | PRG ---
DATE OF SERVICE: 11/19/2018 SUBJECTIVE: Mr. 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 It is unfortunate because obviously, the patient will need external beam radiation therapy, but at this point, he continues to rubio multiple issues such as hydrocephalus, Serratia meningitis, even colonization with Staphylococcus epidermidis in one of his central lines and when we have dropped him down to monotherapy with meropenem, it appears if his neutrophils shift up higher and he clinically is not as responsive so as such we have started him back on vancomycin and continued meropenem. While he does not have leukocytosis and his CSF culture drawn a few days ago remains negative. Head CT given his decreased response of this morning demonstrates increase in his ventricular caliber compared to a couple of days ago. However, his EVD remains functional and has been set at 0 cm of water. His brain does not appear tight and the edema in his left cerebellar hemisphere appears to have responded quite well to Decadron. I suspect this is a combination of vasogenic edema from his tumor and his infection, which appears to be clearing successfully. The plan will be to keep his external ventricular drain open at 5 cm of water through the weekend and attempt to try and wean this next week. His wound remains dry and there will be periods when his eyes are open and he follows commands. When he does not have his eyes open and only will localize primarily with his right side, but occasionally with his left as well. His sodium remains stable at 142. He has a DVT in his right lower extremity and he has been on Lovenox as well. He also has an IVC filter in place. I will attempt to meet with the family again today to update them on the pathology in his hospital course. We met with him yesterday as well. Out team met with him yesterday as well. Obviously we were fighting a very aggressive tumor along with infection and DVT all of which have slowed the patient's progress. Job ID: [id number]
--- NOTE | 2018-11-19 12:43 | PRG ---
DATE OF SERVICE: 11/19/2018 SERVICE: Pulmonary Medicine. INTERVAL HISTORY: The patient is doing fine from respiratory standpoint. Yesterday, he was increasingly somnolent. This morning, he opened his eyes and attended. Otherwise, there has been no interval change to his condition. This morning, he was sent down for repeat CT of the head. There has been interval increase in size of ventricular system with stable positioning of the MANAGER STAFFING shunt. PHYSICAL EXAMINATION: VITAL SIGNS: Afebrile. Pulse 91, blood pressure 129/87, respirations 25, saturation 100% on 3 L nasal cannula. GENERAL: The patient is awake and alert, in no apparent distress. LUNGS: Decent air entry. There is rhonchi present that clear with cough. No prolonged expiratory phase or wheezing is appreciated. HEART: Normal rate and regular. ABDOMEN: Soft, nontender, nondistended. Bowel sounds are positive. MUSCULOSKELETAL: No cyanosis or clubbing. No pitting in the bilateral lower extremities. NEUROLOGIC: Grossly nonfocal. LABORATORY DATA: WBC 7.4, hemoglobin 12.0, platelets 232,000. Glucose 146. Basic metabolic profile is otherwise unremarkable. Sodium is 142. Blood cultures x2, body fluid culture, and C. diff antigen and toxin are all unremarkable. ASSESSMENT: 1. Meningitis secondary to Serratia. 2. Bacteremia secondary to Staph epidermidis, status post full course of antibiotic. 3. Meningioma, status post craniotomy with excision. 4. Hydrocephalus, status post EVD. 5. Deep venous thrombosis. DISCUSSION AND PLAN: The patient is doing okay at this point. He is not tolerating having a MANAGER STAFFING shunt closed. He will remain in the ICU for the time being. Pulmonary/Critical Care will continue to follow in this location. At this point, supportive measures will be continued. Job ID: [id number]
--- NOTE | 2018-11-19 17:20 | PRG ---
DATE OF SERVICE: 11/19/2018 SUBJECTIVE: Mr. Tate is less responsive today. He had a CT scan which showed some worsening ventriculomegaly. Vancomycin was restarted. He still has the ventriculostomy drain in place. OBJECTIVE: VITAL SIGNS: He has been afebrile and other vital signs are not remarkable. HEENT: His eye movements are midline, conjugate. Pupils are 1 mm, reactive. LUNGS: Symmetric air entry. HEART: S1 and S2, regular rate. ABDOMEN: Soft, not distended. EXTREMITIES: The patient has peripheral IV access. LABORATORY DATA: White cell count 7.4, hemoglobin 12, and platelets 232. Creatinine 0.55. Repeat blood cultures from November 11, no growth in 5 days and repeat CSF culture negative thus far. ASSESSMENT AND DISCUSSION: Brain tumor associated with meningeal membranes, but according to Dr. Mckeon's communication with [facility], the nature of the malignant cells is not very clear, seemed to be highly aggressive though, which means undifferentiated. This is a harbinger of a poor outcome in the medium term. I believe the infectious process is better controlled now, and we will continue with the regimen. Job ID: [id number]
[2018-11-19] MEDS: Enoxaparin Sodium 40 MG/0.4 ML SYRINGE SC SCH (21:03)
[2018-11-19] MEDS: Atorvastatin Calcium 20 MG TAB PO SCH (21:03)
[2018-11-20] MEDS: Meropenem 2 GM, Admixture Fee 1 EACH in Sodium Chloride 0.9% 100 ML IVPB SCH ×4 (01:12→23:29)
[2018-11-20] MEDS: Dexamethasone 4 mg/ml Vial SLOW IVP SCH ×5 (01:12→23:29)
[2018-11-20 05:29] LABS: #Lymphocytes 0.9 thou/uL (1.20-3.40); #Monocytes 0.4 thou/uL (0.11-0.59); #Neutrophils 6.2 thou/uL (1.40-6.50); %Eosinophils 0.3 % (0.0-10.0); %Lymphocytes 11.9 % (21.0-51.0); %Monocytes 5.1 % (0.0-10.0); %Neutrophils 82.7 % (42.0-75.0); Hemoglobin 11.9 g/dL (14.0-18.0); Mean Corpuscular HGB CONC 33.9 g/dL (32.0-36.0); Mean Corpuscular Hemoglobin 31.4 pg (27.0-31.0); Mean Corpuscular Volume 92.6 fL (78.0-98.0); Mean Platelet Volume 7.4 fL (7.4-10.4); Platelet Count 211 thou/uL (130-400); RBC Distribution Width 13.2 % (11.5-14.5); Red Blood Cell (RBC) Count 3.79 mill/uL (4.70-6.10); White Blood Cell (WBC) Count 7.5 thou/uL (4.8-10.8)
[2018-11-20] MEDS: HumaLOG 300 UNITS/3 ML VIAL SC PRN ×3 (05:42→18:10)
[2018-11-20 05:51] LABS: Anion Gap 11 mmol/L (10-20); BUN (Urea Nitrogen) 24 mg/dL (8.4-25.7); Calc. Creatinine Clearance 181 mL/min (70-130); Carbon Dioxide 29 mmol/L (23-31); Chloride 105 mmol/L (98-107); Estimated GFR-MDRD Greater than 90; Glucose 216 mg/dL (80-115); Potassium 4.3 mmol/L (3.5-5.1); Sodium 141 mmol/L (136-145)
[2018-11-20] MEDS: Pantoprazole 40 MG VIAL IVP SCH (08:04)
[2018-11-20] MEDS: Senokot S 8.6-50 MG TAB PER TUBE SCH ×2 (08:10→20:01)
[2018-11-20] MEDS: Metoprolol Tartrate 50 MG TAB PO SCH ×2 (08:10→20:01)
[2018-11-20] MEDS: Amlodipine 10 MG TAB PO SCH (08:10)
[2018-11-20] MEDS: Polyethylene Glycol 3350 17 GM Packet PER TUBE SCH (08:11)
[2018-11-20] MEDS: levETIRAcetam 500 mg/5 ml Oral Solution PER TUBE SCH ×2 (08:11→20:01)
[2018-11-20] MEDS: Vancomycin HCl 1.5 GM in Sodium Chloride 0.9% 250 ML 300 ML IVPB SCH (08:46)
[2018-11-20] MEDS ORDERED: Labetalol HCl 100 MG/20 ML VIAL SLOW IVP PRN (09:36)
[2018-11-20] MEDS ORDERED: hydrALAZINE 20 MG/ML VIAL SLOW IVP PRN (09:36)
--- NOTE | 2018-11-20 09:48 | PRG ---
DATE OF SERVICE: 11/20/2018 SERVICE: Pulmonary Medicine. INTERVAL HISTORY: The patient is doing okay from mentation standpoint. He is about stable compared to yesterday. Occasionally, he will open up his eyes spontaneously. When we stimulate him, he will attend. Otherwise, there has been no interval change to his condition. PHYSICAL EXAMINATION: VITAL SIGNS: Afebrile. Pulse 88, blood pressure 122/75, respirations 25, saturation 98% on room air. GENERAL: The patient is awake and alert, in no apparent distress. LUNGS: Decent air entry. I do not appreciate rhonchi or crackles today. HEART: Normal rate and regular. ABDOMEN: Soft, nontender, nondistended. Bowel sounds are positive. MUSCULOSKELETAL: No cyanosis or clubbing. There is no pitting in the bilateral lower extremities. NEUROLOGIC: Grossly nonfocal. He moves his bilateral lower extremities with purposeful movement. Withdraw from noxious stimuli to the right upper extremity. He does not withdraw from discomfort in the left upper extremity. His mentation is depressed. LABORATORY DATA: WBC 7.5, hemoglobin 11.9, platelets 211,000. Sodium 141,. Basic metabolic profile is otherwise unremarkable. Bicarb is 29 and stable. Blood cultures x2, body fluid culture is negative. C. diff antigen and toxin was previously unremarkable. ASSESSMENT: 1. Meningitis secondary to Serratia. 2. Bacteremia secondary to Staph epidermidis, status post full course of antibiotic. 3. Meningioma, status post craniotomy with excision. 4. Hydrocephalus, status post EVD. 5. Deep venous thrombosis. DISCUSSION AND PLAN: The patient is going to remain in the ICU for the time being. GI consultation will be placed to discuss PEG tube placement to give the patient's brain more time to wake up. We will give a laboratory holiday in the morning. Pulmonary/Critical Care will continue to follow along in this location. We will continue our supportive measures through time. Job ID: [id number]
--- NOTE | 2018-11-20 09:59 | PRG ---
DATE OF SERVICE: 11/20/2018 The patient is a 63-year-old male, status post left proximal sigmoid resection of a posterior fossa lesion, currently hospital day #22. This was complicated by development of hydrocephalus, Serratia meningitis and colonization with Staph epidermidis in the central line. He is currently being treated with IV antibiotics as well as having EVD placed for his hydrocephalus. Neurosurgery has recently began to wean his EVD and is currently set at 5 cm of water. No acute changes overnight. He has had approximately 3 to 6 mL of CSF out per hour. His ICP is averaging around 6. He has a normal sodium and potassium today. His white count is also normal. He has been afebrile overnight. His vitals are stable. On exam this morning, the patient will open his right eye to noxious stimulation as well as localizes with his left upper extremity. We will plan to leave the drain at 5 cm of water through the weekend and continue to monitor the patient closely and the family was updated. Job ID: [id number]
--- NOTE | 2018-11-20 16:37 | CON ---
DATE OF CONSULTATION: 11/20/2018 REASON FOR CONSULTATION: Oropharyngeal dysphagia. CONSULTING PHYSICIAN: Chuckie Hines MD. HISTORY OF PRESENT ILLNESS: The patient is a 63-year-old male with past medical history of meningioma status post resection that has been complicated by Serratia meningitis; hydrocephalus status post drain; hypertension; hyperlipidemia, presenting with oropharyngeal dysphagia. The patient recently underwent craniotomy and resection of a posterior fossa meningioma and was being evaluated in the outpatient clinic, but given decline in his clinical status, he was ultimately transferred to the hospital for further evaluation. While here in the hospital, his hospital course has been complicated by Serratia meningitis, hydrocephalus that required placement of a drain and bacteremia. Over the last few days, the patient has been fairly somnolent and has responded minimally to verbal stimuli, but has responded well to tactile/noxious stimuli. However, at this point in time, he is unable to follow commands to further evaluate his swallowing via bedside swallow study and he is currently receiving nutrition via Dobhoff tube via the left naris. Given his current clinical status and likelihood of inability to tolerate adequate oral intake for sufficient nutrition, the Gastroenterology Service was consulted for possible PEG tube placement. Currently, upon interviewing the patient, he was unable to contribute any meaningful information to the conversation, and in fact, was very somnolent throughout the course of the interview with most information obtained through chart review and discussion with family at bedside. REVIEW OF SYSTEMS: A 10-category review of systems could not be obtained due to the patient's somnolence and current altered mental status. PAST MEDICAL HISTORY: As per HPI. PAST SURGICAL HISTORY: Meningioma resection with hydrocephalus with lumbar drain placement. FAMILY HISTORY: Denies any GI malignancies. SOCIAL HISTORY: Denies any tobacco, alcohol, or illicit drug use. OUTPATIENT MEDICATIONS: Reviewed. ALLERGIES: NO KNOWN DRUG ALLERGIES. PHYSICAL EXAMINATION: VITAL SIGNS: Temperature 98.4, pulse 90, blood pressure 111/75, respiratory rate 19, saturating 98% on room air. GENERAL: The patient is lying in bed, in no acute distress. Somnolent throughout the course of the interview. He is not alert or oriented. HEENT: Normocephalic with craniotomy excision site seen in the right occipital region. NECK: Supple. No JVD or scleral icterus noted. CARDIOVASCULAR: Regular rate and rhythm with no discernible murmurs, gallops, or rubs. RESPIRATORY: Clear to auscultation bilaterally with no discernible wheezes or rales. ABDOMEN: Normoactive bowel sounds. Soft, nontender, nondistended. EXTREMITIES: No cyanosis, clubbing, or edema. LABORATORY DATA: CBC with a white blood cell count of 7.5, hemoglobin 11.9, hematocrit 35.1, platelets 211. INR 1.0. Chemistry with a sodium of 141, potassium 4.3, chloride 105, CO2 of 29, BUN 24, creatinine 0.51, glucose 216. IMAGING DATA: No current GI imaging is available for review. ASSESSMENT AND PLAN: The patient is a 63-year-old male with past medical history of meningioma status post resection, hypertension, and hyperlipidemia, presenting with complicated hospital course with Serratia meningitis, hydrocephalus status post drain placement and bacteremia along with oropharyngeal dysphagia. Oropharyngeal dysphagia. The patient is presenting with a recent history of any meningioma excision and has had a fairly complicated hospital course given the occurrence of Serratia meningitis, hydrocephalus, and bacteremia. At the current time, the patient is unable to tolerate an adequate amount of nutrition via an enteral route and has been unable to comply with bedside swallow study in order to evaluate his swallowing ability. At this point, he has an element of oropharyngeal dysphagia and coupled with a [id number] protein calorie malnutrition given his inability to tolerate oral intake and would benefit from placement of a percutaneous gastrostomy tube to further supplement his nutrition. Upon speaking with the patient's medical power of employment law attorney (the patient's ), she would like to be here for the actual procedure itself, but was unable to be able to come tomorrow. Given the non-emergent nature of this particular procedure to place the PEG tube, we will plan for placement on November 22. RECOMMENDATIONS: 1. Would continue n.p.o. status with nutritional feeds via the Dobhoff tube in the left naris. 2. We will plan for EGD with percutaneous gastrostomy tube placement on November 22. We will continue to follow. Please call with any questions. Job ID: [id number]
[2018-11-20] MEDS: Atorvastatin Calcium 20 MG TAB PO SCH (20:01)
[2018-11-20] MEDS: Enoxaparin Sodium 40 MG/0.4 ML SYRINGE SC SCH (20:01)
[2018-11-20 20:21] LABS: Vancomycin, Trough 14.3 ug/mL
[2018-11-20] MEDS: Vancomycin HCl 1.75 GM in Sodium Chloride 0.9% 500 ML IVPB SCH (21:22)
[2018-11-21] MEDS: HumaLOG 300 UNITS/3 ML VIAL SC PRN ×5 (00:08→23:50)
[2018-11-21] MEDS: Dexamethasone 4 mg/ml Vial SLOW IVP SCH ×4 (05:31→23:44)
--- NOTE | 2018-11-21 06:56 | PRG ---
DATE OF SERVICE: 11/21/2018 Mr. Tate this morning will not open his eyes, but does mumble words including hello. His EVD is functional and draining clear CSF. He has been hemodynamically stable. We will continue with maximal medical support including the antibiotics and we will continue with ventriculostomy at the 5 cm of water that is currently set. Job ID: [id number]
[2018-11-21] MEDS: Senokot S 8.6-50 MG TAB PER TUBE SCH (07:29)
[2018-11-21] MEDS: Meropenem 2 GM, Admixture Fee 1 EACH in Sodium Chloride 0.9% 100 ML IVPB SCH ×3 (07:56→23:44)
--- NOTE | 2018-11-21 08:27 | PRG ---
DATE OF SERVICE: 11/21/2018 SERVICE: Pulmonary Medicine. INTERVAL HISTORY: The patient is doing fine from respiratory standpoint. He breathing is comfortably. Otherwise, there has been no interval change to his condition. He is following some commands from time to time. There has been no robust change to his neurologic activity. Consultation for Gastroenterology has been placed. At some point, PEG tube will be performed, but there is no sheth on this procedure certainly. OBJECTIVE: VITAL SIGNS: Afebrile. Pulse 94, blood pressure 122/72, respirations 22, and saturation 99% on room air. GENERAL: The patient is somnolent. HEENT: Normocephalic and atraumatic. Ventriculostomy drain is in place. Oral mucosa are moist without lesions. HEART: Normal rate and regular. ABDOMEN: Soft, nontender, and nondistended. Bowel sounds are positive. MUSCULOSKELETAL: No cyanosis or clubbing. No pitting in the bilateral lower extremities. ASSESSMENT: 1. Meningioma, status post craniotomy with excision. 2. Meningitis secondary to Serratia. 3. Bacteremia secondary to Staphylococcus epidermidis, status post full course of antibiotic. 4. Hydrocephalus, status post external ventricular drain. 5. Deep venous thrombosis. DISCUSSION AND PLAN: The patient will be continued on his current therapies. As soon as he is a candidate for anticoagulation, three months needs to be initiated. We will follow labs every other day. We are going to follow his neurologic status very closely. Once the PEG tube is in place, and EVD is removed without deterioration in his neurologic status, will be a candidate for transition to an LTAC facility. Job ID: [id number]
[2018-11-21] MEDS: Amlodipine 10 MG TAB PO SCH (08:41)
[2018-11-21] MEDS: Polyethylene Glycol 3350 17 GM Packet PER TUBE SCH (08:41)
[2018-11-21] MEDS: levETIRAcetam 500 mg/5 ml Oral Solution PER TUBE SCH ×2 (08:41→20:03)
[2018-11-21] MEDS: Metoprolol Tartrate 50 MG TAB PO SCH ×2 (08:41→20:03)
[2018-11-21] MEDS: Vancomycin HCl 1.75 GM in Sodium Chloride 0.9% 500 ML IVPB SCH ×2 (08:42→20:03)
[2018-11-21] MEDS: Pantoprazole 40 MG VIAL IVP SCH (08:42)
[2018-11-21] MEDS ORDERED: Enoxaparin Sodium 80 MG/0.8 ML SYRINGE SC SCH (09:00)
[2018-11-21] MEDS: Atorvastatin Calcium 20 MG TAB PO SCH (20:03)
--- NOTE | 2018-11-21 23:32 | PRG ---
DATE OF SERVICE: 11/21/2018 REASON FOR CONSULTATION: Oropharyngeal dysphagia, moderate protein calorie malnutrition. SUBJECTIVE: There were no acute events or problems overnight per nursing staff as the patient is minimally responsive to verbal stimuli. Per nursing staff, there has been no evidence of vomiting, fevers, chills, grimacing with abdominal pressures/palpation, diarrhea, or constipation. OBJECTIVE: VITAL SIGNS: Temperature 98.6, pulse 76, blood pressure 116/71, respiratory rate 22, saturating 96% on room air. GENERAL: The patient was lying in bed, in no acute distress. Minimally responsive to verbal stimuli, but does respond somewhat to noxious stimuli. CARDIOVASCULAR: Regular rate and rhythm. RESPIRATORY: Clear to auscultation bilaterally. ABDOMEN: Normoactive bowel sounds. Soft, nontender, nondistended. EXTREMITIES: No cyanosis, clubbing, or edema. LABORATORY DATA: No current studies are available for review. IMAGING DATA: No current studies are available for review. ASSESSMENT AND PLAN: The patient is a 63-year-old male, with past medical history of meningioma status post resection, hypertension, hyperlipidemia, presenting with a complicated course with Serratia meningitis, hydrocephalus status post drain placement, and bacteremia along with oropharyngeal dysphagia resulting in moderate protein calorie malnutrition. Oropharyngeal dysphagia. The patient is presenting with a recent history of meningioma excision and has had a fairly complicated hospital course given the occurrence of Serratia meningitis, hydrocephalus, and bacteremia. At the current time, he is unable to tolerate any adequate amount of nutrition via an enteral route and would therefore benefit from percutaneous gastrostomy tube placement. RECOMMENDATIONS: 1. We would hold any tube feeds via the Dobhoff tube tonight in anticipation for EGD tomorrow morning. 2. We will plan for EGD with PEG tube placement tomorrow. 3. Please hold any anticoagulation tonight as well (Lovenox). We will continue to follow. Please call with any questions. Job ID: [id number]
[2018-11-22] MEDS: Dexamethasone 4 mg/ml Vial SLOW IVP SCH ×3 (05:53→17:59)
[2018-11-22] MEDS: Metoprolol Tartrate 50 MG TAB PO SCH ×2 (06:10→20:43)
[2018-11-22] MEDS: levETIRAcetam 500 mg/5 ml Oral Solution PER TUBE SCH (06:10)
[2018-11-22] MEDS: Amlodipine 10 MG TAB PO SCH (06:10)
[2018-11-22] MEDS: HumaLOG 300 UNITS/3 ML VIAL SC PRN ×3 (06:15→22:28)
[2018-11-22] MEDS: Meropenem 2 GM, Admixture Fee 1 EACH in Sodium Chloride 0.9% 100 ML IVPB SCH ×2 (07:11→16:50)
[2018-11-22 07:21] LABS: #Lymphocytes 1.1 thou/uL (1.20-3.40); #Monocytes 0.5 thou/uL (0.11-0.59); #Neutrophils 6.1 thou/uL (1.40-6.50); %Basophils 0.5 % (0.0-1.0); %Eosinophils 0.5 % (0.0-10.0); %Lymphocytes 14.3 % (21.0-51.0); %Monocytes 5.7 % (0.0-10.0); Hemoglobin 12.2 g/dL (14.0-18.0); Mean Corpuscular HGB CONC 33.1 g/dL (32.0-36.0); Mean Corpuscular Hemoglobin 30.1 pg (27.0-31.0); Mean Platelet Volume 7.6 fL (7.4-10.4); Platelet Count 181 thou/uL (130-400); RBC Distribution Width 13.1 % (11.5-14.5); Red Blood Cell (RBC) Count 4.05 mill/uL (4.70-6.10); White Blood Cell (WBC) Count 7.8 thou/uL (4.8-10.8)
[2018-11-22 07:35] LABS: Vancomycin, Trough 17.3 ug/mL
[2018-11-22 07:44] LABS: Anion Gap 10 mmol/L (10-20); BUN (Urea Nitrogen) 24 mg/dL (8.4-25.7); Calc. Creatinine Clearance 190 mL/min (70-130); Carbon Dioxide 29 mmol/L (23-31); Chloride 104 mmol/L (98-107); Estimated GFR-MDRD Greater than 90; Glucose 161 mg/dL (80-115); Magnesium 2.3 mg/dL (1.6-2.6); Phosphorus 2.9 mg/dL (2.3-4.7); Potassium 4.4 mmol/L (3.5-5.1); Sodium 139 mmol/L (136-145)
[2018-11-22] MEDS: Polyethylene Glycol 3350 17 GM Packet PER TUBE SCH (09:00)
--- NOTE | 2018-11-22 09:16 | PRG ---
DATE OF SERVICE: 11/22/2018 This is Julius Smith PA-C dictating a report for Doug Mckeon MD. Mr. Tate is now hospital day #24 and 14-day postop, having undergone cranial wound washout. Currently, the patient's neurologic exam continues to wax and wane. He is sleeping comfortably and awaken to command. However, the night nurse notes the patient intermittently verbalize and follow commands, but moves all extremities. He is on his way to get a PEG tube due to swallowing difficulties and need for parenteral nutrition. We will continue to follow him, although we closely watch him. However, he has remained afebrile with ICP range on average around 4 and output between 0 and 5 mL/h set at 5 cm of water. He remains on Decadron and we may begin to taper that slowly later this week. He remains on antibiotics and his white blood cell count remains stable at 7.9. We will recheck his sodium today. Otherwise, please call with any changes in the patient's neurologic status. Job ID: [id number]
[2018-11-22] MEDS: Pantoprazole 40 MG VIAL IVP SCH (09:29)
[2018-11-22] MEDS: Vancomycin HCl 1.75 GM in Sodium Chloride 0.9% 500 ML IVPB SCH ×2 (09:29→20:44)
[2018-11-22] MEDS: Sodium Chloride 0.9% (PF) 10 ML VIAL FS PRN (09:30)
--- NOTE | 2018-11-22 10:17 | OP ---
DATE OF PROCEDURE: 11/22/2018 PROCEDURE PERFORMED: Esophagogastroduodenoscopy with percutaneous endoscopic gastrostomy tube placement. INDICATIONS FOR PROCEDURE: Oropharyngeal dysphagia, mild protein calorie malnutrition. DESCRIPTION OF PROCEDURE: After the risks and benefits of the procedure were explained to the patient's surrogate including risks of bleeding, infection, perforation, reactions to anesthesia, aspiration and/or pain, informed consent was obtained. The patient was then taken to the endoscopy suite, where deep sedation was administered via propofol and anesthesia support. Once adequate sedation was achieved, the standard gastroscope was introduced into the mouth with intubation of the esophagus, stomach, and the proximal small intestine with the findings listed below. Upon initial evaluation of the upper GI tract mucosa, the site for the PEG tube placement was then determined using one-to-one compression and transillumination. A site within the anterior portion of the stomach and the left upper quadrant of the anterior abdominal wall was chosen using a small aspiration needle, installation of 2% lidocaine was then instilled underneath the skin and a wheal formation as part of local anesthesia. Once the wheal was formed, the needle was then placed perpendicular to the skin and advanced into the stomach with back pressure as the needle was advanced. Upon withdrawal of the needle, the remainder of this lidocaine was instilled into the anterior abdominal wall. Then, using a small scalpel, a 1 cm vertical incision was made into the skin with minimal oozing of blood. Using a larger finder needle passed, it was then advanced into the stomach with a guidewire then placed through the needle and retrieved on the other end via the endoscope and a snare. The guidewire was then withdrawn through the upper GI tract via the endoscope and out through the mouth. The guidewire was then affixed to a 20-Greek [employer] percutaneous gastrostomy tube, and using a push technique was then advanced into the stomach through the anterior abdominal wall. The external bumper was then affixed to the PEG tube and the PEG tube was cut to length. A second-look endoscopy was then performed with evaluation of the PEG tube with good positioning within the greater curvature of the stomach. At that point, all other equipment was removed from the patient and the procedure was terminated with the patient taken back to CCU for further care. Upon completion of the procedure, the patient was discharged in satisfactory condition. FINDINGS: Esophagus: Normal-appearing mucosa was seen in the proximal, mid, and distal esophagus. There was no evidence of erosions, ulcerations, mass, lesions, or active/recent bleeding. Stomach: Normal-appearing mucosa. Actually, a [id number] amount of congealed tube feedings were seen in the gastric cardia and antrum, but were easily suctioned using the gastroscope with the underlying mucosa visualized. Normal-appearing mucosa was seen in the gastric cardia, fundus, body, greater curvature, antrum, and incisura. There was no evidence of erosions, ulcerations, mass, lesions, or active/recent bleeding. Percutaneous gastrostomy tube was placed along the anterior gastric wall with the procedure further described above. Duodenum: Normal-appearing mucosa was seen in both the duodenal bulb and second portion of the duodenum. There was no evidence of erosions, ulcerations, mass, lesions, or active/recent bleeding. IMPRESSION: 1. Successful placement of a [employer] 20-Greek percutaneous gastrostomy tube. 2. Normal upper endoscopy. RECOMMENDATIONS: 1. Would hold on using the PEG tube for the next 6 hours for evaluation of any postprocedural complications. 2. If no postprocedural complications are noted, then I would restart tube feeds through the percutaneous gastrostomy tube per dietary protocol. 3. Would maintain adequate PEG tube care at all times per protocol. 4. We will continue to follow. Please call with any questions. Job ID: [id number]
--- NOTE | 2018-11-22 15:21 | PRG ---
DATE OF SERVICE: 11/22/2018 SERVICE: Pulmonary Medicine. INTERVAL HISTORY: The patient is doing really well from respiratory standpoint. Mentation velazquez, he has just gotten back from his PEG tube. As such, he is less responsive than typical. He cannot provide any additional elements of the history. Nursing reports no overnight events, however. There are certainly no fevers. PHYSICAL EXAMINATION: VITAL SIGNS: Afebrile, pulse 82, blood pressure 120/83, respirations 14, saturation 100% on room air. GENERAL: The patient is awake and alert, in no apparent distress. LUNGS: Excellent air entry. There are some rhonchi present. Most of which is transmitted from the upper airway. No prolonged expiratory phase or wheezing. The demonstration states respiratory pattern of breathing, but this does not translate into any degree of desaturation on room air. HEART: Normal rate and regular. ABDOMEN: Soft, nontender, nondistended. Bowel sounds are positive. MUSCULOSKELETAL: No cyanosis or clubbing. No pitting in the bilateral lower extremities. LABORATORY DATA: WBC 7.5, hemoglobin 12.2, platelets 181,000. Magnesium, phosphorus, and basic metabolic profile are essentially unremarkable. Blood cultures x4 and C. diff antigen and toxin are most recently unremarkable. Recent CSF fluid is sterile. ASSESSMENT: 1. Meningioma, status post craniotomy with excision. 2. Meningitis secondary to Serratia. 3. Bacteremia secondary to Staphylococcus epidermidis, status post full course of antibiotic. 4. Hydrocephalus, status post external ventricular drain. 5. Deep venous thrombosis. DISCUSSION AND PLAN: The patient is doing fine from respiratory standpoint. As soon as Mr. Ttae can tolerate full-dose anticoagulation, this would certainly be indicated. He will remain in the ICU for the time being. Once the EVD is out and/or the patient has a HEATSET WINDER OPERATOR shunt, he will be stable for transition out of the hospital to an LTAC facility. Pulmonary Critical Care will continue to follow along in this location. Job ID: [id number]
[2018-11-22] MEDS ORDERED: PROPOFOL 200 MG/20 ML VIAL ONE (15:59)
[2018-11-22] MEDS: Enoxaparin Sodium 40 MG/0.4 ML SYRINGE SC SCH (20:43)
[2018-11-22] MEDS: Atorvastatin Calcium 20 MG TAB PO SCH (20:43)
[2018-11-23] MEDS: Dexamethasone 4 mg/ml Vial SLOW IVP SCH ×4 (00:21→17:34)
[2018-11-23] MEDS: Meropenem 2 GM, Admixture Fee 1 EACH in Sodium Chloride 0.9% 100 ML IVPB SCH ×3 (00:24→16:53)
[2018-11-23] MEDS: HumaLOG 300 UNITS/3 ML VIAL SC PRN ×5 (00:36→21:02)
[2018-11-23] MEDS: Amlodipine 10 MG TAB PO SCH (08:08)
[2018-11-23] MEDS: Pantoprazole 40 MG VIAL IVP SCH (08:09)
[2018-11-23] MEDS: Polyethylene Glycol 3350 17 GM Packet PER TUBE SCH (08:09)
[2018-11-23] MEDS: Metoprolol Tartrate 50 MG TAB PO SCH ×2 (08:09→20:48)
[2018-11-23] MEDS: Vancomycin HCl 1.75 GM in Sodium Chloride 0.9% 500 ML IVPB SCH ×2 (08:19→20:48)
--- NOTE | 2018-11-23 09:06 | PRG ---
DATE OF SERVICE: 11/23/2018 This is Julius Smith PA-C dictating a report for Doug Mckeon MD. Mr. Tate is now hospital day #25 and 15 days postop from undergoing left cranial wound washout. He remains afebrile and his EVD is working well within the range of 1 to 8 with a maximum of 22. ICPs have been 7 or less over the past several hours. We have decreased his Decadron to 3 mg q.6 hours. We have also discontinued his Keppra and he remains on meropenem and vancomycin. His blood cultures are preliminarily negative. His EVD has been at 10 cm of water and our plan today will be to raise it later today to 15 cm of water. He remains very sleepy on my exam. Although per report, he moves the right side greater than the left and was up in the neuro chair yesterday. He remains nonverbal. We will continue to monitor his neurologic status and he does continue to wax and wane and I believe that this is essentially due to encephalopathy rather than a structural pathology. We have to wean him off his EVD by the end of this week. Please call with any changes in the patient's neurologic status. Job ID: [id number]
--- NOTE | 2018-11-23 10:31 | PRG ---
DATE OF SERVICE: 11/23/2018 SERVICE: Pulmonary Medicine. INTERVAL HISTORY: The patient is doing fine from respiratory standpoint. Breathing comfortably. There has been no interval change to his condition. Mentation velazquez, things are about stable. His ventriculostomy drain has been increased to 10 cm of water pressure. He is having very little output from this device. PHYSICAL EXAMINATION: VITAL SIGNS: Afebrile, pulse 77, blood pressure 132/82, respirations 14, and saturation 100% on room air. GENERAL: The patient is awake and alert, in no apparent distress. LUNGS: Decent air entry without any prolonged expiratory phase or wheezing present. HEART: Normal rate and regular. ABDOMEN: Soft, nontender, and nondistended. Bowel sounds are positive. MUSCULOSKELETAL: No cyanosis or clubbing. There is no pitting in the bilateral lower extremities. ASSESSMENT: 1. Meningioma, status post excision. 2. 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 3. Bacteremia secondary to Staph epidermidis, status post full course of antibiotics. 4. Hydrocephalus, status post EVD. 5. Deep venous thrombosis, in need of full-dose anticoagulation once drain is removed. 6. Status post PEG tube. DISCUSSION AND PLAN: The patient will remain in the ICU. Once the external ventricular drain has been removed, the patient will be stable for transition out of the hospital to an LTAC facility. Pulmonary Critical Care will follow in this location. We are getting labs every other day or sooner if dictated by symptoms. Job ID: [id number]
--- NOTE | 2018-11-23 11:14 | PRG ---
DATE OF SERVICE: 11/22/2018 SUBJECTIVE: Lea is not responsive, does not open his eyes, does not follow commands and he has been afebrile. Other vital signs are normal. Pupils are equal. The patient has roving eye movements, but no nystagmus. Still has a percutaneous ventriculostomy. Lungs with symmetrical breath sounds. S1-S2 regular rate. Abdomen is soft. Peripheral IV access, diffuse stiffness. Plantar responses are extensor , right and left side. There is no clonus. LABORATORY DATA: White cell count 7.8, hemoglobin 12, platelets 181. Creatinine 0.48. Repeat blood cultures, no growth on November 19. CSF final results negative for cultures. The patient had a gastrostomy tube placed. ASSESSMENT AND DISCUSSION: Aggressive brain tumor, associated meningeal membranes. The nature of the malignant cells not very clear, but very aggressive and he developed Serratia marcescens infection of the operative site. He also had coagulase-negative Staph bacteremia probably from the central line. At this point that bacteremia has resolved. I would advise continuation with meropenem without any other antimicrobials. The overall prognosis are poor in terms of recovery of functional activity and also in view of the aggressive nature of the underlying tumor. Job ID: [id number] [facility]
--- NOTE | 2018-11-23 18:33 | PRG ---
DATE OF SERVICE: 11/23/2018 REASON FOR CONSULTATION: Oropharyngeal dysphagia, moderate protein calorie malnutrition. SUBJECTIVE: Per nursing staff, the patient had been doing well with no acute events or problems overnight. Per family, the patient had been sitting up in the bedside chair and was awake for portion of the day today, but was not alert and not responding to verbal stimuli. Per nursing staff, there has been no evidence of vomiting, fevers, chills, grimacing with abdominal pressure, diarrhea, or constipation. OBJECTIVE: VITAL SIGNS: Temperature 97.7, pulse 92, blood pressure 107/74, respiratory rate 23, and saturating 100% on room air. GENERAL: The patient was sitting up in a chair at bedside, minimally responsive to verbal stimuli, but did respond somewhat to noxious stimuli. CARDIOVASCULAR: Regular rate and rhythm. RESPIRATORY: Clear to auscultation bilaterally. ABDOMEN: Normoactive bowel sounds. Soft, nondistended. Some discomfort with manipulation of the percutaneous gastrostomy tube. The gastrostomy tube was located in the left upper quadrant with no surrounding skin erythema, purulence, or mucosal breakdown. The external bumper was loosened to approximate distance of 1 cm between the bumper and the skin. EXTREMITIES: No cyanosis, clubbing, or edema. LABORATORY DATA: No current studies are available for review. IMAGING DATA: No current studies are available for review. ASSESSMENT AND PLAN: The patient is a 63-year-old male with past medical history of meningioma, status post resection; hypertension; hyperlipidemia, presented with a complicated course with Serratia meningitis, hydrocephalus status post drain placement and bacteremia along with oropharyngeal dysphagia resulting in moderate protein calorie malnutrition. Oropharyngeal dysphagia. The patient is presenting with a recent history of meningioma excision and has had a fairly complicated hospital course. During the course of this hospitalization, he had been fed via tube feeds via Dobhoff tube in the left naris, but given his prolonged inability to maintain adequate nutrition, a percutaneous gastrostomy tube was placed on November 22, 2018. At this time, the PEG tube is functioning within normal limits and there was no evidence of periprocedural complication. RECOMMENDATIONS: 1. Would continue use of PEG tube per dietary/nutrition protocol. 2. Follow standard PEG tube care precautions. 3. Can restart anticoagulation if not already. 4. We will sign off at this time. Please call with any questions. Job ID: [id number]
[2018-11-23] MEDS: Atorvastatin Calcium 20 MG TAB PO SCH (20:49)
[2018-11-23] MEDS: Enoxaparin Sodium 40 MG/0.4 ML SYRINGE SC SCH (20:49)
[2018-11-24] MEDS: Dexamethasone 4 mg/ml Vial SLOW IVP SCH ×4 (00:48→17:52)
[2018-11-24] MEDS: HumaLOG 300 UNITS/3 ML VIAL SC PRN ×4 (00:56→20:22)
[2018-11-24] MEDS: Meropenem 2 GM, Admixture Fee 1 EACH in Sodium Chloride 0.9% 100 ML IVPB SCH ×3 (00:59→16:02)
[2018-11-24] MEDS: Pantoprazole 40 MG VIAL IVP SCH (08:29)
[2018-11-24] MEDS: Polyethylene Glycol 3350 17 GM Packet PER TUBE SCH (08:33)
[2018-11-24] MEDS: Metoprolol Tartrate 50 MG TAB PO SCH ×2 (08:33→20:14)
[2018-11-24] MEDS: Amlodipine 10 MG TAB PO SCH (08:33)
[2018-11-24 09:22] LABS: #Lymphocytes 0.6 thou/uL (1.20-3.40); #Monocytes 0.4 thou/uL (0.11-0.59); #Neutrophils 5.4 thou/uL (1.40-6.50); %Basophils 0.4 % (0.0-1.0); %Eosinophils 0.4 % (0.0-10.0); %Lymphocytes 9.8 % (21.0-51.0); %Monocytes 5.5 % (0.0-10.0); %Neutrophils 83.9 % (42.0-75.0); Hemoglobin 12.2 g/dL (14.0-18.0); Mean Corpuscular HGB CONC 33.3 g/dL (32.0-36.0); Mean Corpuscular Hemoglobin 30.3 pg (27.0-31.0); Mean Corpuscular Volume 91.2 fL (78.0-98.0); Platelet Count 157 thou/uL (130-400); RBC Distribution Width 13.4 % (11.5-14.5); Red Blood Cell (RBC) Count 4.02 mill/uL (4.70-6.10); White Blood Cell (WBC) Count 6.5 thou/uL (4.8-10.8)
[2018-11-24 09:48] LABS: Anion Gap 8 mmol/L (10-20); BUN (Urea Nitrogen) 23 mg/dL (8.4-25.7); Calc. Creatinine Clearance 178 mL/min (70-130); Calcium 8.8 mg/dL (7.8-10.44); Carbon Dioxide 30 mmol/L (23-31); Chloride 104 mmol/L (98-107); Estimated GFR-MDRD Greater than 90; Glucose 184 mg/dL (80-115); Potassium 4.1 mmol/L (3.5-5.1); Sodium 138 mmol/L (136-145)
[2018-11-24] MEDS: Vancomycin HCl 1.75 GM in Sodium Chloride 0.9% 500 ML IVPB SCH ×2 (10:31→20:12)
--- NOTE | 2018-11-24 10:31 | PRG ---
DATE OF SERVICE: 11/24/2018 SERVICE: Pulmonary Medicine. INTERVAL HISTORY: The patient is doing okay from respiratory standpoint. He is on room air. He cannot provide any additional elements of the history. Otherwise, there has been no interval change to his condition. PHYSICAL EXAMINATION: VITAL SIGNS: Afebrile, pulse 68, blood pressure 132/75, respirations 14, saturation 100% on room air. GENERAL: The patient is awake and alert, in no apparent distress. LUNGS: Decent air entry. No rhonchi are present. There is no prolonged expiratory phase or wheezing appreciated. HEART: Normal rate and regular. ABDOMEN: Soft, nontender, nondistended. Bowel sounds are positive. MUSCULOSKELETAL: No cyanosis or clubbing. No pitting in the bilateral lower extremities. NEUROLOGIC: Grossly nonfocal. LABORATORY DATA: WBC 6.5, hemoglobin 12.2, platelets 157,000. Creatinine 0.49. Basic metabolic profile is otherwise unremarkable. Blood cultures x4 are unremarkable. C diff antigen and toxin are negative. ASSESSMENT: 1. Meningioma, status post excision. 2. 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 3. Bacteremia secondary to Staphylococcus epidermidis, status post full course of antibiotics, on prophylactic vancomycin still. 4. Hydrocephalus, status post external ventricular drain. 5. Deep venous thrombosis, he need a full-dose anticoagulation once drain is removed. 6. Status post percutaneous endoscopic gastrostomy tube. DISCUSSION AND PLAN: The drain will likely come out by the end of the week. We will be looking an LTAC placement early next week. Pulmonary Critical Care will continue to follow along. We will get intermittent laboratories through time. Job ID: [id number]
--- NOTE | 2018-11-24 10:57 | PRG ---
DATE OF SERVICE: 11/24/2018 SUBJECTIVE: Mr. Tate is 26 days into a complicated hospitalization course. In essence, I have met for a long period this morning with the family to update him. We will raise his EVD to 20 cm of water and my hope is based on the biochemical data that we have seen and clinical data that we will be able to clamp his EVD tomorrow. At that point, my hope is to get the drain out by Thursday and start to initiate more aggressive anticoagulation and work towards placement. I think that he needs to be on antibiotics for weeks if he can recover and my hope is that he can. We will need to do external beam radiation therapy for what is being called a very aggressive tumor. Job ID: [id number]
[2018-11-24] MEDS: Atorvastatin Calcium 20 MG TAB PO SCH (20:14)
[2018-11-24] MEDS: Enoxaparin Sodium 40 MG/0.4 ML SYRINGE SC SCH (20:14)
[2018-11-25] MEDS: Meropenem 2 GM, Admixture Fee 1 EACH in Sodium Chloride 0.9% 100 ML IVPB SCH ×4 (00:32→22:58)
[2018-11-25] MEDS: Dexamethasone 4 mg/ml Vial SLOW IVP SCH ×5 (00:34→23:59)
[2018-11-25] MEDS: HumaLOG 300 UNITS/3 ML VIAL SC PRN ×4 (00:35→17:34)
[2018-11-25] MEDS: Pantoprazole 40 MG VIAL IVP SCH (07:51)
[2018-11-25] MEDS: Amlodipine 10 MG TAB PO SCH (07:51)
[2018-11-25] MEDS: Metoprolol Tartrate 50 MG TAB PO SCH ×2 (07:51→20:23)
[2018-11-25] MEDS: Polyethylene Glycol 3350 17 GM Packet PER TUBE SCH (07:52)
[2018-11-25 07:53] LABS: #Lymphocytes 0.9 thou/uL (1.20-3.40); #Monocytes 0.4 thou/uL (0.11-0.59); #Neutrophils 7.4 thou/uL (1.40-6.50); %Basophils 0.2 % (0.0-1.0); %Eosinophils 0.4 % (0.0-10.0); %Lymphocytes 10.6 % (21.0-51.0); %Monocytes 4.3 % (0.0-10.0); %Neutrophils 84.5 % (42.0-75.0); Hemoglobin 13.6 g/dL (14.0-18.0); Mean Corpuscular HGB CONC 33.5 g/dL (32.0-36.0); Mean Corpuscular Hemoglobin 30.2 pg (27.0-31.0); Mean Platelet Volume 8.9 fL (7.4-10.4); Platelet Count 199 thou/uL (130-400); RBC Distribution Width 13.5 % (11.5-14.5); Red Blood Cell (RBC) Count 4.52 mill/uL (4.70-6.10); White Blood Cell (WBC) Count 8.7 thou/uL (4.8-10.8)
[2018-11-25 08:14] LABS: Vancomycin, Trough 22.6 ug/mL
[2018-11-25] MEDS: Vancomycin HCl 1.75 GM in Sodium Chloride 0.9% 500 ML IVPB SCH (09:43)
--- NOTE | 2018-11-25 13:03 | PRG ---
DATE OF SERVICE: 11/25/2018 SERVICE: Pulmonary Medicine. INTERVAL HISTORY: The patient is doing really well from a respiratory standpoint. He is on room air. He is much more awake and alert this morning. He is back to following some simple commands with the right arm. He will wiggle his fingers, has put his thumb up with command. He will not follow any commands with his eyes, bilateral lower extremity, or left arm at this point. There has been no interval change to his condition otherwise. PHYSICAL EXAMINATION: VITAL SIGNS: Afebrile. Pulse 93, blood pressure 142/93, respirations 27, saturation 100% on room air. GENERAL: The patient is awake and alert, in no apparent distress. LUNGS: Excellent air entry. Minimal rhonchi are present. No prolonged expiratory phase or wheezing is appreciated. HEART: Normal rate and regular. ABDOMEN: Soft, nontender, nondistended. Bowel sounds are positive. MUSCULOSKELETAL: No cyanosis or clubbing. No pitting in the bilateral lower extremities. LABORATORY DATA: WBC is 8.7, hemoglobin 13.6, platelets 199,000 and stable. Blood cultures x2 and body fluid culture are negative. C diff antigen and toxin were previously unremarkable. ASSESSMENT: 1. Meningioma, status post excision. 2. 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 3. Bacteremia secondary to Staph epidermidis, status post full course of antibiotics, on prophylactic vancomycin. 4. Hydrocephalus, status post external ventricular drain. 5. Deep venous thrombosis. He will need full-dose anticoagulation once drain is removed. 6. Status post PEG tube. DISCUSSION AND PLAN: The patient is doing absolutely fantastic at this point. We are still hopeful for a good neurologic recovery. The patient does not have any obvious structural disease in the brain. Hopefully, once these neurons started to recover, we will start to see significant neurologic improvement. Once the ventriculostomy drain is removed, he will be stable for transition to an LTAC facility after an appropriate period of observation. Job ID: [id number]
--- NOTE | 2018-11-25 15:49 | PRG ---
DATE OF SERVICE: 11/25/2018 SUBJECTIVE: Mr. Tate is hospital day 27 into a complicated postoperative recovery after left cerebellar tumor resection. The patient overall is demonstrating improvement neurologically. When I saw him today, he is sitting up in a neuro chair and prefers to keep his head turn to the right. He is much more awake today than he has been for my exam in the last 2 days. He will mouth good morning. He follows commands and wiggling the fingers in right upper extremity. He has been remained afebrile though continues to be on vancomycin and meropenem. LABORATORY DATA: His sodium was 138 yesterday. His blood cultures remain negative. EVD output has ranged between 0 to 1 an hour, and his ICP ranged from 5 to 7. PLAN: At this time, we will plan to remove his EVD as he is demonstrating progress with normal limits of ICP. Please call with any changes with the patient's neurologic status. Job ID: [id number]
--- NOTE | 2018-11-25 17:36 | PRG ---
DATE OF SERVICE: 11/25/2018 SUBJECTIVE: Mr. Tate had ventriculostomy removed. He will follow some commands intermittently, but is still kind of obtunded. OBJECTIVE: VITAL SIGNS: Normal, blood pressure including. HEENT: Ocular movements conjugate. Pupils are equal and reactive. LUNGS: Clear. HEART: S1 and S2. Regular rate. ABDOMEN: Soft, not distended. LABORATORY DATA: White cell count 8.7 and hemoglobin 13.6. Sodium 138 and creatinine 0.49. ASSESSMENT AND DISCUSSION: Aggressive intracranial malignancy associated with meninges, which has been partially resected. Most likely, the patient will need radiation on top of that and he developed this infection by Serratia marcescens. Continue IV meropenem for a protracted period of time. End date of therapy is estimated around the end of December. Job ID: [id number]
[2018-11-25] MEDS: Atorvastatin Calcium 20 MG TAB PO SCH (20:23)
[2018-11-25] MEDS: Enoxaparin Sodium 40 MG/0.4 ML SYRINGE SC SCH (20:23)
[2018-11-25] MEDS: Vancomycin HCl 1.5 GM in Sodium Chloride 0.9% 250 ML 300 ML IVPB SCH (20:23)
[2018-11-26] MEDS: Dexamethasone 4 mg/ml Vial SLOW IVP SCH ×3 (05:33→18:06)
[2018-11-26] MEDS: HumaLOG 300 UNITS/3 ML VIAL SC PRN ×4 (05:39→18:08)
[2018-11-26] MEDS: Meropenem 2 GM, Admixture Fee 1 EACH in Sodium Chloride 0.9% 100 ML IVPB SCH ×2 (07:35→15:47)
[2018-11-26] MEDS: Vancomycin HCl 1.5 GM in Sodium Chloride 0.9% 250 ML 300 ML IVPB SCH (08:38)
[2018-11-26] MEDS: Pantoprazole 40 MG VIAL IVP SCH (08:40)
[2018-11-26] MEDS: Amlodipine 10 MG TAB PO SCH (08:40)
[2018-11-26] MEDS: Metoprolol Tartrate 50 MG TAB PO SCH ×2 (08:40→21:59)
[2018-11-26] MEDS: Polyethylene Glycol 3350 17 GM Packet PER TUBE SCH (08:41)
[2018-11-26] MEDS ORDERED: Enoxaparin Sodium 40 MG/0.4 ML SYRINGE SC SCH (09:30)
--- NOTE | 2018-11-26 10:58 | PRG ---
DATE OF SERVICE: 11/26/2018 SERVICE: Pulmonary Medicine. INTERVAL HISTORY: The patient is doing okay from a neurologic standpoint. Today, he was sitting up on the side of the bed. He required significant assistance in doing so. That being said, it seemed to perk him up a little bit. He is actually answering in one-word sentences appropriately. PHYSICAL EXAMINATION: VITAL SIGNS: Afebrile, pulse 91, blood pressure 114/62, respirations 17, and saturation 100% on room air. GENERAL: The patient is awake and alert, in no apparent distress. LUNGS: Decent air entry. No prolonged expiratory phase or wheezing. Minimal rhonchi are noted. They clear with cough. No crackles or wheezing appreciated. HEART: Normal rate and regular. ABDOMEN: Soft, nontender, and nondistended. Bowel sounds are positive. MUSCULOSKELETAL: No cyanosis or clubbing. No pitting in the bilateral lower extremities. LABORATORY DATA: WBC 8.7, hemoglobin 13.6, and platelets 199,000. Blood sugar ranges from 163 to 185. Blood cultures x4, and spinal fluid culture negative to date. ASSESSMENT: 1. Meningioma, status post resection. 2. Meningitis, secondary to Serratia, resolved. 3. Bacteremia, secondary to Staph epidermidis, status post full course of antibiotic, vancomycin was previously continued for prophylactic purposes. 4. Hydrocephalus, status post external ventricular drain removed today. 5. Deep venous thrombosis. We will need full-dose anticoagulation once cleared by Neurosurgery. 6. Status post percutaneous endoscopic gastrostomy tube placement. PLAN: If he remains neurologically stable through the weekend, he will be a candidate for transition to an LTAC facility next week. The family is looking into different options. Pulmonary/Critical Care will continue to follow along while the patient remains in this location. If he remains neurologically intact for an additional 24 to 48 hours, we can consider getting him out of the ICU to the stroke unit. Job ID: [id number]
--- NOTE | 2018-11-26 12:25 | PRG ---
DATE OF SERVICE: 11/26/2018 DICTATED FOR: Doug Mckeon MD This is postoperative recheck. Mr. Tate had his EVD removed yesterday. It has been clamped for several hours prior to removal and the patient tolerated the procedure well. The patient has been slightly less responsive today and overnight. Otherwise, he continues to have waxing and waning of his symptoms. He remains on Decadron 3 mg q.6 hours and we will plan to decrease this likely this weekend. We will now begin to escalate his Lovenox dosage to a therapeutic level as his EVD has been removed. We will do this gradually and we will begin with 20 mg subcu in the morning starting today and continue with 40 mg subcu this evening. We will plan to continue to mobilize the patient into a neuro chair. On exam today, he is sleepy and is not currently following commands. I have discussed this with his nurse and have asked that they get him to a neuro chair to see if he will become more awake as he tends to do better when he is more stimulated. We will continue to monitor the patient closely neurologically, but at this time, he is stable. Please call with any changes in patient's exam. Job ID: [id number]
[2018-11-26] MEDS: Atorvastatin Calcium 20 MG TAB PO SCH (21:58)
[2018-11-26] MEDS: Enoxaparin Sodium 40 MG/0.4 ML SYRINGE SC SCH (21:58)
[2018-11-27] MEDS: Dexamethasone 4 mg/ml Vial SLOW IVP SCH ×4 (00:24→18:15)
[2018-11-27] MEDS: Meropenem 2 GM, Admixture Fee 1 EACH in Sodium Chloride 0.9% 100 ML IVPB SCH ×3 (00:24→15:47)
[2018-11-27] MEDS: HumaLOG 300 UNITS/3 ML VIAL SC PRN ×2 (06:17→18:39)
[2018-11-27 07:06] LABS: Anion Gap 10 mmol/L (10-20); BUN (Urea Nitrogen) 21 mg/dL (8.4-25.7); Calc. Creatinine Clearance 189 mL/min (70-130); Calcium 8.5 mg/dL (7.8-10.44); Carbon Dioxide 29 mmol/L (23-31); Chloride 104 mmol/L (98-107); Estimated GFR-MDRD Greater than 90; Glucose 224 mg/dL (80-115); Hemoglobin 12.5 g/dL (14.0-18.0); Mean Corpuscular HGB CONC 32.8 g/dL (32.0-36.0); Mean Corpuscular Hemoglobin 30.6 pg (27.0-31.0); Mean Corpuscular Volume 93.3 fL (78.0-98.0); Mean Platelet Volume 8.6 fL (7.4-10.4); Phosphorus 2.5 mg/dL (2.3-4.7); Platelet Count 155 thou/uL (130-400); Potassium 4.4 mmol/L (3.5-5.1); RBC Distribution Width 13.4 % (11.5-14.5); Red Blood Cell (RBC) Count 4.07 mill/uL (4.70-6.10); Sodium 139 mmol/L (136-145)
[2018-11-27] MEDS ORDERED: Enoxaparin Sodium 40 MG/0.4 ML SYRINGE SC SCH (09:00)
[2018-11-27 09:11] LABS: Lymphocytes 18 % (21-51); MDiff Complete? YES; Monocytes 6 % (0-10); Neutrophil 74 % (42-75); Platelet Morphology Comment Appears Adequate; Reactive Lymphocytes 2 % (0-10)
[2018-11-27] MEDS: Polyethylene Glycol 3350 17 GM Packet PER TUBE SCH (09:32)
[2018-11-27] MEDS: Metoprolol Tartrate 50 MG TAB PO SCH ×2 (09:33→21:28)
[2018-11-27] MEDS: Amlodipine 10 MG TAB PO SCH (09:33)
[2018-11-27] MEDS: Pantoprazole 40 MG VIAL IVP SCH (09:33)
[2018-11-27] MEDS ORDERED: Enoxaparin Sodium 30 MG/0.3 ML SYRINGE SC SCH (11:15)
--- NOTE | 2018-11-27 11:31 | PRG ---
DATE OF SERVICE: 11/27/2018 SUBJECTIVE: Mr. Tate is starting to get verbal compared to the last time I saw him. OBJECTIVE: VITAL SIGNS: His heart rate is in the 70s, blood pressure 120/72, respiratory rate is in the 20s, oximetry is 100%. LUNGS: Clear. HEART: Regular rhythm. ABDOMEN: Soft and nontender. EXTREMITIES: Without significant edema. LABORATORY DATA: White count is 8.9, hemoglobin 12.5, platelets 155. Electrolytes are normal. Glucose this morning. IMPRESSION: 1. Meningioma, status post resection. 2. Serratia meningitis. 3. Status post Staph epidermidis bacteremia. 4. Status post external ventricular drain removal for hydrocephalus. 5. Right common femoral vein and right external iliac vein thrombus. He is on prophylactic dose Lovenox. He needs full-dose anticoagulation or filter at this point, I would think. Neurosurgery yesterday stated we could restart anticoagulation. I will discuss again with Dr. Mckeon to confirm this. Job ID: [id number]
--- NOTE | 2018-11-27 11:34 | PRG ---
DATE OF SERVICE: 11/27/2018 SUBJECTIVE: Mr. Tate is now 29 days into his hospitalization. He is about to work with physical therapy to get up into a chair. He was just sitting up and said good morning to the Physical Therapy team. His wounds are dry and are healing well. He has his eyes open this morning for me and he is not verbal, but again he is just laid back down. They are about to transfer him to the MEDIchair. He continues to have a waxing and waning neurologic exam and is certainly much more awake when he is up out of the bed into a chair. He has mild tremor in his right arm this morning. His labs are all in the normal range with the exception of his glucose which is 224. He is on 3 mg every 6 hours of his Decadron and I would like to decrease this down to 2 mg every 6 hours on Thursday. We have stopped his vancomycin and he has been afebrile and his vitals have been stable. We will continue to slowly increase his Lovenox, increasing his dose to 30 mg in the morning and 40 mg in the evening. We will plan to increase that again to 40 in the morning and 40 in the evening again and hopefully increase approximately 10 to 20 mg daily given risk of intracranial bleed; however, obviously, I do not want his IVC filter to thrombose off given his high risk for DVT propagation. It appears as if his full dose is going to be approximately 80 to 90 mg twice a day. We are continuing to work on appropriate placement to continue to work on getting him stronger. Job ID: [id number]
--- NOTE | 2018-11-27 14:32 | ULT ---
FUltrasound Doppler duplex venous bilateral lower extremities: 11/17/2018 HISTORY: Follow up DVT in right lower extremity COMPARISON: 11/18/2018 TECHNIQUE: Grayscale, color-flow, and spectral analysis, of major veins of bilateral lower extremities. FINDINGS: There is incomplete compressibility of the right common femoral vein with linear, nonacute clot exten ding into the profunda femoral vein. There is blood flow in these veins. The right external iliac vei n was not evaluated on the current study. There is no deep venous thrombosis of the right femoral, popliteal, greater saphenous, or posterior t ibial, veins. There is demonstration of blood flow with normal compressibility, of the left common femoral, profund a femoral, greater saphenous, femoral, popliteal, and posterior tibial, veins. IMPRESSION: Subacute Nonocclusive deep venous thrombosis remains in the right common femoral vein
[2018-11-27] MEDS ORDERED: Enoxaparin Sodium 60 MG/0.6 ML SYRINGE SC SCH (21:00)
[2018-11-27] MEDS: Atorvastatin Calcium 20 MG TAB PO SCH (21:28)
[2018-11-28] MEDS: Meropenem 2 GM, Admixture Fee 1 EACH in Sodium Chloride 0.9% 100 ML IVPB SCH ×4 (00:04→23:51)
[2018-11-28] MEDS: Dexamethasone 4 mg/ml Vial SLOW IVP SCH ×5 (00:04→23:39)
[2018-11-28] MEDS: HumaLOG 300 UNITS/3 ML VIAL SC PRN ×5 (00:41→23:39)
[2018-11-28] MEDS ORDERED: Enoxaparin Sodium 40 MG/0.4 ML SYRINGE SC SCH (09:00)
[2018-11-28] MEDS ORDERED: Enoxaparin Sodium 30 MG/0.3 ML SYRINGE SC SCH (09:00)
[2018-11-28] MEDS: Amlodipine 10 MG TAB PO SCH (09:08)
[2018-11-28] MEDS: Metoprolol Tartrate 50 MG TAB PO SCH ×2 (09:08→20:41)
[2018-11-28] MEDS: Pantoprazole 40 MG VIAL IVP SCH (09:10)
[2018-11-28] MEDS: Polyethylene Glycol 3350 17 GM Packet PER TUBE SCH (09:10)
--- NOTE | 2018-11-28 15:07 | PRG ---
DATE OF SERVICE: 11/28/2018 Mr. Tate is now 30 days into his hospitalization. He had made slow but steady progress over the course of the last couple of weeks and that he is now able to maintain his eyes open for up to 6 hours yesterday at a time on the MEDIchair. This morning, his eyes are closed, but he is lying in bed and is about to get into a MEDIchair with the Nursing Team. The nurse tells me he has been more responsive this morning than she had seen in the past. All of this is good news and I remain optimistic. We will remove his stitches tomorrow. We will increase his Lovenox by approximately 20 mg daily and my hope is for him to be fully anticoagulated by Thursday of this week. His ultrasound of the lower extremities demonstrates nonocclusive thrombus and he has an IVC filter in place. We will continue meropenem. His laboratory data remain in an acceptable range, and overall, I am pleased with this slow and again steady progress. The plan is for [facility] in [place], in which he will get twice daily therapy, and I think this will be for his best. I will arrange for followup in my clinic in approximately 6 weeks to see how he is doing. He will likely need 3 months of anticoagulation prolonged course of meropenem, given his history of infectious burden. Job ID: [id number]
--- NOTE | 2018-11-28 15:30 | PRG ---
DATE OF SERVICE: 11/28/2018 SUBJECTIVE: Lea is nonverbal. His eyes are open. He appears in no distress. He is in the neuro chair. OBJECTIVE: VITAL SIGNS: He is afebrile, heart rate is 90, blood pressure is 126/86, respiratory rate is 22, oximetry is 100%. LUNGS: Clear. HEART: Regular rhythm. S1 and S2 are normal. ABDOMEN: Soft, nondistended, protuberant. EXTREMITIES: Without asymmetry or significant edema. LABORATORY DATA: White count 8, hemoglobin 12.5 yesterday. There is no CBC today. No electrolytes today. Glucoses are today 127 to 212. IMPRESSION: 1. Status post resection of a brain tumor that was initially felt to be a meningioma. Talking to Dr. Mckeon yesterday was relayed to me that [facility] could not cytologically classify the tumor. It is my impression that this may be a much more aggressive tumor than the typical meningioma. 2. Status post Serratia meningitis. 3. Encephalopathy. This is slow to clear after his meningitis. 4. Lower extremity deep vein clot extending into the iliac vein with an inferior vena cava filter in place for gradually increasing his anticoagulants. He probably can be converted to Eliquis at the time of transfer. He does have blood flow in his common femoral vein now. His external iliac was not evaluated. This is an argument that actually this clot may be improving. Any event, we will continue to follow with the other physicians as long as he is here pending transfer to long-term acute care. Job ID: [id number]
[2018-11-28] MEDS: Atorvastatin Calcium 20 MG TAB PO SCH (20:41)
[2018-11-28] MEDS ORDERED: Enoxaparin Sodium 60 MG/0.6 ML SYRINGE SC SCH (21:00)
[2018-11-29] MEDS: HumaLOG 300 UNITS/3 ML VIAL SC PRN ×3 (05:57→18:10)
[2018-11-29] MEDS: Dexamethasone 4 mg/ml Vial SLOW IVP SCH ×4 (05:57→20:53)
[2018-11-29 06:24] VITALS: BMI 24.7
[2018-11-29] MEDS: Meropenem 2 GM, Admixture Fee 1 EACH in Sodium Chloride 0.9% 100 ML IVPB SCH ×2 (07:25→16:00)
[2018-11-29] MEDS ORDERED: Enoxaparin Sodium 60 MG/0.6 ML SYRINGE SC SCH ×2 (08:10→09:00)
[2018-11-29] MEDS ORDERED: Enoxaparin Sodium 40 MG/0.4 ML SYRINGE SC SCH (08:10)
--- NOTE | 2018-11-29 08:42 | PRG ---
DATE OF SERVICE: 11/29/2018 SUBJECTIVE: This morning, he remains encephalopathic. The patient's vital signs are stable. OBJECTIVE: VITAL SIGNS: His pulse is 109, blood pressure is 180/70, saturations are 90% . CHEST: Decreased breath sounds. No wheezing. CARDIAC: Normal S1, S2. No gallops. ABDOMEN: No masses. IMPRESSION: 1. Status post craniotomy, aggressive meningioma. 2. Deep vein thrombosis status post filter. 3. Gram-negative sepsis. 4. Respiratory failure. 5. Encephalopathy. PLAN: Eventually placement, antibiotic per Infectious Disease, supportive care, PT. We will follow. Job ID: [id number]
[2018-11-29 08:43] LABS: #Lymphocytes 0.9 thou/uL (1.20-3.40); #Monocytes 0.5 thou/uL (0.11-0.59); #Neutrophils 9.3 thou/uL (1.40-6.50); %Eosinophils 0.2 % (0.0-10.0); %Lymphocytes 8.4 % (21.0-51.0); %Monocytes 4.9 % (0.0-10.0); %Neutrophils 86.6 % (42.0-75.0); Hemoglobin 12.4 g/dL (14.0-18.0); Mean Corpuscular HGB CONC 32.1 g/dL (32.0-36.0); Mean Corpuscular Hemoglobin 29.8 pg (27.0-31.0); Mean Corpuscular Volume 92.6 fL (78.0-98.0); Mean Platelet Volume 8.9 fL (7.4-10.4); Platelet Count 188 thou/uL (130-400); RBC Distribution Width 13.6 % (11.5-14.5); Red Blood Cell (RBC) Count 4.18 mill/uL (4.70-6.10); White Blood Cell (WBC) Count 10.7 thou/uL (4.8-10.8)
[2018-11-29] MEDS: Amlodipine 10 MG TAB PO SCH (08:57)
[2018-11-29] MEDS: Metoprolol Tartrate 50 MG TAB PO SCH ×2 (08:57→20:38)
[2018-11-29] MEDS: Polyethylene Glycol 3350 17 GM Packet PER TUBE SCH (08:58)
[2018-11-29] MEDS: Pantoprazole 40 MG VIAL IVP SCH (08:58)
[2018-11-29 09:12] LABS: Anion Gap 10 mmol/L (10-20); BUN (Urea Nitrogen) 24 mg/dL (8.4-25.7); Calc. Creatinine Clearance 171 mL/min (70-130); Calcium 8.7 mg/dL (7.8-10.44); Carbon Dioxide 30 mmol/L (23-31); Chloride 106 mmol/L (98-107); Estimated GFR-MDRD Greater than 90; Glucose 222 mg/dL (80-115); Potassium 4.2 mmol/L (3.5-5.1); Sodium 142 mmol/L (136-145)
--- NOTE | 2018-11-29 11:57 | PRG ---
DATE OF SERVICE: 11/29/2018 Mr. Tate is now hospital day #31. We are continuing to increase his Lovenox to therapeutic dose and have increased to 50 mg subcu this morning and will increase to 70 mg subcu this evening. We have also decreased his Decadron to 2 mg q.4 hours. The patient is comfortably sleeping. His left cerebellar region incision is covered with a dressing and dry. The patient was up in a neuro chair for 3 hours yesterday and interactive. He has had a little bit of tachycardia. His white blood cell count is at 10.7 up from 8.0. His sodium is at 142 currently. He remains on meropenem. He has remained afebrile. At this time, he is sleeping and is not formally following commands, but this is baseline for his neurologic exam. We have asked that his nurse again continue to renormalize his schedule as they get him to a neuro chair again today. We likely will plan for continued increase of Lovenox to therapeutic dose and will likely transition to Eliquis on Thursday. We will plan to remove his EVD chuy other than the exit wound chuy and his cranial incision sutures tomorrow. Case management is working on placement to LTAC and the patient's family has decided on a facility in [place], where he will get twice daily rehab services. We had a long discussion with the patient's family yesterday. Please call with any changes in the patient's neurologic status. Otherwise, we will continue to monitor the patient and continue increasing his anticoagulant. Job ID: [id number]
[2018-11-29] MEDS: Atorvastatin Calcium 20 MG TAB PO SCH (20:38)
[2018-11-29] MEDS ORDERED: Enoxaparin Sodium 80 MG/0.8 ML SYRINGE SC SCH (21:00)
[2018-11-30] MEDS: Meropenem 2 GM, Admixture Fee 1 EACH in Sodium Chloride 0.9% 100 ML IVPB SCH ×3 (01:33→16:08)
[2018-11-30] MEDS: Dexamethasone 4 mg/ml Vial SLOW IVP SCH ×4 (02:38→21:00)
[2018-11-30] MEDS: HumaLOG 300 UNITS/3 ML VIAL SC PRN ×4 (05:50→21:05)
[2018-11-30 07:59] LABS: #Lymphocytes 2.2 thou/uL (1.20-3.40); #Monocytes 0.6 thou/uL (0.11-0.59); #Neutrophils 8.7 thou/uL (1.40-6.50); %Eosinophils 0.3 % (0.0-10.0); %Lymphocytes 19.1 % (21.0-51.0); %Monocytes 5.1 % (0.0-10.0); %Neutrophils 75.5 % (42.0-75.0); Hemoglobin 13.3 g/dL (14.0-18.0); Mean Corpuscular HGB CONC 33.3 g/dL (32.0-36.0); Mean Corpuscular Hemoglobin 30.6 pg (27.0-31.0); Mean Corpuscular Volume 91.9 fL (78.0-98.0); Mean Platelet Volume 9.5 fL (7.4-10.4); Platelet Count 216 thou/uL (130-400); RBC Distribution Width 13.8 % (11.5-14.5); Red Blood Cell (RBC) Count 4.34 mill/uL (4.70-6.10); White Blood Cell (WBC) Count 11.5 thou/uL (4.8-10.8)
[2018-11-30 08:13] LABS: Anion Gap 11 mmol/L (10-20); BUN (Urea Nitrogen) 26 mg/dL (8.4-25.7); Calc. Creatinine Clearance 168 mL/min (70-130); Calcium 8.9 mg/dL (7.8-10.44); Carbon Dioxide 30 mmol/L (23-31); Chloride 108 mmol/L (98-107); Estimated GFR-MDRD Greater than 90; Glucose 222 mg/dL (80-115); Potassium 4.3 mmol/L (3.5-5.1); Sodium 145 mmol/L (136-145)
[2018-11-30] MEDS: Pantoprazole 40 MG VIAL IVP SCH (08:56)
[2018-11-30] MEDS: Polyethylene Glycol 3350 17 GM Packet PER TUBE SCH (08:56)
[2018-11-30] MEDS: Metoprolol Tartrate 50 MG TAB PO SCH ×2 (08:57→21:00)
[2018-11-30] MEDS: Amlodipine 10 MG TAB PO SCH (08:57)
[2018-11-30] MEDS ORDERED: Enoxaparin Sodium 60 MG/0.6 ML SYRINGE SC SCH (09:00)
--- NOTE | 2018-11-30 09:15 | PRG ---
DATE OF SERVICE: 11/30/2018 SUBJECTIVE: Status post craniotomy, Serratia sepsis, remains still encephalopathic, minimally responsive. OBJECTIVE: VITAL SIGNS: Saturations are 99% on room air, respiratory rate 25, blood pressure 130/76, pulse 100. He is afebrile. CHEST: Decreased breath sounds. No wheezing. CARDIAC: Normal S1 and S2. No gallops. ABDOMEN: No masses. LABORATORY DATA: Unremarkable. Lytes are normal. He has inferior vena cava filter in place. He had a venogram done yesterday, which shows evidence of nonocclusive deep venous thrombosis in the right common femoral vein, status post filter. IMPRESSION: 1. Craniotomy. 2. Sepsis. 3. Respiratory failure. 4. Obesity. 5. Encephalopathy. PLAN: He remains on meropenem, gram-negative. He remains on Decadron. Try to get a placement. He was started on Lovenox yesterday for a nonocclusive thrombus. He already has a filter in place. We will discuss and follow. Job ID: [id number]
--- NOTE | 2018-11-30 14:36 | PRG ---
DATE OF SERVICE: 11/30/2018 This is Julius Smith PA-C dictating a report for Doug Mckeon MD. This is a postoperative recheck. Mr. Tate is now hospital day #33 with a complicated hospital admission. He has been slightly tachycardic. Our main objective now is to increase his Lovenox so that he is therapeutic, so we will increase to 60 mg subcutaneous this morning and 80 mg subcutaneous tonight. We will begin Eliquis tomorrow. His steroids were decreased yesterday. Slight increase in his white blood cell count. He remains on meropenem. I will remove his sutures and chuy, although leave the chuy from the EVD exit site for the next several days as this was just removed last week. Please call with any changes in patient's neurologic status. Otherwise at this time, he is sleeping comfortably and is at his neurologic baseline in the morning. Says he sleeps heavily in the morning and then becomes more interactive once he is up in the neuro chair. Job ID: [id number]
[2018-11-30] MEDS ORDERED: Enoxaparin Sodium 80 MG/0.8 ML SYRINGE SC SCH (21:00)
[2018-11-30] MEDS: Atorvastatin Calcium 20 MG TAB PO SCH (21:00)
[2018-12-01] MEDS: Meropenem 2 GM, Admixture Fee 1 EACH in Sodium Chloride 0.9% 100 ML IVPB SCH ×3 (00:33→16:06)
[2018-12-01] MEDS: Dexamethasone 4 mg/ml Vial SLOW IVP SCH ×4 (03:57→21:22)
[2018-12-01] MEDS: HumaLOG 300 UNITS/3 ML VIAL SC PRN ×3 (05:44→18:09)
--- NOTE | 2018-12-01 08:20 | PRG ---
DATE OF SERVICE: 12/01/2018 SUBJECTIVE: A 63-year-old gentleman, remains encephalopathic, status post craniotomy. OBJECTIVE: VITAL SIGNS: Sats 100% on room air, respiratory rate of 16, temperature 97, blood pressure 100/75. CHEST: Decreased breath sounds. No wheezing. CARDIAC: Normal S1 and S2. No gallops. ABDOMEN: No masses. LABORATORY DATA: Labs are unremarkable. IMPRESSION: 1. Status post craniotomy, anaplastic tumor. 2. Encephalopathy. 3. Respiratory failure for Serratia sepsis. 4. Status post filter for deep venous thrombosis. PLAN: 1. Awaiting placement. 2. PT supportive care. 3. Decadron as per Neurosurgery. 4. Continue aggressive PT. 5. We will follow. Job ID: [id number]
[2018-12-01 08:38] LABS: #Lymphocytes 1.5 thou/uL (1.20-3.40); #Monocytes 0.6 thou/uL (0.11-0.59); #Neutrophils 9.6 thou/uL (1.40-6.50); %Basophils 0.1 % (0.0-1.0); %Eosinophils 0.2 % (0.0-10.0); %Monocytes 5.4 % (0.0-10.0); %Neutrophils 81.4 % (42.0-75.0); Hemoglobin 13.2 g/dL (14.0-18.0); Mean Corpuscular Hemoglobin 31.4 pg (27.0-31.0); Mean Corpuscular Volume 92.2 fL (78.0-98.0); Mean Platelet Volume 8.9 fL (7.4-10.4); Platelet Count 165 thou/uL (130-400); RBC Distribution Width 13.7 % (11.5-14.5); Red Blood Cell (RBC) Count 4.21 mill/uL (4.70-6.10); White Blood Cell (WBC) Count 11.8 thou/uL (4.8-10.8)
[2018-12-01 09:02] LABS: Anion Gap 11 mmol/L (10-20); BUN (Urea Nitrogen) 27 mg/dL (8.4-25.7); Calc. Creatinine Clearance 168 mL/min (70-130); Calcium 8.6 mg/dL (7.8-10.44); Carbon Dioxide 31 mmol/L (23-31); Chloride 109 mmol/L (98-107); Estimated GFR-MDRD Greater than 90; Glucose 210 mg/dL (80-115); Sodium 147 mmol/L (136-145)
[2018-12-01] MEDS: Amlodipine 10 MG TAB PO SCH (09:02)
[2018-12-01] MEDS: Metoprolol Tartrate 50 MG TAB PO SCH ×2 (09:04→21:22)
[2018-12-01] MEDS: Apixaban 5 MG TAB PO SCH ×2 (09:04→21:22)
[2018-12-01] MEDS: Polyethylene Glycol 3350 17 GM Packet PER TUBE SCH (09:05)
[2018-12-01] MEDS: Pantoprazole 40 MG VIAL IVP SCH (09:05)
--- NOTE | 2018-12-01 09:46 | PRG ---
DATE OF SERVICE: 12/01/2018 This is Julius Smith PA-C dictating a report for Doug Mckeon MD. Postoperative recheck. Mr. Tate is now hospital day #33 with a complicated hospital admission. At this time, the patient appears to be consistent in his neurologic exam. He does sleep significantly in the morning, but then will awaken and follow commands when he is up in a neuro chair. His chuy and sutures removed yesterday and although, the EVD exit site chuy remain as they are only a few days out from removing EVD. At this time, we will discontinue his Lovenox and begin full anticoagulation with 5 mg of Eliquis b.i.d. I have updated the nursing staff. The patient's cranial wound dressings are intact and without obvious drainage. Please call with any changes in the patient's neurologic status. I have also updated the nursing staff that once he is accepted to LTAC [facility], he may be discharged at any time. Please call with any changes in the patient's neurologic status. Job ID: [id number]
--- NOTE | 2018-12-01 09:46 | PRG ---
DATE OF SERVICE: 12/01/2018 SUBJECTIVE: Mr. Tate is now hospital day 33. We are finalizing plans for transfer to [facility] to receive twice a day physical therapy and once a day speech therapy. I think this would be excellent. His sutures have been removed in the left suboccipital region. They will need to be removed next week in the right frontal region from his external ventricular drain. He continues to be afebrile and had mild elevation in his white blood cell count. He has been mildly tachycardic as well. Neurologically, he remains unchanged. We will discontinue his Lovenox and initiate Eliquis today at 5 mg twice a day. Job ID: [id number]
[2018-12-01] MEDS: Atorvastatin Calcium 20 MG TAB PO SCH (21:22)
[2018-12-02] MEDS: Meropenem 2 GM, Admixture Fee 1 EACH in Sodium Chloride 0.9% 100 ML IVPB SCH ×3 (01:01→15:59)
[2018-12-02] MEDS: Dexamethasone 4 mg/ml Vial SLOW IVP SCH ×3 (03:06→14:40)
[2018-12-02 05:02] LABS: Anion Gap 14 mmol/L (10-20); BUN (Urea Nitrogen) 31 mg/dL (8.4-25.7); Band 3 % (5-11); Calc. Creatinine Clearance 168 mL/min (70-130); Calcium 9.3 mg/dL (7.8-10.44); Carbon Dioxide 29 mmol/L (23-31); Chloride 110 mmol/L (98-107); Estimated GFR-MDRD Greater than 90; Glucose 199 mg/dL (80-115); Hemoglobin 13.9 g/dL (14.0-18.0); Lymphocytes 6 % (21-51); MDiff Complete? YES; Mean Corpuscular HGB CONC 33.2 g/dL (32.0-36.0); Mean Corpuscular Hemoglobin 30.8 pg (27.0-31.0); Mean Corpuscular Volume 92.8 fL (78.0-98.0); Mean Platelet Volume 9.1 fL (7.4-10.4); Monocytes 2 % (0-10); Neutrophil 89 % (42-75); Platelet Count 149 thou/uL (130-400); Platelet Morphology Comment Appears Adequate; RBC Distribution Width 13.7 % (11.5-14.5); Sodium 149 mmol/L (136-145); White Blood Cell (WBC) Count 12.2 thou/uL (4.8-10.8)
[2018-12-02] MEDS: Amlodipine 10 MG TAB PO SCH (08:15)
[2018-12-02] MEDS: Metoprolol Tartrate 50 MG TAB PO SCH (08:15)
[2018-12-02] MEDS: Polyethylene Glycol 3350 17 GM Packet PER TUBE SCH (08:16)
[2018-12-02] MEDS: Pantoprazole 40 MG VIAL IVP SCH (08:16)
[2018-12-02] MEDS: Apixaban 5 MG TAB PO SCH (08:16)
[2018-12-02] MEDS ORDERED: Enoxaparin Sodium 60 MG/0.6 ML SYRINGE SC SCH (09:00)
--- NOTE | 2018-12-02 09:45 | PRG ---
DATE OF SERVICE: 12/02/2018 SUBJECTIVE: Andrew Tate, this morning, remains still encephalopathic. OBJECTIVE: VITAL SIGNS: Sats are 100% on room air, pulse 108, temperature 98, and blood pressure 113/80. CHEST: Decreased breath sounds. No wheezing. CARDIAC: Normal S1 and S2. No gallops. ABDOMEN: No masses. LABORATORY DATA: Lytes are normal. CBC, unremarkable. IMPRESSION: 1. Status post craniotomy. 2. Gram-negative sepsis. 3. Encephalopathy. PLAN: Trying to get placement. Otherwise, continue supportive care. Continue antibiotics as per Infectious Disease. Job ID: [id number]
--- NOTE | 2018-12-02 11:23 | PRG ---
DATE OF SERVICE: 12/02/2018 This is Julius Smith PA-C dictating a report for Doug Mckeon MD. Mr. 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 We have transitioned him now to full dose of Eliquis. He continues to wax and wane his neurologic exam, although he sleeps soundly in the morning and becomes more alert when he is in the neuro chair working with therapies. His sutures were removed and have uncovered and Dermabond was placed over the incision and review of the incisions today shows that it is clean and dry and intact. At this time, the patient is not formally following commands. His white count is a little bit elevated at 12. Sodium is 149. However, he remains on sodium bicarb replacement. He has been accepted into [facility] at [facility] and I have signed the appropriate paperwork for him to discharge. We will follow up with the patient in 6 weeks. Otherwise, would like him to continue his antibiotics and we have begun a steroid taper over the next several weeks. Please call with any changes in the patient's neurologic status, otherwise he is ready to go to LTAC when arrangements have been made. Job ID: [id number]
[2018-12-02] MEDS: HumaLOG 300 UNITS/3 ML VIAL SC PRN ×2 (11:45→17:54)
[2018-12-02 12:55] VITALS: BP 128/93
--- NOTE | 2018-12-02 13:52 | PRG ---
DATE OF SERVICE: 12/02/2018 SUBJECTIVE: Mr. Tate is not very responsive. He opens his eyes, but does not interact with the family or with the medical team. OBJECTIVE: VITAL SIGNS: His T-max 98.6 and blood pressure 120/83. GENERAL: Ventriculostomy tube has been removed. He has a PICC line in place. ABDOMEN: Gastrostomy tube in place with normal-appearing exit site and he has an indwelling Valdez catheter. HEENT: Ocular movements are conjugate, but he does not establish eye contact. Pupils are 2 mm and reactive. Conjunctivae normal. Oral cavity, little bit dry. LUNGS: Symmetric. Clear breath sounds. HEART: S1 and S2 regular rate. ABDOMEN: Soft and not distended. EXTREMITIES: I could not observe any spontaneous movements of the extremities at this point in time. He has upgoing toe on the right side with no clonus. Left-sided flexor plantar response. LABORATORY DATA: White cell count 12.2, hemoglobin 13.9, platelets 149. Sodium 149. He is currently on meropenem, Eliquis, and Decadron q.6 hours. 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 I think he will probably be extended for another 6 weeks from this dictation. Therefore, the end date of therapy will be around January 05 approximately. Weekly labs with CBC, CRP, and CMP. The patient being transferred to neuro unit. Job ID: [id number]
[2018-12-02 15:01] VITALS: TEMP 98.1
[2018-12-06] MEDS ORDERED: Dexamethasone 1 MG TAB PO SCH (06:00)
[2018-12-13] MEDS ORDERED: Dexamethasone 1 MG TAB PO SCH (06:00)
[2018-12-20] MEDS ORDERED: Dexamethasone 1 MG TAB PO SCH (09:00)
[2018-12-27] MEDS ORDERED: Dexamethasone 1 MG TAB PO SCH (09:00)
[2019-10-30] MEDS ORDERED: Heparin 1,000 UNITS/ML VIAL ONE (11:11)
== END 2018-12-02 17:58 | DRG 856 ==
LOC: SJJU 12:15 → CCU 10-30 15:20
PROVIDERS: ADMIT Neurological Surgery; ATTEND Neurological Surgery
PROC: 05HM33Z Insertion of Infusion Device into Right Internal Jugular Vein, Percutaneous Approach (ICD-10-PCS; 2018-10-30)
PROC: 0B9L8ZX Drainage of Left Lung, Via Natural or Artificial Opening Endoscopic, Diagnostic (ICD-10-PCS; 2018-10-31)
PROC: 0B9D8ZX Drainage of Right Middle Lung Lobe, Via Natural or Artificial Opening Endoscopic, Diagnostic (ICD-10-PCS; 2018-10-31)
PROC: 0B9C8ZX Drainage of Right Upper Lung Lobe, Via Natural or Artificial Opening Endoscopic, Diagnostic (ICD-10-PCS; 2018-10-31)
PROC: 0B9G8ZX Drainage of Left Upper Lung Lobe, Via Natural or Artificial Opening Endoscopic, Diagnostic (ICD-10-PCS; 2018-10-31)
PROC: 0BH18EZ Insertion of Endotracheal Airway into Trachea, Via Natural or Artificial Opening Endoscopic (ICD-10-PCS; 2018-10-31)
PROC: 5A1955Z Respiratory Ventilation, Greater than 96 Consecutive Hours (ICD-10-PCS; 2018-10-31)
PROC: 0W910ZZ Drainage of Cranial Cavity, Open Approach (ICD-10-PCS; 2018-11-08)
PROC: 0WP Anatomical Regions, General, Removal (ICD-10-PCS; 2018-11-08)
PROC: 06H03DZ Insertion of Intraluminal Device into Inferior Vena Cava, Percutaneous Approach (ICD-10-PCS; 2018-11-11)
PROC: B5191ZZ Fluoroscopy of Inferior Vena Cava using Low Osmolar Contrast (ICD-10-PCS; 2018-11-11)
PROC: 02HV33Z Insertion of Infusion Device into Superior Vena Cava, Percutaneous Approach (ICD-10-PCS; 2018-11-17)
PROC: B5181ZA Fluoroscopy of Superior Vena Cava using Low Osmolar Contrast, Guidance (ICD-10-PCS; 2018-11-17)
PROC: B548ZZA Ultrasonography of Superior Vena Cava, Guidance (ICD-10-PCS; 2018-11-17)
PROC: 0D9 Gastrointestinal System, Drainage (ICD-10-PCS; principal; 2018-11-22)
PROC: 0DH63UZ Insertion of Feeding Device into Stomach, Percutaneous Approach (ICD-10-PCS; 2018-11-22)
PROC: 3E0G76Z Introduction of Nutritional Substance into Upper GI, Via Natural or Artificial Opening (ICD-10-PCS; 2018-11-22)
DX: T81.42XA Infection following a procedure, deep incisional surgical site, initial encounter (principal); G93.6 Cerebral edema; G04.90 Encephalitis and encephalomyelitis, unspecified; G00.9 Bacterial meningitis, unspecified; A41.53 Sepsis due to Serratia; J95.821 Acute postprocedural respiratory failure; G91.9 Hydrocephalus, unspecified; E22.2 Syndrome of inappropriate secretion of antidiuretic hormone; E44.0 Moderate protein-calorie malnutrition; I82.421 Acute embolism and thrombosis of right iliac vein; I82.411 Acute embolism and thrombosis of right femoral vein; J98.11 Atelectasis; I82.431 Acute embolism and thrombosis of right popliteal vein; E87.0 Hyperosmolality and hypernatremia; T81.41XA Infection following a procedure, superficial incisional surgical site, initial encounter; T81.44XA Sepsis following a procedure, initial encounter; R13.12 Dysphagia, oropharyngeal phase; B99.8 Other infectious disease; D32.0 Benign neoplasm of cerebral meninges; I10 Essential (primary) hypertension; E78.5 Hyperlipidemia, unspecified; G89.18 Other acute postprocedural pain; Z87.01 Personal history of pneumonia (recurrent); Z68.27 Body mass index [BMI] 27.0-27.9, adult; J40 Bronchitis, not specified as acute or chronic; F10.10 Alcohol abuse, uncomplicated; F17.210 Nicotine dependence, cigarettes, uncomplicated; E66.01 Morbid (severe) obesity due to excess calories
CPT/HCPCS: 36415; 36416; 36569; 37191; 70450; 70470; 70496; 70498; 71045; 71275; 74018; 76942; 80048; 80053; 80202; 81003; 81015; 82805; 82945; 83735; 83930; 83935; 84100; 84157; 84295; 84300; 84484; 85025; 85060; 85610; 85652; 85730; 86140; 87040; 87070; 87077; 87086; 87102; 87149; 87186; 87205; 87206; 87324; 87449; 89051; 93005; 93970; 94002; 94003; 94640; 95816; 95819; 96374; 96375; A4217; C1751; C1769; C9113; J0131; J0360; J0692; J0696; J0744; J1100; J1644; J1650; J1815; J1940; J1953; J2001; J2060; J2185; J2250; J2270; J2704; J3010; J3230; J3370; J3411; J3480; J3490; J7050; J7131; J7620; J8540; Q9966; Q9967

== ENCOUNTER 2021-01-07 10:52 | Outpatient (CLI) | payer BC ==
[2020-10-15 12:33] LABS: Hemoglobin 11.2 g/dL (13.5-17.5); Mean Corpuscular HGB CONC 31.6 g/dL (32.0-36.0); Mean Corpuscular Hemoglobin 28.1 pg (27.0-33.0); Mean Corpuscular Volume 88.7 fl (81.2-95.1); Mean Platelet Volume 10.8 fl (7.4-10.4); Platelet Count 202 10x3/uL (150-450); RBC Distribution Width 13.2 % (11.5-14.5); Red Blood Cell (RBC) Count 3.99 10x6/uL (4.32-5.72); White Blood Cell (WBC) Count 7.5 10x3/uL (3.5-10.5)
[2020-10-15 12:49] LABS: INR-International Normal Ratio 1.1; Prothrombin Time 11.2 sec (9.5-12.1)
[2020-10-15 13:14] LABS: Anion Gap 13 mmol/L (10-20); BUN (Urea Nitrogen) 15 mg/dL (8.4-25.7); Calc. Creatinine Clearance 0 mL/min (70-130); Calcium 8.6 mg/dL (7.8-10.44); Carbon Dioxide 28 mmol/L (23-31); Chloride 104 mmol/L (98-107); Glucose 119 mg/dL (80-115); Potassium 4.2 mmol/L (3.5-5.1); Sodium 141 mmol/L (136-145)
[2020-10-16 03:44] LABS: SARS-CoV-2 PCR by NAA Not Detected (NotDetected)
[2021-01-07 12:42] LABS: Hemoglobin 12.2 g/dL (13.5-17.5); Mean Corpuscular HGB CONC 31.9 g/dL (32.0-36.0); Mean Corpuscular Hemoglobin 29.1 pg (27.0-33.0); Mean Corpuscular Volume 91.2 fl (81.2-95.1); Mean Platelet Volume 10.3 fl (7.4-10.4); Platelet Count 217 10x3/uL (150-450); RBC Distribution Width 14.1 % (11.5-14.5); Red Blood Cell (RBC) Count 4.19 10x6/uL (4.32-5.72)
[2021-01-07 13:07] LABS: PTT 27.4 sec (22.0-33.0)
[2021-01-07 13:52] LABS: Anion Gap 13 mmol/L (10-20); BUN (Urea Nitrogen) 12 mg/dL (8.4-25.7); Calc. Creatinine Clearance 0 mL/min (70-130); Carbon Dioxide 33 mmol/L (23-31); Chloride 103 mmol/L (98-107); Glucose 102 mg/dL (80-115); Potassium 4.2 mmol/L (3.5-5.1); Sodium 145 mmol/L (136-145)
[2021-01-07 21:46] LABS: SARS-CoV-2 PCR by NAA Not Detected (NotDetected)
== END 2021-01-07 10:53 | disposition home or self-care (01) ==
LOC: LABBT 10:52
PROVIDERS: ATTEND Urology
DX: Z01.818 Encounter for other preprocedural examination (principal); R33.9 Retention of urine, unspecified; Z20.822 Contact with and (suspected) exposure to COVID-19
CPT/HCPCS: 80048; 85027; 85610; 85730; 87086; 87635; 93005; 93010; U0003; U0005

== ENCOUNTER 2021-01-10 06:37 | Day surgery (SDC) | payer BC ==
[2021-01-09 09:24] VITALS: BMI 20.9
[2021-01-10] MEDS ORDERED: Levofloxacin 500 mg/D5W 100 ml Premix Bag ONE (08:52)
[2021-01-10] MEDS ORDERED: Fentanyl 100 MCG/2 ML VIAL ONE (09:35)
[2021-01-10] MEDS ORDERED: Ondansetron PF 4 MG/2 ML Vial ONE (09:50)
[2021-01-10] MEDS ORDERED: ePHEDrine Sulfate 50 MG/10 ML VIAL ONE (09:50)
[2021-01-10] MEDS ORDERED: PROPOFOL 200 MG/20 ML VIAL ONE (09:50)
[2021-01-10] MEDS ORDERED: Dexamethasone 20 MG/5 ML VIAL ONE (09:50)
[2021-01-10] MEDS ORDERED: Lidocaine 1% PF 5 ML VIAL ONE (09:50)
== END 2021-01-10 12:25 | disposition home or self-care (01) ==
LOC: SDC 06:37
PROVIDERS: ATTEND Urology
PROC: 0TCB8ZZ Extirpation of Matter from Bladder, Via Natural or Artificial Opening Endoscopic (ICD-10-PCS; principal; 2021-01-10)
PROC: 0T2BX0Z Change Drainage Device in Bladder, External Approach (ICD-10-PCS; principal; 2021-01-10)
DX: R33.9 Retention of urine, unspecified (principal); N21.0 Calculus in bladder; I10 Essential (primary) hypertension; E78.00 Pure hypercholesterolemia, unspecified; Q54.0 Hypospadias, balanic; R53.2 Functional quadriplegia; Z87.891 Personal history of nicotine dependence; Z79.82 Long term (current) use of aspirin; Z79.899 Other long term (current) drug therapy; Z88.1 Allergy status to other antibiotic agents; Z88.8 Allergy status to other drugs, medicaments and biological substances
CPT/HCPCS: J1100; J1956; J2405; J2704; J3010